=== PATIENT | female | born 1935 | race Caucasian/White ===

== ENCOUNTER → 2017-08-27 10:03 | Outpatient (CLI) | payer MEDICARE, OTHER, SELFPAY ==
[2017-08-27 12:27] LABS: Absolute Lymphocyte Count 1.67 X10^3/ul (0.83-4.51); Absolute Neutrophil Count 4.7 X10^3/uL (2.0-7.7); Basophil# 0.02 X10^3/uL; Basophil% 0.3 % (0-1); Eosinophil# 0.15 X10^3/uL; Eosinophils% 2.1 % (0-5); Hematocrit 45.1 % (37-47); Hemoglobin 14.7 g/dl (12.0-15.0); Lymphocyte # 1.67 X10^3/ul (4.0); Lymphocyte % 23.7 % (19-41); Mean Corp Hgb Conc 32.6 g/gl (32-36); Mean Corpuscular Hgb 31.1 pg (27.0-32.0); Mean Corpuscular Volume 95.3 fL (81-99); Mean Platelet Vol. 10.5 fl (6.2-12.0); Monocyte# 0.53 X10^3/uL; Monocyte% 7.5 % (0-10); Neutrophil # 4.68 X10^3/uL (2.7-7.7); Neutrophil % 66.3 % (47-70); Platelet Count 220 K/mm3 (150-450); RBC Distribution Width CV 12.9 % (11.6-14.6); RBC Distribution Width SD 44.7 fl (35.1-43.9); Red Blood Count 4.73 M/mm3 (4.2-5.4); White Blood Count 7.1 K/mm3 (4.4-11.0)
[2017-08-27 12:42] LABS: POSITIVE COUNT NO; POSITIVE DIFFERENTIAL NO; POSITIVE MORPHOLOGY NO
[2017-08-27 12:55] LABS: Vitamin D,25 Hydroxy 27.8 ng/mL (19.95-100.01)
[2017-08-27 13:12] LABS: BUN 12 mg/dL (7-18); Creatinine, Serum 0.64 mg/dL (0.55-1.02); EST Glomerular Filtration Rate 95 mL/min (>60); Glucose 94 mg/dL (74-106)
[2017-08-27 13:13] LABS: ALB/GLOB Ratio 1.1 RATIO (0.9-2.4); AST(SGOT) 18 U/L (15-37); Alanine Aminotransfer ALT/SGPT 21 U/L (13-56); Albumin, Serum 3.5 g/dL (3.2-5.0); Alkaline Phosphatase 23 U/L (45-117); Anion Gap 11 (5-15); BUN/Creat Ratio 18.9 RATIO (10-20); Calcium,Total 8.9 mg/dL (8.5-10.1); Chloride 103 mmol/L (98-107); Est Glom Filt Rate - Afr Amer 115 mL/min (>60); Globulin 3.2 g/dL (2.2-4.2); Potassium 4.2 mmol/L (3.5-5.1); Protein, Total 6.7 g/dL (6.4-8.2); Sodium Level 140 mmol/L (136-145); Thyroid Stim Hormone (TSH) 3.15 uIU/mL (0.358-3.74)
== END ==
PROVIDERS: Family Provider Family Medicine; PCP Family Medicine; Visit Provider Family Medicine
DX: I10 Essential (primary) hypertension (principal); E55.9 Vitamin D deficiency, unspecified; K59.09 Other constipation
CPT/HCPCS: 36415; 80053; 82306; 84443; 85025

== ENCOUNTER → 2017-11-17 07:31 | Outpatient (CLI) | payer MEDICARE, OTHER, SELFPAY ==
[2017-11-17 09:05] LABS: AST(SGOT) 19 U/L (15-37); Alanine Aminotransfer ALT/SGPT 19 U/L (13-56); Albumin, Serum 3.3 g/dL (3.2-5.0); Alkaline Phosphatase 24 U/L (45-117); Bilirubin, Direct 0.16 mg/dL (0.00-0.30); Cholesterol 115 mg/dL (200); Globulin 3.3 g/dL (2.2-4.2); High Density Lipoprotein 53 mg/dL; Protein, Total 6.6 g/dL (6.4-8.2); Triglycerides 84 mg/dL; Very Low Density Lipoprotein 17 mg/dL (5-40)
== END ==
PROVIDERS: Family Provider Family Medicine; PCP Family Medicine; Visit Provider Physician Assistant Medical
DX: E78.5 Hyperlipidemia, unspecified (principal); Z79.899 Other long term (current) drug therapy
CPT/HCPCS: 36415; 80061; 80076

== ENCOUNTER → 2018-02-24 09:55 | Outpatient (CLI) | payer MEDICARE, OTHER, SELFPAY ==
[2018-02-24 12:36] LABS: Anion Gap 9 (5-15); BUN 12 mg/dL (7-18); BUN/Creat Ratio 17.3 RATIO (10-20); Calcium,Total 9.1 mg/dL (8.5-10.1); Chloride 106 mmol/L (98-107); Creatinine, Urine (random) < 13.00 mg/dL (NO RANGE EST.); EST Glomerular Filtration Rate 86 mL/min (>60); Est Glom Filt Rate - Afr Amer 104 mL/min (>60); Glucose 110 mg/dL (74-106); Potassium 4.5 mmol/L (3.5-5.1); Sodium Level 141 mmol/L (136-145); Thyroid Stim Hormone (TSH) 2.69 uIU/mL (0.358-3.74)
[2018-02-25 09:13] LABS: Vitamin D,25 Hydroxy 25.6 ng/mL (29.95-100.01)
== END ==
PROVIDERS: Family Provider Family Medicine; PCP Family Medicine; Visit Provider Family Medicine
DX: I10 Essential (primary) hypertension (principal); E55.9 Vitamin D deficiency, unspecified
CPT/HCPCS: 36415; 80048; 82043; 82306; 82570; 84443

== ENCOUNTER → 2018-08-18 09:28 | Outpatient (CLI) | payer MEDICARE, OTHER, SELFPAY ==
[2018-07-13 10:03] VITALS: BMI 32.9
[2018-08-18 11:46] LABS: Anion Gap 8 (5-15); BUN 13 mg/dL (7-18); BUN/Creat Ratio 21.6 RATIO (10-20); Calcium,Total 8.6 mg/dL (8.5-10.1); Chloride 107 mmol/L (98-107); EST Glomerular Filtration Rate 101 mL/min (>60); Est Glom Filt Rate - Afr Amer 122 mL/min (>60); Glucose 107 mg/dL (74-106); Potassium 4.3 mmol/L (3.5-5.1); Sodium Level 144 mmol/L (136-145)
== END ==
PROVIDERS: Family Provider Family Medicine; PCP Family Medicine; Visit Provider Family Medicine
DX: I10 Essential (primary) hypertension (principal)
CPT/HCPCS: 36415; 80048

== ENCOUNTER → 2018-10-13 15:32 | Outpatient (CLI) | payer MEDICARE, OTHER, SELFPAY ==
[2018-07-13 10:03] VITALS: BMI 32.9
--- NOTE | 2018-10-13 15:35 | BI_ITS ---
MAMMOGRAPHY - BILATERAL SCREENING REASON FOR EXAM: Female, 83 years old. Routine annual screening examination. PERTINENT HISTORY: Non-contributory. History of bilateral excisional breast biopsies. TECHNIQUE: Digital bilateral breast lola (3D mammographic acquisition) in the CC and MLO projections. 2-D mediolateral oblique (MLO) and craniocaudad (CC) views of both breasts were obtained. CAD: Full Field Digital Mammography with Computer Added Detection was performed. COMPARISON: Comparison is made with prior study dated April 01, 2011. FINDINGS: Breast Composition: The breasts are heterogeneously dense, which may obscure small masses. There are no dominant masses or suspicious calcifications. No other significant abnormalities are identified. There has been no significant change since the prior study. BI/SCREENING MAMM (CAD), BILAT IMPRESSION: Stable bilateral screening mammogram. Yearly follow-up mammogram recommended. (A) ASSESSMENT CATEGORY: BIRADS Category 1: Negative. A letter regarding these results will be sent to the patient by the facility within 30 days. Approximately 10% of breast cancers are not detected by mammography. A normal mammogram should not delay biopsy of a clinically suspicious abnormality. [id number] Electronically Signed: Marlon Ahmadi, at 9:24 EDT , Service support ,
--- NOTE | 2018-10-13 15:38 | BD_ITS ---
STUDY: DUAL ENERGY X-RAY ABSORPTIOMETRY / DXA REASON FOR EXAM: Female, 83 years old. The patient is postmenopausal. Loss of height. TECHNIQUE: Bone Mineral Density (BMD) measurements of lumbar spine and bilateral hips were obtained. COMPARISON: None. FINDINGS: Lumbar Spine (L1-L4): g/cm2 (1.249) / T-score (0.7) / Z-score (2.6) Findings are suggestive of normal bone density with a low fracture risk. Left Femur Total: g/cm2 (0.990) / T-score (-0.1) / Z-score (2.1) Left Femoral Neck: g/cm2 (0.973) / T-score (-0.5) / Z-score (1.8) Right Femur Total: g/cm2 (0.974) / T-score (-0.3) / Z-score (1.9) Right Femoral Neck: g/cm2 (1.051) / T-score (0.1) / Z-score (2.4) BD/Dexa Bone Density Study IMPRESSION: The patient is considered normal as outlined below according to World Gerem[employer] Organization (WHO) criteria with a low fracture risk. Reference Information: The T-score is the number of standard deviations above or below the standard which is normal for young adults at their peak bone mineral density. The World Health Organization (WHO) interprets the T-scores as follows: Above -1 Normal bone density Between -1 and -2.5 Osteopenia Equal to / or below -2.5 Osteoporosis As a practical clinical guideline, osteopenia may be graded as follows: Mild -1 through -1.5 Moderate -1.6 through -2.0 Severe -2.1 through -2.4 The Z-score is the number of standard deviations above or below age-matched controls. A Z-score of less than -1.5 would be considered abnormal. References: 1. NIH Osteoporosis and Related Bone Diseases http://www.osteo.org 2. International Society for Clinical Densitometry http://www.iscd.org 3. National Osteoporosis Foundation http://www.nof.org Electronically Signed: Marlon Ahmadi, at 9:37 EDT , Service support ,
== END ==
PROVIDERS: Family Provider Family Medicine; PCP Family Medicine; Referring Provider Family Medicine; Visit Provider Family Medicine
DX: Z78.0 Asymptomatic menopausal state (principal); Z12.31 Encounter for screening mammogram for malignant neoplasm of breast
CPT/HCPCS: 77063; 77067; 77080

== ENCOUNTER 2018-11-20 14:45 | Observation (INO) | payer MEDICARE, OTHER, SELFPAY ==
[2018-07-13 10:03] VITALS: BMI 32.9
[2018-11-20] VITALS (14 sets, daily range): BP systolic 140–169; BP diastolic 46–76; PULSE 45–89; RESP 14–18; TEMP 36.6–36.7; O2SAT 95–98; BMI 34.8; BMI 34.7
--- NOTE | 2018-11-20 15:29 | EKG12_ITS ---
Test Reason : WEAKNESS Blood Pressure : / mmHG Vent. Rate : 097 BPM Atrial Rate : 097 BPM P-R Int : 174 ms QRS Dur : 090 ms QT Int : 344 ms P-R-T Axes : 052 -27 074 degrees QTc Int : 436 ms Sinus rhythm with Premature supraventricular complexes and with frequent Premature ventricular comple xes Otherwise normal ECG Confirmed by EDGAR RUTH, LALY ([id number]), scientific publications editor YOUSIF GARZA ([id number]) on 11/21/2018 3:49:46 PM Referred By: BB Confirmed By:LALY HERNÁNDEZ MD
[2018-11-20] MEDS: 0.9% Normal Saline 1,000 ML 150 ML IV (15:30)
--- NOTE | 2018-11-20 15:30 | ED.VIS.GEN ---
History of Present Illness Chief Complaint: Weakness Informant: Patient, Family Onset: Today Context: Sudden Onset - several hours ago or so Timing: Continuous Quality: heaviness Location: midsternal chest Current Severity: Mild Maximum Severity: Mild Worsened by: nothing Relieved by: nothing Associated Symptoms: fatigue. slow heart rate. Narrative: Relatively suddenly today felt very weak and tired, could tell that her heart was beating slow without feeling palpitations necessarily, and chest discomfort that has been nonpleuritic and mild. She denies any dyspnea, nausea, near syncope or syncope. No recent illnesses or cough. Does not think she has had any swelling in her legs. Had 3 stents placed in her heart in [place] for over 5 years ago or more. - Past Medical History (1) Paroxysmal atrial fibrillation Status: Chronic (2) Atherosclerotic heart disease of [place] coronary artery without angina pectoris Status: Chronic Comment: PCI/MINERVA of CX 08/27/14; PCI/MINERVA f the LAD, POBA diag 08/31/14 (3) Hyperlipemia Status: Chronic (4) Hypersomnia Status: Chronic (5) Hypertension Status: Chronic (6) Presence of stent in coronary artery Status: Chronic Comment: PCI/MINERVA of CX 08/27/14; PCI/MINERVA f the LAD, POBA diag 08/31/14 Past Medical History - Allergies and Home Meds Allergies/Adverse Reactions: Allergies amoxicillin Allergy (Verified 07/13/18 10:04) Unknown Primary Care Physician: Yosi Oliver MD [Primary Care Provider] - Surgical History: angioplasty - w/ stent, cataract, hysterectomy, tonsillectomy Smoking Status: Never smoker Drugs: None - Family History Maternal Family History: Family History (Last Reviewed 01/06/18 @ 16:15 by Clayton Felder MD) Mother CAD (coronary artery disease) Myocardial infarction Father Alzheimer disease Brother Heart disease Dementia Hypertension Family History: Reports: Diabetes Paternal Family History: Family History (Last Reviewed 01/06/18 @ 16:15 by Clayton Felder MD) Mother CAD (coronary artery disease) Myocardial infarction Father Alzheimer disease Brother Heart disease Dementia Hypertension Family History: Reports: Unknown Sibling Family History: Family History (Last Reviewed 01/06/18 @ 16:15 by Clayton Felder MD) Mother CAD (coronary artery disease) Myocardial infarction Father Alzheimer disease Brother Heart disease Dementia Hypertension Family History: Reports: Heart Disease Review of Systems General: Reports: Malaise. Denies: Chills, Fever, Sweats Eyes: Denies: Visual changes - bilaterally, Diplopia ENT: Denies: Rhinorrhea, Sore throat Cardiovascular: Reports: Chest pain. Denies: Palpitations Respiratory: Denies: Dyspnea, Cough, Dyspnea on exertion Gastrointestinal: Denies: Abdominal pain, Nausea, Vomiting, Diarrhea, Melena, Hematochezia Genitourinary: Denies: Dysuria, Hematuria, Frequency Musculoskeletal: Reports: Arthralgias - chronic, unchanged. Denies: Back pain, Swelling Skin: Denies: Rash, Wounds Neurological: Denies: Headache, Weakness, Numbness Hematologic: Reports: Easy bruising, Easy bleeding Physical Exam Vital Signs/Narrative: Vital Signs Temp Pulse Resp BP Pulse Ox 11/20/18 15:02 97 11/20/18 14:53 54 L 14 95 11/20/18 14:46 98.1 F 47 L 15 153/64 H 96 Inital Vital Signs reviewed: Yes General: Well nourished, Well developed, No Acute Distress Head: Normocephalic, Atraumatic Eyes: Perrl, EOMI ENT: Moist mucous membranes, No rhinorrhea Neck: Supple, Nontender, No JVD Cardiovascular: Regular rate, Regular rhythm, No murmurs, Bradycardia Respiratory: No distress, CTA bilaterally, Chest nontender Abdomen: Soft, Nontender, Nondistended, Normal bowel sounds Back: Nontender, Normal Inspection Extremities: Nontender, Edema - 1-2+ BLE, symmetric. Negative for: Calf Tenderness Skin: Normal color, No rash, No Trauma Neurological: Alert, Oriented x3, Cranial nerves II-XII grossly intact, Normal Strength, Normal Sensation Psychological: Normal affect, Normal Mood Diagnostic/Tx/Re-eval Impressions Chest X-Ray 11/20/18 15:31 IMPRESSION: Stable appearance of the chest with no superimposed acute finding. Electronically Signed: Jose Cruz Ordonez MD at 15:51 EDT , Service support , 11/20/18 15:31 Chest 1 View (Portable) [RAD] Stat Laboratory Results 11/20/18 11/20/18 11/20/18 14:55 14:55 14:55 WBC 6.9 RBC 4.75 Hgb 14.8 Hct 44.6 MCV 93.9 MCH 31.2 MCHC 33.2 RDW 12.9 RDW Differential 44.3 H Plt Count 205 MPV 10.4 Immature Gran % (Auto) 0.100 Neut % (Auto) 55.0 Lymph % (Auto) 32.6 [place] % (Auto) 9.3 Eos % (Auto) 2.6 Baso % (Auto) 0.4 Absolute Neuts (auto) 3.8 Absolute Lymphs (auto) 2.25 Total Counted Not Reportable APTT 40.8 H Sodium 143 Potassium 3.7 Chloride 106 Carbon Dioxide 30.0 Anion Gap 7 BUN 12 Creatinine 0.85 Estim Creat Clear Calc 41.48 Est GFR (MDRD) Af Amer 82 Est GFR (MDRD) Non-Af 68 BUN/Creatinine Ratio 14.1 Glucose 164 H Calcium 8.8 Troponin I < 0.015 - Rhythm Strip Rhythm Strip: Sinus Rhythm Rate: 97 Ectopy: PVC(s) - EKG Initial EKG Interpretation: Sinus Rhythm, No Acute Injury Pattern, - - PACs and PVCs, mostly bigeminy - Medical Decision Making Patient's chest discomfort is minimal. Her troponin is negative and her other labs are stable, her EKG shows bigeminy, I suspect she feels very weak because technically, she is bradycardic with regards to her pulse. With her chest discomfort and history of coronary artery disease I think it would be enrique to admit her to rule out acute coronary syndrome. She is amenable to this plan and stable clinically and hemodynamically at this time. Will admit to PCU. ED Disposition - Plan for ED Patient: Disposition: Acute Care Hospital [facility] Diagnosis: Chest pain, unspecified, Symptomatic bradycardia, CAD (coronary artery disease), [place] coronary artery Referrals: Yosi Oliver MD [Primary Care Provider] -
--- NOTE | 2018-11-20 15:31 | RAD_ITS ---
STUDY: X-RAY CHEST REASON FOR EXAM: Female, 83 years old. Chest pain with palpitations. TECHNIQUE: Single frontal view of the chest. COMPARISON: January 17, 2015 FINDINGS: There is stable hyperexpansion. There is no demonstrated pleural abnormality. There is borderline cardiomegaly unchanged. Normal mediastinum and kris. Normal visualized pulmonary arteries. There is atherosclerotic calcification of the aortic arch with tortuosity. Normal visualized thoracic spine. Normal visualized ribs, clavicles, and shoulders. There is no demonstrated abnormality of the visualized soft tissue structures of the upper abdomen. RAD/Chest 1 View (Portable) IMPRESSION: Stable appearance of the chest with no superimposed acute finding. Electronically Signed: Jose Cruz Ordonez MD at 15:51 EDT , Service support ,
--- NOTE | 2018-11-20 15:35 | ED.DCSUM_ITS ---
History of Present Illness Chief Complaint: Weakness Informant: Patient, Family Onset: Today Context: Sudden Onset - several hours ago or so Timing: Continuous Quality: heaviness Location: midsternal chest Current Severity: Mild Maximum Severity: Mild Worsened by: nothing Relieved by: nothing Associated Symptoms: fatigue. slow heart rate. Narrative: Relatively suddenly today felt very weak and tired, could tell that her heart was beating slow without feeling palpitations necessarily, and chest discomfort that has been nonpleuritic and mild. She denies any dyspnea, nausea, near syncope or syncope. No recent illnesses or cough. Does not think she has had any swelling in her legs. Had 3 stents placed in her heart in [place] for over 5 years ago or more. - Past Medical History (1) Paroxysmal atrial fibrillation Status: Chronic (2) Atherosclerotic heart disease of [place] coronary artery without angina pectoris Status: Chronic Comment: PCI/MINERVA of CX 08/27/14; PCI/MINERVA f the LAD, POBA diag 08/31/14 (3) Hyperlipemia Status: Chronic (4) Hypersomnia Status: Chronic (5) Hypertension Status: Chronic (6) Presence of stent in coronary artery Status: Chronic Comment: PCI/MINERVA of CX 08/27/14; PCI/MINERVA f the LAD, POBA diag 08/31/14 Past Medical History - Allergies and Home Meds Allergies/Adverse Reactions: Allergies amoxicillin Allergy (Verified 07/13/18 10:04) Unknown Primary Care Physician: Yosi Oliver MD [Primary Care Provider] - Surgical History: angioplasty - w/ stent, cataract, hysterectomy, tonsillectomy Smoking Status: Never smoker Drugs: None - Family History Maternal Family History: Family History (Last Reviewed 01/06/18 @ 16:15 by Clayton Felder MD) Mother CAD (coronary artery disease) Myocardial infarction Father Alzheimer disease Brother Heart disease Dementia Hypertension Family History: Reports: Diabetes Paternal Family History: Family History (Last Reviewed 01/06/18 @ 16:15 by Clayton Felder MD) Mother CAD (coronary artery disease) Myocardial infarction Father Alzheimer disease Brother Heart disease Dementia Hypertension Family History: Reports: Unknown Sibling Family History: Family History (Last Reviewed 01/06/18 @ 16:15 by Clayton Felder MD) Mother CAD (coronary artery disease) Myocardial infarction Father Alzheimer disease Brother Heart disease Dementia Hypertension Family History: Reports: Heart Disease Review of Systems General: Reports: Malaise. Denies: Chills, Fever, Sweats Eyes: Denies: Visual changes - bilaterally, Diplopia ENT: Denies: Rhinorrhea, Sore throat Cardiovascular: Reports: Chest pain. Denies: Palpitations Respiratory: Denies: Dyspnea, Cough, Dyspnea on exertion Gastrointestinal: Denies: Abdominal pain, Nausea, Vomiting, Diarrhea, Melena, Hematochezia Genitourinary: Denies: Dysuria, Hematuria, Frequency Musculoskeletal: Reports: Arthralgias - chronic, unchanged. Denies: Back pain, Swelling Skin: Denies: Rash, Wounds Neurological: Denies: Headache, Weakness, Numbness Hematologic: Reports: Easy bruising, Easy bleeding Physical Exam Vital Signs/Narrative: Vital Signs Temp Pulse Resp BP Pulse Ox 11/20/18 15:02 97 11/20/18 14:53 54 L 14 95 11/20/18 14:46 98.1 F 47 L 15 153/64 H 96 Inital Vital Signs reviewed: Yes General: Well nourished, Well developed, No Acute Distress Head: Normocephalic, Atraumatic Eyes: Perrl, EOMI ENT: Moist mucous membranes, No rhinorrhea Neck: Supple, Nontender, No JVD Cardiovascular: Regular rate, Regular rhythm, No murmurs, Bradycardia Respiratory: No distress, CTA bilaterally, Chest nontender Abdomen: Soft, Nontender, Nondistended, Normal bowel sounds Back: Nontender, Normal Inspection Extremities: Nontender, Edema - 1-2+ BLE, symmetric. Negative for: Calf Tenderness Skin: Normal color, No rash, No Trauma Neurological: Alert, Oriented x3, Cranial nerves II-XII grossly intact, Normal Strength, Normal Sensation Psychological: Normal affect, Normal Mood Diagnostic/Tx/Re-eval Impressions Chest X-Ray 11/20/18 15:31 IMPRESSION: Stable appearance of the chest with no superimposed acute finding. Electronically Signed: Jose Cruz Ordonez MD at 15:51 EDT , Service support , 11/20/18 15:31 Chest 1 View (Portable) [RAD] Stat Laboratory Results 11/20/18 11/20/18 11/20/18 14:55 14:55 14:55 WBC 6.9 RBC 4.75 Hgb 14.8 Hct 44.6 MCV 93.9 MCH 31.2 MCHC 33.2 RDW 12.9 RDW Differential 44.3 H Plt Count 205 MPV 10.4 Immature Gran % (Auto) 0.100 Neut % (Auto) 55.0 Lymph % (Auto) 32.6 [place] % (Auto) 9.3 Eos % (Auto) 2.6 Baso % (Auto) 0.4 Absolute Neuts (auto) 3.8 Absolute Lymphs (auto) 2.25 Total Counted Not Reportable APTT 40.8 H Sodium 143 Potassium 3.7 Chloride 106 Carbon Dioxide 30.0 Anion Gap 7 BUN 12 Creatinine 0.85 Estim Creat Clear Calc 41.48 Est GFR (MDRD) Af Amer 82 Est GFR (MDRD) Non-Af 68 BUN/Creatinine Ratio 14.1 Glucose 164 H Calcium 8.8 Troponin I < 0.015 - Rhythm Strip Rhythm Strip: Sinus Rhythm Rate: 97 Ectopy: PVC(s) - EKG Initial EKG Interpretation: Sinus Rhythm, No Acute Injury Pattern, - - PACs and PVCs, mostly bigeminy - Medical Decision Making Patient's chest discomfort is minimal. Her troponin is negative and her other labs are stable, her EKG shows bigeminy, I suspect she feels very weak because technically, she is bradycardic with regards to her pulse. With her chest discomfort and history of coronary artery disease I think it would be enrique to admit her to rule out acute coronary syndrome. She is amenable to this plan and stable clinically and hemodynamically at this time. Will admit to PCU. ED Disposition - Plan for ED Patient: Disposition: Acute Care Hospital [facility] Diagnosis: Chest pain, unspecified, Symptomatic bradycardia, CAD (coronary artery disease), [place] coronary artery Referrals: Yosi Oliver MD [Primary Care Provider] -
[2018-11-20 15:44] LABS: Absolute Lymphocyte Count 2.25 X10^3/ul (0.83-4.51); Absolute Neutrophil Count 3.8 X10^3/uL (2.0-7.7); Basophil# 0.03 X10^3/uL; Basophil% 0.4 % (0-1); Eosinophil# 0.18 X10^3/uL; Eosinophils% 2.6 % (0-5); Hematocrit 44.6 % (37-47); Hemoglobin 14.8 g/dl (12.0-15.0); Lymphocyte # 2.25 X10^3/ul (4.0); Lymphocyte % 32.6 % (19-41); Mean Corp Hgb Conc 33.2 g/gl (32-36); Mean Corpuscular Hgb 31.2 pg (27.0-32.0); Mean Corpuscular Volume 93.9 fL (81-99); Mean Platelet Vol. 10.4 fl (6.2-12.0); Monocyte# 0.64 X10^3/uL; Monocyte% 9.3 % (0-10); Neutrophil # 3.79 X10^3/uL (2.7-7.7); Platelet Count 205 K/mm3 (150-450); RBC Distribution Width CV 12.9 % (11.6-14.6); RBC Distribution Width SD 44.3 fl (35.1-43.9); Red Blood Count 4.75 M/mm3 (4.2-5.4); White Blood Count 6.9 K/mm3 (4.4-11.0)
[2018-11-20 15:47] LABS: POSITIVE COUNT NO; POSITIVE DIFFERENTIAL NO; POSITIVE MORPHOLOGY NO
[2018-11-20 15:55] LABS: Anion Gap 7 (5-15); BUN 12 mg/dL (7-18); BUN/Creat Ratio 14.1 RATIO (10-20); Calcium,Total 8.8 mg/dL (8.5-10.1); Chloride 106 mmol/L (98-107); Creatinine, Serum 0.85 mg/dL (0.55-1.02); EST Glomerular Filtration Rate 68 mL/min (>60); Est Glom Filt Rate - Afr Amer 82 mL/min (>60); Estimated Creatinine Clearance 41.48 ml/min; Glucose 164 mg/dL (74-106); Potassium 3.7 mmol/L (3.5-5.1); Sodium Level 143 mmol/L (136-145)
[2018-11-20 15:56] LABS: Partial Thromboplast Time 40.8 Seconds (24.1-36.2)
--- NOTE | 2018-11-20 16:13 | NURSING ---
DR SINGER FOR DR NATHAN
--- NOTE | 2018-11-20 16:17 | NURSING ---
PCU OBS CP, NITA SINGER
[2018-11-20 16:18] LABS: Bacteria 0 SEEN /hpf (None Seen); Mucous, Urine 0 SEEN /hpf (<or=2+)
[2018-11-20 16:22] LABS: Color, Urine Yellow (Yellow); Glucose, Dipstick Normal (Normal); Ketone-Dipstick Negative (Negative); Leukocyte Esterase-Dipstick 500 /ul (Negative); Nitrite-Dipstick Negative (Negative); Occult Blood-Urine 50 /ul (Negative); Protein-Dipstick Negative (Negative); Urine Bilirubin Dipstick Negative (Negative); Urine Clarity Clear (Clear); Urine Urobilinogen Normal (Normal)
[2018-11-20 16:26] LABS: Red Blood Cells-Urine 0-5 SEEN /hpf (0-5); White Blood Cells 10-25 SEEN /hpf (0-5)
[2018-11-20 16:27] LABS: Squamous Epithelial Cells - UA 5-10 SEEN /hpf (5-10)
--- NOTE | 2018-11-20 16:40 | PCM.HP.STD ---
Problem List (1) Ventricular bigeminy Status: Acute (2) Chest pain Status: Acute Qualifiers: Chest pain type: unspecified Qualified Code(s): R07.9 - Chest pain, unspecified History of Present Illness Date of Admission: 11/20/18 Chief Complaint: chest pain. weak The patient is a 83 year old F who was in her normal state of health, up until this morning when she was at [employer] her patient just felt weak. Patient was experiencing her heart pounding and was just having this chest discomfort that did not radiate. Presented to the emergency room and was found to be in ventricular bigeminy. Heart rate was measuring in the 90s, but her actual pulse was about half that. Patient did receive IV fluids in the emergency room and had troponins and EKG, other than the bigeminy, that were negative. Patient being brought in under observation status for further evaluation regards to the bigeminy with cardiac evaluation and serial troponins. [] Past Medical History Past Medical History (Chronic Problems): Chronic Problems (Last Reviewed 11/20/18 @ 16:42 by Yosi Chairez DO) Presence of stent in coronary artery (Chronic) PCI/MINERVA of CX 08/27/14; PCI/MINERVA f the LAD, POBA diag 08/31/14 Atherosclerotic heart disease of [place] coronary artery without angina pectoris (Chronic) PCI/MINERVA of CX 08/27/14; PCI/MINERVA f the LAD, POBA diag 08/31/14 Paroxysmal atrial fibrillation (Chronic) Palpitations (Chronic) Long-term use of high-risk medication (Chronic) Hyperlipemia (Chronic) Hypoxemia (Chronic) Abnormal PFT (Chronic) Hypersomnia (Chronic) NSTEMI (non-ST elevated myocardial infarction) (Chronic) Hypertension (Chronic) Medical History: Medical History (Last Reviewed 11/20/18 @ 16:42 by Yosi Chairez DO) Atherosclerotic heart disease of [place] coronary artery without angina pectoris (Chronic) I25.10 PCI/MINERVA of CX 08/27/14; PCI/MINERVA f the LAD, POBA diag 08/31/14 Paroxysmal atrial fibrillation (Chronic) I48.0 Palpitations (Chronic) R00.2 Myocardial infarct (Resolved) I21.9 Long-term use of high-risk medication (Chronic) Z79.899 Hyperlipemia (Chronic) E78.5 Hypoxemia (Chronic) R09.02 Abnormal PFT (Chronic) R94.2 Hypersomnia (Chronic) G47.10 NSTEMI (non-ST elevated myocardial infarction) (Chronic) I21.4 Chest pain (Acute) R07.9 Hypertension (Chronic) I10 Pain in joint of left wrist M25.532 IBS (irritable bowel syndrome) K58.9 Ganglion cyst of dorsum of left wrist M67.432 Allergies amoxicillin Allergy (Verified 07/13/18 10:04) Unknown Home Medications: Ambulatory Orders Medication Instructions Recorded Aspirin [Aspirin, Baby] 81 mg PO DAILY 01/17/15 Atorvastatin Calcium [Lipitor] 40 mg PO QHS 01/17/15 Nitroglycerin (INPATIENT USE) 0.4 mg SUBLINGUAL Q5M PRN 01/17/15 [Nitrostat] Cholecalciferol (Vitamin D3) 1,000 unit PO DAILY 10/09/16 [Vitamin D3] Isosorbide Mononitrate [Imdur] 30 mg PO DAILY 10/09/16 Multivitamin [Daily Multiple 1 ea PO DAILY 10/09/16 Vitamin] Quinapril HCl [Accupril] 5 mg PO DAILY 10/09/16 ascorbic acid (vitamin C) 1,000 mg 3 g PO QDAY tab 09/01/17 tablet calcium citrate 250 mg tablet 250 mg PO BID tab 09/01/17 rivaroxaban 15 mg tablet 15 mg PO QDAY #30 tab 08/19/18 metoprolol tartrate 50 mg tablet 50 mg PO BID #60 tab 10/20/18 Docusate Sodium [Stool Softener] 100 mg PO QHS 11/20/18 Surgical History: Surgical History (Last Reviewed 11/20/18 @ 16:42 by Yosi Chairez DO) Presence of stent in coronary artery (Chronic) Z95.5 PCI/MINERVA of CX 08/27/14; PCI/MINERVA f the LAD, POBA diag 08/31/14 S/P wrist surgery Z98.890 Postsurgical percutaneous transluminal coronary angioplasty (PTCA) status Z98.61 PCI/MINERVA of CX 08/27/14; PCI/MINERVA f the LAD, POBA diag 08/31/14 Surgical History: angioplasty - w/ stent, cataract, hysterectomy, tonsillectomy Smoking Status: Never smoker Drugs: None - *Family History Maternal Family History: Family History (Last Reviewed 11/20/18 @ 16:42 by Yosi Chairez DO) Mother CAD (coronary artery disease) Myocardial infarction Father Alzheimer disease Brother Heart disease Dementia Hypertension History Items: Diabetes Paternal Family History: Family History (Last Reviewed 11/20/18 @ 16:42 by Yosi Chairez DO) Mother CAD (coronary artery disease) Myocardial infarction Father Alzheimer disease Brother Heart disease Dementia Hypertension History Items: Unknown Sibling Family History: Family History (Last Reviewed 11/20/18 @ 16:42 by Yosi Chairez DO) Mother CAD (coronary artery disease) Myocardial infarction Father Alzheimer disease Brother Heart disease Dementia Hypertension History Items: Heart Disease Review of Systems Constitutional: Reports: Weakness. Denies: Anorexia, Chills, Fever Eyes: Denies: Blurred vision, Double vision HEENT: Denies: Head Aches, Sinus Congestion, Sinus Drainage Cardiovascular: Reports: Chest Pain. Denies: Edema Respiratory: Denies: Cough, Shortness of breath at rest, Sputum production Gastrointestinal: Denies: Abdominal Pain, Nausea, Vomiting Genitourinary: Denies: Dysuria Musculoskeletal: Denies: Joint Pain, Joint Tenderness Skin: Denies: Dryness, Jaundice Neurological: Denies: Numbness, Tingling, Focal weakness Psychiatric: Denies: Anxiety, Depression Hematologic/ Lymphatic: Denies: Easy Bruising, Easy Bleeding, Hx of blood clot Comment: A 10 point review of systems were negative except as mentioned in the history of present illness and the other review of systems. VTE Information - Inpt Only VTE Present on Admission: No VTE Mechan Device Prophylaxis: None VTE Pharm Prophylaxis ordered?: No Reason prophylaxis not ordered:: Procedure Not Indicated Patient Problems: Active and Suspected Problems (Last Reviewed 11/20/18 @ 16:42 by Yosi Chairez DO) Symptomatic bradycardia (Acute) CAD (coronary artery disease), [place] coronary artery (Acute) Ventricular bigeminy (Acute) Chest pain (Acute) Chest pain (Acute) - Physical Exam General: Alert, Cooperative, No apparent distress HEENT: Atraumatic, Normocephalic Oral: Moist Mucosa, No Gingival or Mucosal Lesions/ Ulcerations Neck: No Nodes, Thyroid Normal Size and Texture Lungs: Clear to auscultation, Normal air movement, No rhonchi, No wheeze Cardiovascular: No murmurs, Bradycardic Abdomen: Bowel Sounds Present Extremities: No edema, No Calf Tenderness Skin: No rashes, No breakdown Musculoskeletal: No Tenderness to Palpation of Joints or Extremities, No Muscle Wasting Neurological: Deep Tendon Reflexes 2+/4 and Symmetrical, - - No clonus Psych/Mental Status: Normal Affect, Appropriate Vital Signs Temp Pulse Resp BP Pulse Ox 36.7 C 54 L 14 153/64 H 97 11/20/18 14:46 11/20/18 14:53 11/20/18 14:53 11/20/18 14:46 11/20/18 15:29 Oxygen Flow Rate (L/min) 2 Oxygen Delivery Method Nasal Cannula Weight: 89.2 kg Body Mass Index (BMI) 34.8 Laboratory Tests Past 24 Hrs 11/20/18 11/20/18 11/20/18 14:55 14:55 14:55 WBC 6.9 RBC 4.75 Hgb 14.8 Hct 44.6 MCV 93.9 MCH 31.2 MCHC 33.2 RDW 12.9 RDW Differential 44.3 H Plt Count 205 MPV 10.4 Immature Gran % (Auto) 0.100 Neut % (Auto) 55.0 Lymph % (Auto) 32.6 [place] % (Auto) 9.3 Eos % (Auto) 2.6 Baso % (Auto) 0.4 Absolute Neuts (auto) 3.8 Absolute Lymphs (auto) 2.25 Total Counted Not Reportable APTT 40.8 H Sodium 143 Potassium 3.7 Chloride 106 Carbon Dioxide 30.0 Anion Gap 7 BUN 12 Creatinine 0.85 Estim Creat Clear Calc 41.48 Est GFR (MDRD) Af Amer 82 Est GFR (MDRD) Non-Af 68 BUN/Creatinine Ratio 14.1 Glucose 164 H Calcium 8.8 Troponin I < 0.015 Urine Color Urine Clarity Urine pH Ur Specific [place] Urine Protein Urine Glucose (UA) Urine Ketones Urine Occult Blood Urine Nitrite Urine Bilirubin Urine Urobilinogen Ur Leukocyte Esterase Urine RBC Urine WBC Ur Squamous Epith Cells Urine Bacteria Urine Mucus 11/20/18 16:05 WBC RBC Hgb Hct MCV MCH MCHC RDW RDW Differential Plt Count MPV Immature Gran % (Auto) Neut % (Auto) Lymph % (Auto) [place] % (Auto) Eos % (Auto) Baso % (Auto) Absolute Neuts (auto) Absolute Lymphs (auto) Total Counted APTT Sodium Potassium Chloride Carbon Dioxide Anion Gap BUN Creatinine Estim Creat Clear Calc Est GFR (MDRD) Af Amer Est GFR (MDRD) Non-Af BUN/Creatinine Ratio Glucose Calcium Troponin I Urine Color Yellow Urine Clarity Clear Urine pH 6.0 Ur Specific [place] 1.020 Urine Protein Negative Urine Glucose (UA) Normal Urine Ketones Negative Urine Occult Blood 50 H Urine Nitrite Negative Urine Bilirubin Negative Urine Urobilinogen Normal Ur Leukocyte Esterase 500 H Urine RBC 0-5 SEEN Urine WBC 10-25 SEEN Ur Squamous Epith Cells 5-10 SEEN Urine Bacteria 0 SEEN Urine Mucus 0 SEEN Clinical Impression(s) from Imaging Studies Chest X-Ray 11/20/18 15:31 IMPRESSION: Stable appearance of the chest with no superimposed acute finding. Electronically Signed: Jose Cruz Ordonez MD at 15:51 EDT , Service support , EKG reveals ventricular bigeminy. No other acute changes noted. Assessment/Plan All Active Problems (Last Reviewed 11/20/18 @ 16:42 by Yosi Chairez DO) Symptomatic bradycardia (Acute) CAD (coronary artery disease), [place] coronary artery (Acute) Ventricular bigeminy (Acute) Chest pain (Acute) Myocardial infarct (Resolved) Chest pain (Acute) 1. Ventricular bigeminy Telemetric a heart rate measuring in the 90s, but actual pulses half that. That likely explains her just weakness and likely her palpitations. Given her low pulse, despite her heart rate being normal, we will hold her metoprolol for now. Consult cardiology for further input. Dr. Beth has been contacted. Cycle troponins. Check an echocardiogram. Check TSH Will replace potassium to level 4, check magnesium level as well. 2. Chest pain Patient characterize this more is just the pulsation in her chest. Not sure if that is due to 2 beats stacked on top of each other or not that is causing the sensation. Will consult cardiology as mentioned above Cycle troponins Continue aspirin and atorvastatin 3. Paroxysmal atrial fibrillation Currently anticoagulated on rivaroxaban Metoprolol on hold for now please see #1 for further details. 4. Hyperglycemia No history of diabetes Hemoglobin A1c from 2013 was 6.1 patient will be on moderate dose sliding scale 5. VTE prophylaxis Not indicated as patient is a low risk due to this being in observation status today and as well as she is already on anticoagulation with rivaroxaban. Additionally, patient being given antibiotics in the emergency room. On review the patient's urinalysis I am not concerned for urinary tract infection will not continue antibiotics. Code Visit OBSV E&M: [id number] Initial observation care L3
--- NOTE | 2018-11-20 16:49 | HP.PCM_ITS ---
Problem List (1) Ventricular bigeminy Status: Acute (2) Chest pain Status: Acute Qualifiers: Chest pain type: unspecified Qualified Code(s): R07.9 - Chest pain, unspecified History of Present Illness Date of Admission: 11/20/18 Chief Complaint: chest pain. weak The patient is a 83 year old F who was in her normal state of health, up until this morning when she was at [employer] her patient just felt weak. Patient was experiencing her heart pounding and was just having this chest discomfort that did not radiate. Presented to the emergency room and was found to be in ventricular bigeminy. Heart rate was measuring in the 90s, but her actual pulse was about half that. Patient did receive IV fluids in the emergency room and had troponins and EKG, other than the bigeminy, that were negative. Patient being brought in under observation status for further evaluation regards to the bigeminy with cardiac evaluation and serial troponins. [] Past Medical History Past Medical History (Chronic Problems): Chronic Problems (Last Reviewed 11/20/18 @ 16:42 by Yosi Chairez DO) Presence of stent in coronary artery (Chronic) PCI/MINERVA of CX 08/27/14; PCI/MINERVA f the LAD, POBA diag 08/31/14 Atherosclerotic heart disease of [place] coronary artery without angina pectoris (Chronic) PCI/MINERVA of CX 08/27/14; PCI/MINERVA f the LAD, POBA diag 08/31/14 Paroxysmal atrial fibrillation (Chronic) Palpitations (Chronic) Long-term use of high-risk medication (Chronic) Hyperlipemia (Chronic) Hypoxemia (Chronic) Abnormal PFT (Chronic) Hypersomnia (Chronic) NSTEMI (non-ST elevated myocardial infarction) (Chronic) Hypertension (Chronic) Medical History: Medical History (Last Reviewed 11/20/18 @ 16:42 by Yosi Chairez DO) Atherosclerotic heart disease of [place] coronary artery without angina pectoris (Chronic) I25.10 PCI/MINERVA of CX 08/27/14; PCI/MINERVA f the LAD, POBA diag 08/31/14 Paroxysmal atrial fibrillation (Chronic) I48.0 Palpitations (Chronic) R00.2 Myocardial infarct (Resolved) I21.9 Long-term use of high-risk medication (Chronic) Z79.899 Hyperlipemia (Chronic) E78.5 Hypoxemia (Chronic) R09.02 Abnormal PFT (Chronic) R94.2 Hypersomnia (Chronic) G47.10 NSTEMI (non-ST elevated myocardial infarction) (Chronic) I21.4 Chest pain (Acute) R07.9 Hypertension (Chronic) I10 Pain in joint of left wrist M25.532 IBS (irritable bowel syndrome) K58.9 Ganglion cyst of dorsum of left wrist M67.432 Allergies amoxicillin Allergy (Verified 07/13/18 10:04) Unknown Home Medications: Ambulatory Orders Medication Instructions Recorded Aspirin [Aspirin, Baby] 81 mg PO DAILY 01/17/15 Atorvastatin Calcium [Lipitor] 40 mg PO QHS 01/17/15 Nitroglycerin (INPATIENT USE) 0.4 mg SUBLINGUAL Q5M PRN 01/17/15 [Nitrostat] Cholecalciferol (Vitamin D3) 1,000 unit PO DAILY 10/09/16 [Vitamin D3] Isosorbide Mononitrate [Imdur] 30 mg PO DAILY 10/09/16 Multivitamin [Daily Multiple 1 ea PO DAILY 10/09/16 Vitamin] Quinapril HCl [Accupril] 5 mg PO DAILY 10/09/16 ascorbic acid (vitamin C) 1,000 mg 3 g PO QDAY tab 09/01/17 tablet calcium citrate 250 mg tablet 250 mg PO BID tab 09/01/17 rivaroxaban 15 mg tablet 15 mg PO QDAY #30 tab 08/19/18 metoprolol tartrate 50 mg tablet 50 mg PO BID #60 tab 10/20/18 Docusate Sodium [Stool Softener] 100 mg PO QHS 11/20/18 Surgical History: Surgical History (Last Reviewed 11/20/18 @ 16:42 by Yosi Chairez DO) Presence of stent in coronary artery (Chronic) Z95.5 PCI/MINERVA of CX 08/27/14; PCI/MINERVA f the LAD, POBA diag 08/31/14 S/P wrist surgery Z98.890 Postsurgical percutaneous transluminal coronary angioplasty (PTCA) status Z98.61 PCI/MINERVA of CX 08/27/14; PCI/MINERVA f the LAD, POBA diag 08/31/14 Surgical History: angioplasty - w/ stent, cataract, hysterectomy, tonsillectomy Smoking Status: Never smoker Drugs: None - *Family History Maternal Family History: Family History (Last Reviewed 11/20/18 @ 16:42 by Yosi Chairez DO) Mother CAD (coronary artery disease) Myocardial infarction Father Alzheimer disease Brother Heart disease Dementia Hypertension History Items: Diabetes Paternal Family History: Family History (Last Reviewed 11/20/18 @ 16:42 by Yosi Chairez DO) Mother CAD (coronary artery disease) Myocardial infarction Father Alzheimer disease Brother Heart disease Dementia Hypertension History Items: Unknown Sibling Family History: Family History (Last Reviewed 11/20/18 @ 16:42 by Yosi Chairez DO) Mother CAD (coronary artery disease) Myocardial infarction Father Alzheimer disease Brother Heart disease Dementia Hypertension History Items: Heart Disease Review of Systems Constitutional: Reports: Weakness. Denies: Anorexia, Chills, Fever Eyes: Denies: Blurred vision, Double vision HEENT: Denies: Head Aches, Sinus Congestion, Sinus Drainage Cardiovascular: Reports: Chest Pain. Denies: Edema Respiratory: Denies: Cough, Shortness of breath at rest, Sputum production Gastrointestinal: Denies: Abdominal Pain, Nausea, Vomiting Genitourinary: Denies: Dysuria Musculoskeletal: Denies: Joint Pain, Joint Tenderness Skin: Denies: Dryness, Jaundice Neurological: Denies: Numbness, Tingling, Focal weakness Psychiatric: Denies: Anxiety, Depression Hematologic/ Lymphatic: Denies: Easy Bruising, Easy Bleeding, Hx of blood clot Comment: A 10 point review of systems were negative except as mentioned in the history of present illness and the other review of systems. VTE Information - Inpt Only VTE Present on Admission: No VTE Mechan Device Prophylaxis: None VTE Pharm Prophylaxis ordered?: No Reason prophylaxis not ordered:: Procedure Not Indicated Patient Problems: Active and Suspected Problems (Last Reviewed 11/20/18 @ 16:42 by Yosi Chairez DO) Symptomatic bradycardia (Acute) CAD (coronary artery disease), [place] coronary artery (Acute) Ventricular bigeminy (Acute) Chest pain (Acute) Chest pain (Acute) - Physical Exam General: Alert, Cooperative, No apparent distress HEENT: Atraumatic, Normocephalic Oral: Moist Mucosa, No Gingival or Mucosal Lesions/ Ulcerations Neck: No Nodes, Thyroid Normal Size and Texture Lungs: Clear to auscultation, Normal air movement, No rhonchi, No wheeze Cardiovascular: No murmurs, Bradycardic Abdomen: Bowel Sounds Present Extremities: No edema, No Calf Tenderness Skin: No rashes, No breakdown Musculoskeletal: No Tenderness to Palpation of Joints or Extremities, No Muscle Wasting Neurological: Deep Tendon Reflexes 2+/4 and Symmetrical, - - No clonus Psych/Mental Status: Normal Affect, Appropriate Vital Signs Temp Pulse Resp BP Pulse Ox 36.7 C 54 L 14 153/64 H 97 11/20/18 14:46 11/20/18 14:53 11/20/18 14:53 11/20/18 14:46 11/20/18 15:29 Oxygen Flow Rate (L/min) 2 Oxygen Delivery Method Nasal Cannula Weight: 89.2 kg Body Mass Index (BMI) 34.8 Laboratory Tests Past 24 Hrs 11/20/18 11/20/18 11/20/18 14:55 14:55 14:55 WBC 6.9 RBC 4.75 Hgb 14.8 Hct 44.6 MCV 93.9 MCH 31.2 MCHC 33.2 RDW 12.9 RDW Differential 44.3 H Plt Count 205 MPV 10.4 Immature Gran % (Auto) 0.100 Neut % (Auto) 55.0 Lymph % (Auto) 32.6 [place] % (Auto) 9.3 Eos % (Auto) 2.6 Baso % (Auto) 0.4 Absolute Neuts (auto) 3.8 Absolute Lymphs (auto) 2.25 Total Counted Not Reportable APTT 40.8 H Sodium 143 Potassium 3.7 Chloride 106 Carbon Dioxide 30.0 Anion Gap 7 BUN 12 Creatinine 0.85 Estim Creat Clear Calc 41.48 Est GFR (MDRD) Af Amer 82 Est GFR (MDRD) Non-Af 68 BUN/Creatinine Ratio 14.1 Glucose 164 H Calcium 8.8 Troponin I < 0.015 Urine Color Urine Clarity Urine pH Ur Specific [place] Urine Protein Urine Glucose (UA) Urine Ketones Urine Occult Blood Urine Nitrite Urine Bilirubin Urine Urobilinogen Ur Leukocyte Esterase Urine RBC Urine WBC Ur Squamous Epith Cells Urine Bacteria Urine Mucus 11/20/18 16:05 WBC RBC Hgb Hct MCV MCH MCHC RDW RDW Differential Plt Count MPV Immature Gran % (Auto) Neut % (Auto) Lymph % (Auto) [place] % (Auto) Eos % (Auto) Baso % (Auto) Absolute Neuts (auto) Absolute Lymphs (auto) Total Counted APTT Sodium Potassium Chloride Carbon Dioxide Anion Gap BUN Creatinine Estim Creat Clear Calc Est GFR (MDRD) Af Amer Est GFR (MDRD) Non-Af BUN/Creatinine Ratio Glucose Calcium Troponin I Urine Color Yellow Urine Clarity Clear Urine pH 6.0 Ur Specific [place] 1.020 Urine Protein Negative Urine Glucose (UA) Normal Urine Ketones Negative Urine Occult Blood 50 H Urine Nitrite Negative Urine Bilirubin Negative Urine Urobilinogen Normal Ur Leukocyte Esterase 500 H Urine RBC 0-5 SEEN Urine WBC 10-25 SEEN Ur Squamous Epith Cells 5-10 SEEN Urine Bacteria 0 SEEN Urine Mucus 0 SEEN Clinical Impression(s) from Imaging Studies Chest X-Ray 11/20/18 15:31 IMPRESSION: Stable appearance of the chest with no superimposed acute finding. Electronically Signed: Jose Cruz Ordonez MD at 15:51 EDT , Service support , EKG reveals ventricular bigeminy. No other acute changes noted. Assessment/Plan All Active Problems (Last Reviewed 11/20/18 @ 16:42 by Yosi Chairez DO) Symptomatic bradycardia (Acute) CAD (coronary artery disease), [place] coronary artery (Acute) Ventricular bigeminy (Acute) Chest pain (Acute) Myocardial infarct (Resolved) Chest pain (Acute) 1. Ventricular bigeminy * Telemetric a heart rate measuring in the 90s, but actual pulses half that. That likely explains her just weakness and likely her palpitations. * Given her low pulse, despite her heart rate being normal, we will hold her metoprolol for now. * Consult cardiology for further input. Dr. Beth has been contacted. * Cycle troponins. * Check an echocardiogram. * Check TSH * Will replace potassium to level 4, check magnesium level as well. 2. Chest pain * Patient characterize this more is just the pulsation in her chest. Not sure if that is due to 2 beats stacked on top of each other or not that is causing the sensation. * Will consult cardiology as mentioned above * Cycle troponins * Continue aspirin and atorvastatin 3. Paroxysmal atrial fibrillation * Currently anticoagulated on rivaroxaban * Metoprolol on hold for now please see #1 for further details. 4. Hyperglycemia * No history of diabetes * Hemoglobin A1c from 2013 was 6.1 * patient will be on moderate dose sliding scale 5. VTE prophylaxis * Not indicated as patient is a low risk due to this being in observation status today and as well as she is already on anticoagulation with rivaroxaban. Additionally, patient being given antibiotics in the emergency room. On review the patient's urinalysis I am not concerned for urinary tract infection will not continue antibiotics. Code Visit OBSV E&M: [id number] Initial observation care L3
--- NOTE | 2018-11-20 17:02 | ECHOD_ITS ---
Reason For Study: Chest pain Procedure This was a 2D Doppler, Color Flow transthoracic echocardiogram. Exam performed portable in patient room. Left Ventricle Normal LV size. Mild concentric left ventricular hypertrophy. The estimated ejection fraction is 70 %. Unable to assess diastolic dysfunction due to arrhythmia. No regional wall motion abnormalities noted. Right Ventricle Normal RV size. Normal systolic function. Atria Normal left atrium. Normal right atrium. Mitral Valve Normal mitral valve. Tricuspid Valve Normal tricuspid valve. Mild (1+) tricuspid valve insufficiency. Pulmonary artery systolic pressure is 30 mmHg. Aortic Valve Trisinus/trileaflet aortic valve. Mild focal aortic valve thickening. Pulmonic Valve Normal pulmonic valve. Great Vessels Normal aortic root. The pulmonary artery is normal size. Normal inferior vena cava. Pericardium/Pleural No pericardial effusion. MMode/2D Measurements & Calculations LVIDd: 3.5 cm IVSd: 1.2 cm Ao root diam: 3.6 cm LVIDs: 2.3 cm LVPWd: 1.2 cm RVDd: 3.0 cm FS: 34.9 % LAV(MOD-bp): 59.7 ml LA A4 area: 19.2 cm2 LA dimension(2D): 4.5 cm LAV(MOD-bp) Indexed: 31.1 ml/m2 LAV(MOD-sp2): 65.5 ml LAV(MOD-sp4): 49.5 ml RA A4 area: 15.0 cm2 Doppler Measurements & Calculations MV E max kevon: 102.9 cm/sec Ao V2 max: 143.8 cm/sec LV V1 max: 89.8 cm/sec Ao max P.3 mmHg LV V1 max P.2 mmHg PA V2 max: 116.0 cm/sec TR max kevon: 257.0 cm/sec TR max P.4 mmHg Interpretation Summary Normal LV size. Mild concentric left ventricular hypertrophy. The estimated ejection fraction is 70 %. Mild (1+) tricuspid valve insufficiency. Pulmonary artery systolic pressure is 30 mmHg. Unable to assess diastolic dysfunction due to arrhythmia. Compared to prior study, there is no significant change. Ordering Physician: Yosi Chairez Referring Physician: Yosi Oliver MD Performed By: Dayna Tsang RDCS
[2018-11-20 17:28] LABS: Hemoglobin A1c 6.2 % (4.2-6.3)
--- NOTE | 2018-11-20 17:34 | EKG12_ITS ---
Test Reason : AM EKG Blood Pressure : / mmHG Vent. Rate : 073 BPM Atrial Rate : 073 BPM P-R Int : 178 ms QRS Dur : 084 ms QT Int : 392 ms P-R-T Axes : 042 -16 050 degrees QTc Int : 431 ms Normal sinus rhythm Normal ECG When compared with ECG of 20-NOV-2018 19:55, MANUAL COMPARISON REQUIRED, DATA IS UNCONFIRMED Confirmed by EDGAR RUTH, LALY ([id number]), online content editor JASON REYES ([id number]) on 11/22/2018 11:17:06 AM Referred By: LUCRECIA Confirmed By:LALY HERNÁNDEZ MD
--- NOTE | 2018-11-20 17:50 | PCM.CONS.C ---
Problem List (1) Fatigue Status: Acute Qualifiers: Fatigue type: unspecified Qualified Code(s): R53.83 - Other fatigue (2) Symptomatic bradycardia Status: Acute (3) Ectopic cardiac beats Status: Chronic (4) Paroxysmal atrial fibrillation Status: Chronic (5) CAD (coronary artery disease), [place] coronary artery Status: Chronic Qualifiers: [place] vs. transplanted heart: [place] heart (6) Presence of stent in coronary artery Status: Chronic Comment: PCI/MINERVA of CX 08/27/14; PCI/MINERVA f the LAD, POBA diag 08/31/14 (7) Hyperlipemia Status: Chronic Qualifiers: Hyperlipidemia type: pure hypercholesterolemia Qualified Code(s): E78.00 - Pure hypercholesterolemia, unspecified; E78.0 - Pure hypercholesterolemia (8) Hypertension Status: Chronic Qualifiers: Hypertension type: essential hypertension Qualified Code(s): I10 - Essential (primary) hypertension Reason for Consult Date of Consultation: 11/20/18 History of Present Illness: The patient is a 83 year old female with a past medical history of PACs/PVCs, paroxysmal atrial fibrillation, CAD, status post PTCA/stent to the LCx system and PTCA/stent to the LAD system, hyperlipidemia, and hypertension who presents for evaluation of fatigue and concerns of symptomatic bradycardia and underlying cardiac ectopy. She states she has been more fatigued than usual recently. However, today she noted following faith she became more abruptly fatigued and felt that she had to push to get anything accomplished. She denied any ongoing palpitations. There was no near syncope or syncope. She states she felt somewhat more short of breath and dyspneic. She also felt somewhat of a heaviness on her chest. She was subsequently brought to the emergency department for further evaluation. There she was found on evaluation to have an abnormal cardiac rate/rhythm thought concerning for underlying bradycardia with PACs and PVCs in the pattern of atrial bigeminy/ventricular bigeminy. Her initial troponin I level was negative. Her ECG did not demonstrate other new acute ECG changes. She was then placed in the PCU for further evaluation. A repeat ECG appeared to be without significant change. She was evaluated by internal medicine. Based upon concerns of her symptoms and her bradycardia dysrhythmia her beta-blockers were placed on hold. She has denied ongoing orthopnea or PND or worsening peripheral pitting edema. Again she states there is been no near syncope or syncope. Her main concern is been progressive fatigue and being much more prominent today. [] Past Medical History Allergies/Adverse Reactions: Allergies amoxicillin Allergy (Verified 07/13/18 10:04) Unknown Home Medications: Ambulatory Orders Medication Instructions Recorded Aspirin [Aspirin, Baby] 81 mg PO DAILY 01/17/15 Atorvastatin Calcium [Lipitor] 40 mg PO QHS 01/17/15 Nitroglycerin (INPATIENT USE) 0.4 mg SUBLINGUAL Q5M PRN 01/17/15 [Nitrostat] Cholecalciferol (Vitamin D3) 1,000 unit PO DAILY 10/09/16 [Vitamin D3] Isosorbide Mononitrate [Imdur] 30 mg PO DAILY 10/09/16 Multivitamin [Daily Multiple 1 ea PO DAILY 10/09/16 Vitamin] Quinapril HCl [Accupril] 5 mg PO DAILY 10/09/16 ascorbic acid (vitamin C) 1,000 mg 3 g PO QDAY tab 09/01/17 tablet calcium citrate 250 mg tablet 250 mg PO BID tab 09/01/17 rivaroxaban 15 mg tablet 15 mg PO QDAY #30 tab 08/19/18 metoprolol tartrate 50 mg tablet 50 mg PO BID #60 tab 10/20/18 Docusate Sodium [Stool Softener] 100 mg PO QHS 11/20/18 Past Medical History (Chronic Problems): Chronic Problems (Last Reviewed 11/20/18 @ 16:42 by Yosi Chairez DO) CAD (coronary artery disease), [place] coronary artery (Chronic) Ectopic cardiac beats (Chronic) Presence of stent in coronary artery (Chronic) PCI/MINERVA of CX 08/27/14; PCI/MINERVA f the LAD, POBA diag 08/31/14 Atherosclerotic heart disease of [place] coronary artery without angina pectoris (Chronic) PCI/MINERVA of CX 08/27/14; PCI/MINERVA f the LAD, POBA diag 08/31/14 Paroxysmal atrial fibrillation (Chronic) Palpitations (Chronic) Long-term use of high-risk medication (Chronic) Hyperlipemia (Chronic) Hypoxemia (Chronic) Abnormal PFT (Chronic) Hypersomnia (Chronic) NSTEMI (non-ST elevated myocardial infarction) (Chronic) Hypertension (Chronic) Surgical History: angioplasty - w/ stent, cataract, hysterectomy, tonsillectomy - *Family History Maternal Family History: Family History (Last Reviewed 11/20/18 @ 16:42 by Yosi Chairez DO) Mother CAD (coronary artery disease) Myocardial infarction Father Alzheimer disease Brother Heart disease Dementia Hypertension History Items: Diabetes Paternal Family History: Family History (Last Reviewed 11/20/18 @ 16:42 by Yosi Chairez DO) Mother CAD (coronary artery disease) Myocardial infarction Father Alzheimer disease Brother Heart disease Dementia Hypertension History Items: Unknown Sibling Family History: Family History (Last Reviewed 11/20/18 @ 16:42 by Yosi Chairez DO) Mother CAD (coronary artery disease) Myocardial infarction Father Alzheimer disease Brother Heart disease Dementia Hypertension History Items: Heart Disease Lives: Alone - resides in an F Smoking Status: Never smoker Alcohol: None Drugs: None Review of Systems - Review of Systems General: Reports: Fatigue, Weakness. Denies: Fever, Night Sweats Cardiovascular: Reports: Chest Discomfort at Rest, Shortness of Breath. Denies: Chest Discomfort, Orthopnea, PND, Peripheral Edema, Palpitations, Lightheadedness, Dizziness, Near Syncope, Syncope Respiratory: Reports: Shortness of Breath. Denies: Cough, Sputum Production, Hemoptysis Gastrointestinal: Denies: Hematemesis, Hematochezia, Melena Genitourinary: Denies: Dysuria, Hematuria Skin: Denies: Rash Subjectve: This is an 83-year-old white female who appears to be resting comfortably at the moment in no acute distress. Objective: Vital Signs Temp Pulse Resp BP Pulse Ox 97.9 F 88 16 140/56 H 98 11/20/18 17:31 11/20/18 17:31 11/20/18 17:31 11/20/18 17:31 11/20/18 17:31 Oxygen Flow Rate (L/min) 2 Oxygen Delivery Method Nasal Cannula Weight: 190 lb Body Mass Index (BMI) 34.7 General: Awake, Alert, Oriented x 3, Cooperative, No Acute Distress HEENT: Atraumatic, Normocephalic, PERRL, EOMI, Sclera Non Icteric Oral: Moist Mucosa Neck: Supple, Good ROM, No JVD Lungs: Clear to auscultation Cardiovascular: Regular Rhythm, Premature Ectopic Beats, Normal S1, Normal S2 Vascular: No Carotid Bruits Abdomen: Bowel Sounds Present, Soft, Non Tender Extremities: No Cyanosis, No Clubbing, No edema Neurological: No Focal Motor or Sensory Deficit Psych/Mental Status: Appropriate 11/20/18 14:55: WBC 6.9, RBC 4.75, Hgb 14.8, Hct 44.6, MCV 93.9, MCH 31.2, MCHC 33.2, RDW 12.9, RDW Differential 44.3 H, Plt Count 205, MPV 10.4, Immature Gran % (Auto) 0.100, Neut % (Auto) 55.0, Lymph % (Auto) 32.6, Schleicher % (Auto) 9.3, Eos % (Auto) 2.6, Baso % (Auto) 0.4, Absolute Neuts (auto) 3.8, Total Counted Not Reportable 11/20/18 14:55: Sodium 143, Potassium 3.7, Chloride 106, Carbon Dioxide 30.0, Anion Gap 7, BUN 12, Creatinine 0.85, Est GFR (MDRD) Af Amer 82, Est GFR (MDRD) Non-Af 68, BUN/Creatinine Ratio 14.1, Glucose 164 H, Calcium 8.8, Troponin I < 0.015 11/20/18 14:55: APTT 40.8 H 11/20/18 14:55: Magnesium 2.0 11/20/18 14:55: Hemoglobin A1c 6.2 11/20/18 16:05: Urine Color Yellow, Urine Clarity Clear, Urine pH 6.0, Ur Specific [place] 1.020, Urine Protein Negative, Urine Glucose (UA) Normal, Urine Ketones Negative, Urine Occult Blood 50 H, Urine Nitrite Negative, Urine Bilirubin Negative, Urine Urobilinogen Normal, Ur Leukocyte Esterase 500 H, Urine RBC 0-5 SEEN, Urine WBC 10-25 SEEN Rhythm: Sinus rhythm; PACs; PVCs EKG: As noted above ECHO: 08/27/2016: Left ventricle considered normal with an LVEF 65% with mild concentric LVH; mild left atrial enlargement; mild MR; trivial TR/NM Stress Test: 01-18-15: Pharmacologic stress nuclear imaging study: Myocardial perfusion with evidence of minimal mid anterior and mid inferior ischemia with preserved LVEF of 66% Cardiac Cath: ? 15: [place], [place]: Left main with no angiographically significant disease LAD with proximal 80 to 90% luminal irregularity Diagonal branch with ostial 50% luminal irregularity LCx is proximally occluded RCA being dominant with mid 25 to 50% stenosis with the remainder the vessel with diffuse luminal irregularities Right to left collateral flow Left ventricle normal with an LVEF of 58% PCI: 08-27-14: LCx PTCA/MINERVA: 2.75 x 22 mm resolute stent and 2.75 x 8 mm resolute stent 08-31-14: LAD PTCA/MINERVA: 3.5 x [address] Surgery: Holter monitor: 08/02/2014: Sinus rhythm; PACs; PVCs Event monitor: June 2016-July 2016: Sinus rhythm; PACs including bigeminy and trigeminy Quadra [place]ue a pair and a burst of SVT of 4 beats; PVCs; 2 episodes of atrial fibrillation up to 140 bpm CXR: Pulmonary evaluation: No acute cardiopulmonary disease process appreciated: Please see official report Assessment/Plan 1. Fatigue The patient experienced fatigue becoming more prominent today. At the present time it is unclear whether it is related to her underlying cardiac ectopy or appearance of bradycardia versus other cardiovascular related issues based upon her history of CAD and/or change in her ventricular function versus noncardiac issues. She will continue to be monitored. She will have follow-up cardiac enzymes and ECGs. An echocardiogram has been requested to evaluate her left ventricular wall motion and systolic function. It would not be unreasonable to repeat her pharmacologic stress nuclear imaging study, which to the best of her knowledge has not been performed as her PCI procedures, to reassess for any obvious ongoing myocardial ischemia that would warrant repeat invasive evaluation or care. Her beta-madeleine therapy is on temporary hold based on concerns of her bradycardia dysrhythmia. However, depending upon her clinical course and findings she may or may not need further adjustment of her medications and/or if it is felt that her underlying bradycardia is contributing to her symptoms then she may also need to be considered for permanent pacemaker placement. This would allow her to take her medications such as her beta-blockers for her ectopy and other dysrhythmias. 2. Bradycardia She does have findings compatible with bradycardia. Again it is unclear if this is the sole etiology for her fatigue. At the moment her rate and rhythm will be followed. She will continue evaluation care as noted above. 3. Cardiac ectopy She has been documented in the past have evidence of PACs and PVCs and various patterns. She demonstrate this today as well. It is unclear as to whether or not this is truly the etiology for her symptoms. She will continue evaluation care as noted above. 4. Paroxysmal atrial fibrillation She has been found to have paroxysmal atrial fibrillation. She has been on rate control therapy and anticoagulant therapy. Thus far she has not demonstrated recurrent paroxysmal atrial fibrillation. She will be monitored for any obvious rhythm changes. If she requires further invasive evaluation than her anticoagulant therapy will need to be placed on hold. 5. CAD status post PCI She has a history of PCI to the LCx distribution and the LAD distribution. She has felt fatigue which she also demonstrated chest heaviness. Thus this does raise concern as to whether or not her coronary disease can be contributing to her symptoms, rate changes, rhythm changes, etc. She will continue to be monitored. She will continue medical management as deemed appropriate at this time. She will be scheduled for further evaluation as noted above with noninvasive studies. Depending upon the findings she may need repeat invasive evaluation. Unless urgent or emergent that would take place once her anticoagulant therapy has dissipated. 6. Hyperlipidemia She will continue lipid-lowering therapy. 7. Hypertension Her blood pressures will be followed. Her medications can be adjusted as needed taking into consideration her underlying rate and rhythm. Comment: The patient's case was discussed and reviewed with the patient, her family members present, and Dr. Chairez. This note was generated using a voice recognition system and there may be incorrect words, spelling or punctuation that were not noted when reviewing the office note prior to saving.
--- NOTE | 2018-11-20 17:55 | CON.PCM_ITS ---
Problem List (1) Fatigue Status: Acute Qualifiers: Fatigue type: unspecified Qualified Code(s): R53.83 - Other fatigue (2) Symptomatic bradycardia Status: Acute (3) Ectopic cardiac beats Status: Chronic (4) Paroxysmal atrial fibrillation Status: Chronic (5) CAD (coronary artery disease), [place] coronary artery Status: Chronic Qualifiers: [place] vs. transplanted heart: [place] heart (6) Presence of stent in coronary artery Status: Chronic Comment: PCI/MINERVA of CX 08/27/14; PCI/MINERVA f the LAD, POBA diag 08/31/14 (7) Hyperlipemia Status: Chronic Qualifiers: Hyperlipidemia type: pure hypercholesterolemia Qualified Code(s): E78.00 - Pure hypercholesterolemia, unspecified; E78.0 - Pure hypercholesterolemia (8) Hypertension Status: Chronic Qualifiers: Hypertension type: essential hypertension Qualified Code(s): I10 - Essential (primary) hypertension Reason for Consult Date of Consultation: 11/20/18 History of Present Illness: The patient is a 83 year old female with a past medical history of PACs/PVCs, paroxysmal atrial fibrillation, CAD, status post PTCA/stent to the LCx system and PTCA/stent to the LAD system, hyperlipidemia, and hypertension who presents for evaluation of fatigue and concerns of symptomatic bradycardia and underlying cardiac ectopy. She states she has been more fatigued than usual recently. How ever, today she noted following sabianism she became more abruptly fatigued and felt that she had to push to get anything accomplished. She denied any ongoing palpitations. There was no near syncope or syncope. She states she felt somewhat more short of breath and dyspneic. She also felt somewhat of a heaviness on her chest. She was subsequently brought to the emergency department for further evaluation. There she was found on evaluation to have an abnormal cardiac rate/rhythm thought concerning for underlying bradycardia with PACs and PVCs in the pattern of atrial bigeminy/ventricular bigeminy. Her initial troponin I level was negative. Her ECG did not demonstrate other new acute ECG changes. She was then placed in the PCU for further evaluation. A repeat ECG appeared to be without significant change. She was evaluated by internal medicine. Based upon concerns of her symptoms and her bradycardia dysrhythmia her beta-blockers were placed on hold. She has denied ongoing orthopnea or PND or worsening peripheral pitting edema. Again she states there is been no near syncope or syncope. Her main concern is been progressive fatigue and being much more prominent today. [] Past Medical History Allergies/Adverse Reactions: Allergies amoxicillin Allergy (Verified 07/13/18 10:04) Unknown Home Medications: Ambulatory Orders Medication Instructions Recorded Aspirin [Aspirin, Baby] 81 mg PO DAILY 01/17/15 Atorvastatin Calcium [Lipitor] 40 mg PO QHS 01/17/15 Nitroglycerin (INPATIENT USE) 0.4 mg SUBLINGUAL Q5M PRN 01/17/15 [Nitrostat] Cholecalciferol (Vitamin D3) 1,000 unit PO DAILY 10/09/16 [Vitamin D3] Isosorbide Mononitrate [Imdur] 30 mg PO DAILY 10/09/16 Multivitamin [Daily Multiple 1 ea PO DAILY 10/09/16 Vitamin] Quinapril HCl [Accupril] 5 mg PO DAILY 10/09/16 ascorbic acid (vitamin C) 1,000 mg 3 g PO QDAY tab 09/01/17 tablet calcium citrate 250 mg tablet 250 mg PO BID tab 09/01/17 rivaroxaban 15 mg tablet 15 mg PO QDAY #30 tab 08/19/18 metoprolol tartrate 50 mg tablet 50 mg PO BID #60 tab 10/20/18 Docusate Sodium [Stool Softener] 100 mg PO QHS 11/20/18 Past Medical History (Chronic Problems): Chronic Problems (Last Reviewed 11/20/18 @ 16:42 by Yosi Chairez DO) CAD (coronary artery disease), [place] coronary artery (Chronic) Ectopic cardiac beats (Chronic) Presence of stent in coronary artery (Chronic) PCI/MINERVA of CX 08/27/14; PCI/MINERVA f the LAD, POBA diag 08/31/14 Atherosclerotic heart disease of [place] coronary artery without angina pectoris (Chronic) PCI/MINERVA of CX 08/27/14; PCI/MINERVA f the LAD, POBA diag 08/31/14 Paroxysmal atrial fibrillation (Chronic) Palpitations (Chronic) Long-term use of high-risk medication (Chronic) Hyperlipemia (Chronic) Hypoxemia (Chronic) Abnormal PFT (Chronic) Hypersomnia (Chronic) NSTEMI (non-ST elevated myocardial infarction) (Chronic) Hypertension (Chronic) Surgical History: angioplasty - w/ stent, cataract, hysterectomy, tonsillectomy - *Family History Maternal Family History: Family History (Last Reviewed 11/20/18 @ 16:42 by Yosi Chairez DO) Mother CAD (coronary artery disease) Myocardial infarction Father Alzheimer disease Brother Heart disease Dementia Hypertension History Items: Diabetes Paternal Family History: Family History (Last Reviewed 11/20/18 @ 16:42 by Yosi Chairez DO) Mother CAD (coronary artery disease) Myocardial infarction Father Alzheimer disease Brother Heart disease Dementia Hypertension History Items: Unknown Sibling Family History: Family History (Last Reviewed 11/20/18 @ 16:42 by Yosi Chairez DO) Mother CAD (coronary artery disease) Myocardial infarction Father Alzheimer disease Brother Heart disease Dementia Hypertension History Items: Heart Disease Lives: Alone - resides in an F Smoking Status: Never smoker Alcohol: None Drugs: None Review of Systems - Review of Systems General: Reports: Fatigue, Weakness. Denies: Fever, Night Sweats Cardiovascular: Reports: Chest Discomfort at Rest, Shortness of Breath. Denies: Chest Discomfort, Orthopnea, PND, Peripheral Edema, Palpitations, Lightheadedness, Dizziness, Near Syncope, Syncope Respiratory: Reports: Shortness of Breath. Denies: Cough, Sputum Production, Hemoptysis Gastrointestinal: Denies: Hematemesis, Hematochezia, Melena Genitourinary: Denies: Dysuria, Hematuria Skin: Denies: Rash Subjectve: This is an 83-year-old white female who appears to be resting comfortably at the moment in no acute distress. Objective: Vital Signs Temp Pulse Resp BP Pulse Ox 97.9 F 88 16 140/56 H 98 11/20/18 17:31 11/20/18 17:31 11/20/18 17:31 11/20/18 17:31 11/20/18 17:31 Oxygen Flow Rate (L/min) 2 Oxygen Delivery Method Nasal Cannula Weight: 190 lb Body Mass Index (BMI) 34.7 General: Awake, Alert, Oriented x 3, Cooperative, No Acute Distress HEENT: Atraumatic, Normocephalic, PERRL, EOMI, Sclera Non Icteric Oral: Moist Mucosa Neck: Supple, Good ROM, No JVD Lungs: Clear to auscultation Cardiovascular: Regular Rhythm, Premature Ectopic Beats, Normal S1, Normal S2 Vascular: No Carotid Bruits Abdomen: Bowel Sounds Present, Soft, Non Tender Extremities: No Cyanosis, No Clubbing, No edema Neurological: No Focal Motor or Sensory Deficit Psych/Mental Status: Appropriate 11/20/18 14:55: WBC 6.9, RBC 4.75, Hgb 14.8, Hct 44.6, MCV 93.9, MCH 31.2, MCHC 33.2, RDW 12.9, RDW Differential 44.3 H, Plt Count 205, MPV 10.4, Immature Gran % (Auto) 0.100, Neut % (Auto) 55.0, Lymph % (Auto) 32.6, [place] % (Auto) 9.3, Eos % (Auto) 2.6, Baso % (Auto) 0.4, Absolute Neuts (auto) 3.8, Total Counted Not Reportable 11/20/18 14:55: Sodium 143, Potassium 3.7, Chloride 106, Carbon Dioxide 30.0, Anion Gap 7, BUN 12, Creatinine 0.85, Est GFR (MDRD) Af Amer 82, Est GFR (MDRD) Non-Af 68, BUN/Creatinine Ratio 14.1, Glucose 164 H, Calcium 8.8, Troponin I < 0.015 11/20/18 14:55: APTT 40.8 H 11/20/18 14:55: Magnesium 2.0 11/20/18 14:55: Hemoglobin A1c 6.2 11/20/18 16:05: Urine Color Yellow, Urine Clarity Clear, Urine pH 6.0, Ur Specific [place] 1.020, Urine Protein Negative, Urine Glucose (UA) Normal, Urine Ketones Negative, Urine Occult Blood 50 H, Urine Nitrite Negative, Urine Bilirubin Negative, Urine Urobilinogen Normal, Ur Leukocyte Esterase 500 H, Urine RBC 0-5 SEEN, Urine WBC 10-25 SEEN Rhythm: Sinus rhythm; PACs; PVCs EKG: As noted above ECHO: 08/27/2016: Left ventricle considered normal with an LVEF 65% with mild concentric LVH; mild left atrial enlargement; mild MR; trivial TR/MT Stress Test: 01-18-15: Pharmacologic stress nuclear imaging study: Myocardial perfusion with evidence of minimal mid anterior and mid inferior ischemia with preserved LVEF of 66% Cardiac Cath: ? 15: [place], [place]: Left main with no angiographically significant disease LAD with proximal 80 to 90% luminal irregularity Diagonal branch with ostial 50% luminal irregularity LCx is proximally occluded RCA being dominant with mid 25 to 50% stenosis with the remainder the vessel with diffuse luminal irregularities Right to left collateral flow Left ventricle normal with an LVEF of 58% PCI: 08-27-14: LCx PTCA/MINERVA: 2.75 x 22 mm resolute stent and 2.75 x 8 mm resolute stent 08-31-14: LAD PTCA/MINERVA: 3.5 x [address] Surgery: Holter monitor: 08/02/2014: Sinus rhythm; PACs; PVCs Event monitor: June 2016-July 2016: Sinus rhythm; PACs including bigeminy and trigeminy Quadra [place]ue a pair and a burst of SVT of 4 beats; PVCs; 2 episodes of atrial fibrillation up to 140 bpm CXR: Pulmonary evaluation: No acute cardiopulmonary disease process appreciated: Please see official report Assessment/Plan 1. Fatigue The patient experienced fatigue becoming more prominent today. At the present time it is unclear whether it is related to her underlying cardiac ectopy or appearance of bradycardia versus other cardiovascular related issues based upon her history of CAD and/or change in her ventricular function versus noncardiac issues. She will continue to be monitored. She will have follow-up cardiac enzymes and ECGs. An echocardiogram has been requested to evaluate her left ventricular wall motion and systolic function. It would not be unreasonable to repeat her pharmacologic stress nuclear imaging study, which to the best of her knowledge has not been performed as her PCI procedures, to reassess for any obvious ongoing myocardial ischemia that would warrant repeat invasive evaluation or care. Her beta-madeleine therapy is on temporary hold based on concerns of her bradyca rdia dysrhythmia. However, depending upon her clinical course and findings she may or may not need further adjustment of her medications and/or if it is felt that her underlying bradycardia is contributing to her symptoms then she may also need to be considered for permanent pacemaker placement. This would allow her to take her medications such as her beta-blockers for her ectopy and other dysrhythmias. 2. Bradycardia She does have findings compatible with bradycardia. Again it is unclear if this is the sole etiology for her fatigue. At the moment her rate and rhythm will be followed. She will continue evaluation care as noted above. 3. Cardiac ectopy She has been documented in the past have evidence of PACs and PVCs and various patterns. She demonstrate this today as well. It is unclear as to whether or not this is truly the etiology for her symptoms. She will continue evaluation care as noted above. 4. Paroxysmal atrial fibrillation She has been found to have paroxysmal atrial fibrillation. She has been on rate control therapy and anticoagulant therapy. Thus far she has not demonstrated recurrent paroxysmal atrial fibrillation. She will be monitored for any obvious rhythm changes. If she requires further invasive evaluation than her anticoagulant therapy will need to be placed on hold. 5. CAD status post PCI She has a history of PCI to the LCx distribution and the LAD distribution. She has felt fatigue which she also demonstrated chest heaviness. Thus this does raise concern as to whether or not her coronary disease can be contributing to her symptoms, rate changes, rhythm changes, etc. She will continue to be monitored. She will continue medical management as deemed appropriate at this time. She will be scheduled for further evaluation as noted above with noninvasive studies. Depending upon the findings she may need repeat invasive evaluation. Unless urgent or emergent that would take place once her anticoagulant therapy has dissipated. 6. Hyperlipidemia She will continue lipid-lowering therapy. 7. Hypertension Her blood pressures will be followed. Her medications can be adjusted as needed taking into consideration her underlying rate and rhythm. Comment: The patient's case was discussed and reviewed with the patient, her family members present, and Dr. Chairez. This note was generated using a voice recognition system and there may be incorrect words, spelling or punctuation that were not noted when reviewing the office note prior to saving.
[2018-11-20] MEDS: Acetaminophen 325 MG Tablet 650 MG PO (18:23)
[2018-11-20 18:36] LABS: Bedside Glucose 86 mg/dL (70-110)
--- NOTE | 2018-11-20 19:45 | EKG12_ITS ---
Test Reason : CP ADMISSION Blood Pressure : / mmHG Vent. Rate : 088 BPM Atrial Rate : 088 BPM P-R Int : 176 ms QRS Dur : 086 ms QT Int : 364 ms P-R-T Axes : 057 -13 064 degrees QTc Int : 440 ms Sinus rhythm with frequent Premature ventricular complexes in a pattern of bigeminy Otherwise normal ECG When compared with ECG of 17-JAN-2015 15:51, Premature ventricular complexes are now Present Vent. rate has increased BY 30 BPM Confirmed by EDGAR RUTH, LALY ([id number]), editor news JASON REYES ([id number]) on 11/22/2018 11:18:09 AM Referred By: LUCRECIA Confirmed By:LALY HERNÁNDEZ MD
[2018-11-20] MEDS: Docusate Sodium 100 MG Capsule PO (22:31)
[2018-11-20] MEDS: Atorvastatin Calcium 40 MG Tablet PO (22:31)
[2018-11-20 22:46] LABS: Bedside Glucose 125 mg/dL (70-110)
[2018-11-21] VITALS (8 sets, daily range): BP systolic 140–157; BP diastolic 50–84; PULSE 66–101; RESP 16; TEMP 36.4–36.6; O2SAT 94–97
[2018-11-21] MEDS: Aspirin 81 MG TAB.CHEW PO (05:15)
[2018-11-21] MEDS: Lisinopril 5 MG Tablet PO (05:15)
[2018-11-21 05:44] LABS: Hematocrit 42.1 % (37-47); Hemoglobin 13.9 g/dl (12.0-15.0); Mean Corpuscular Hgb 30.9 pg (27.0-32.0); Mean Corpuscular Volume 93.6 fL (81-99); Mean Platelet Vol. 10.1 fl (6.2-12.0); Platelet Count 178 K/mm3 (150-450); RBC Distribution Width CV 12.9 % (11.6-14.6); RBC Distribution Width SD 43.1 fl (35.1-43.9)
--- NOTE | 2018-11-21 05:55 | EKG12_ITS ---
Test Reason : A-FIB Blood Pressure : / mmHG Vent. Rate : 092 BPM Atrial Rate : 288 BPM P-R Int : 000 ms QRS Dur : 084 ms QT Int : 346 ms P-R-T Axes : 000 -23 060 degrees QTc Int : 427 ms Atrial fibrillation Abnormal ECG When compared with ECG of 20-NOV-2018 17:29, MANUAL COMPARISON REQUIRED, DATA IS UNCONFIRMED Confirmed by EDGAR RUTH, LALY ([id number]), electronic news gathering editor JASON REYES ([id number]) on 11/22/2018 11:17:47 AM Referred By: LUCRECIA Confirmed By:LALY HERNÁNDEZ MD
[2018-11-21 05:59] LABS: Partial Thromboplast Time 35.4 Seconds (24.1-36.2)
[2018-11-21 06:06] LABS: Anion Gap 6 (5-15); BUN 10 mg/dL (7-18); BUN/Creat Ratio 17.2 RATIO (10-20); Calcium,Total 8.4 mg/dL (8.5-10.1); Chloride 111 mmol/L (98-107); Creatinine, Serum 0.58 mg/dL (0.55-1.02); EST Glomerular Filtration Rate 105 mL/min (>60); Est Glom Filt Rate - Afr Amer 127 mL/min (>60); Estimated Creatinine Clearance 33.71 ml/min; Glucose 103 mg/dL (74-106); Potassium 4.2 mmol/L (3.5-5.1); Sodium Level 144 mmol/L (136-145); Thyroid Stim Hormone (TSH) 4.84 uIU/mL (0.358-3.74)
[2018-11-21 06:09] LABS: Scan Indicated on CBC? Y/N NO
[2018-11-21 06:13] LABS: International Normalized Ratio 1.4; Prothrombin Time (Protime)PT. 16.5 SECONDS (11.7-14.9)
[2018-11-21 06:50] LABS: Bedside Glucose 112 mg/dL (70-110)
[2018-11-21] MEDS: Acetaminophen 325 MG Tablet 650 MG PO (09:27)
--- NOTE | 2018-11-21 11:14 | PN_ITS ---
Patient Problems: Active and Suspected Problems (Last Reviewed 11/20/18 @ 16:42 by Yosi Chairez DO) Symptomatic bradycardia (Acute) Ventricular bigeminy (Acute) Chest pain (Acute) Fatigue (Acute) Chest pain (Acute) Subjective: Patient is an 83-year-old lady admitted with chest pain and generalized weakness EKG demonstrated bigeminy's Objective: GENERAL: cooperative HEENT: Atraumatic; EYES; Anicteric, Normal Conjunctiva NECK; supple, normal thyroid, RESPIRATORY: Diminished to auscultation bilaterally, CARDIOVASCULAR: Regular S1 S2, GI: soft, non-tender, normoactive bowel sounds, : No Renal angle tenderness; EXTREMITIES: No edema, no clubbing, MUSCULOSKELETAL: No Joint Tenderness; NEURO: Awake; no lateralizing signs. SKIN: No Rash PSYCH; Normal affect Vitals/I&O's: Vital Signs Temp Pulse Resp BP Pulse Ox 97.9 F 85 16 152/66 H 97 11/21/18 09:14 11/21/18 09:14 11/21/18 09:14 11/21/18 09:14 11/21/18 09:14 Oxygen Flow Rate (L/min) 2 Oxygen Delivery Method Nasal Cannula Weight: 86.183 kg Body Mass Index (BMI) 34.7 Intake and Output for Last 24 Hours 11/19/18 11/20/18 11/21/18 23:59 23:59 23:59 Intake Total 480 / 480 Balance 480 / 480 Microbiology Past 72 Hours 11/20/18 16:05 Urine, Clean Catch Urine Culture - Final Mixed Gram Positive Organisms Laboratory Results 11/20/18 14:55: WBC 6.9, RBC 4.75, Hgb 14.8, Hct 44.6, MCV 93.9, MCH 31.2, MCHC 33.2, RDW 12.9, RDW Differential 44.3 H, Plt Count 205, MPV 10.4, Immature Gran % (Auto) 0.100, Neut % (Auto) 55.0, Lymph % (Auto) 32.6, [place] % (Auto) 9.3, Eos % (Auto) 2.6, Baso % (Auto) 0.4, Absolute Neuts (auto) 3.8, Absolute Lymphs (auto) 2.25, Total Counted Not Reportable 11/20/18 14:55: Sodium 143, Potassium 3.7, Chloride 106, Carbon Dioxide 30.0, Anion Gap 7, BUN 12, Creatinine 0.85, Estim Creat Clear Calc 41.48, Est GFR (MDRD) Af Amer 82, Est GFR (MDRD) Non-Af 68, BUN/Creatinine Ratio 14.1, Glucose 164 H, Calcium 8.8, Troponin I < 0.015 11/20/18 14:55: APTT 40.8 H 11/20/18 14:55: Magnesium 2.0 11/20/18 14:55: Hemoglobin A1c 6.2 11/20/18 16:05: Urine Color Yellow, Urine Clarity Clear, Urine pH 6.0, Ur Specific [place] 1.020, Urine Protein Negative, Urine Glucose (UA) Normal, Urine Ketones Negative, Urine Occult Blood 50 H, Urine Nitrite Negative, Urine Bilirubin Negative, Urine Urobilinogen Normal, Ur Leukocyte Esterase 500 H, Urine RBC 0-5 SEEN, Urine WBC 10-25 SEEN, Ur Squamous Epith Cells 5-10 SEEN, Urine Bacteria 0 SEEN, Urine Mucus 0 SEEN 11/20/18 18:07: Troponin I < 0.015 11/20/18 18:19: POC Glucose 86 11/20/18 20:45: Troponin I < 0.015 11/20/18 22:39: POC Glucose 125 H 11/21/18 05:25: Sodium 144, Potassium 4.2, Chloride 111 H, Carbon Dioxide 27.0, Anion Gap 6, BUN 10, Creatinine 0.58, Estim Creat Clear Calc 33.71, Est GFR (MDRD) Af Amer 127, Est GFR (MDRD) Non-Af 105, BUN/Creatinine Ratio 17.2, G lucose 103, Calcium 8.4 L, TSH 4.84 H 11/21/18 05:25: WBC 6.0, RBC 4.50, Hgb 13.9, Hct 42.1, MCV 93.6, MCH 30.9, MCHC 33.0, RDW 12.9, RDW Differential 43.1, Plt Count 178, MPV 10.1 11/21/18 05:25: PT 16.5 H, INR 1.4, APTT 35.4 11/21/18 06:43: POC Glucose 112 H Current Medications Acetaminophen (Tylenol) 650 mg PO Q6H PRN PRN PRN Reason: Mild pain 1-3/Temp > 100.7 F Last Admin: 11/21/18 09:27 Dose: 650 mg [facility]) [facility] Last Admin: 11/21/18 05:15 Dose: 81 mg Atorvastatin Calcium (Lipitor) 40 mg PO QHS [facility] Last Admin: 11/20/18 22:31 Dose: 40 mg [facility]cium [facility]ate [facility]) [facility] Cholecalciferol (Vitamin D) 1,000 unit PO DAILY [facility] Dextrose (D50w Syringe) 0 gm IV X1 PRN; Protocol PRN Reason: Hypoglycemia Docusate Sodium (Colace) 100 mg PO QHS [facility] Last Admin: 11/20/18 22:31 Dose: 100 mg Glucagon () 1 mg IM .X1 PRN PRN Reason: Hypoglycemia Insulin Human Lispro (Humalog Kwikpen (Bkc)) 0 unit SQ TIDAC [facility]; Protocol Last Admin: 11/21/18 06:44 Dose: Not Given Isosorbide Mononitrate (Imdur) 30 mg PO DAILY [facility] Lisinopril (Zestril) 5 mg PO DAILY [facility] Last Admin: 11/21/18 05:15 Dose: 5 mg Multivitamins (Multivitamin) 1 tablet PO DAILY@0800 [facility] Nitroglycerin (Nitrostat) 0.4 mg SUBLINGUAL Q5M PRN PRN Reason: Chest Pain Ondansetron HCl (Zofran) 4 mg IV Q8H PRN PRN PRN Reason: NAUSEA/VOMITING Rivaroxaban (Xarelto) 15 mg PO DAILY@1700 [facility] Sodium Chloride () 5 - 15 ml IV UD PRN PRN Reason: SALINE FLUSH Medical Necessity - Tobacco Use Smoking Status: Never smoker Assessment/Plan All Active Problems (Last Reviewed 11/20/18 @ 16:42 by Yosi Chairez DO) Symptomatic bradycardia (Acute) Ventricular bigeminy (Acute) Chest pain (Acute) Fatigue (Acute) Myocardial infarct (Resolved) Chest pain (Acute) Patient is an 83-year-old lady admitted with chest pain and generalized weakness EKG demonstrated bigeminy's 1. Chest pain admitted to monitored bed [place] has been ruled out with serial c ardiac enzymes. In view of patient bigeminy's as well as previous cardiac history consultation was placed to cardiology patient seen by Dr. Beth who recommended patient undergo subsequent evaluation with a nuclear stress testing 2. Paroxysmal atrial fibrillation 3. Coronary artery disease with previous stent placement to circumflex and LAD 4. Hypertension-blood pressure controlled, home medications continued with dose adjustment as needed 5. Dyslipidemia-patient is on statin therapy, continued at home dose Code Visit OBSV E&M: [id number] Subsequent observation care L3
--- NOTE | 2018-11-21 12:09 | STRESSREP ---
Stress Test Report Pharmacologic myocardial perfusion stress test. 83-year-old lady with a history of palpitations. Medications: Aspirin, Lipitor, Inderal, Zestril. Stress protocol: Resting EKG demonstrates atrial fibrillation with a rate of 94 bpm normal intervals are noted resting blood pressure is 138/82 mmHg. 0.4 mg of regadenoson was infused per usual protocol followed by rapid intravenous saline flush injection continuous EKG monitoring was performed. The maximum heart rate attained was 142 bpm which was 103% of maximum predicted heart rate the maximum workload was 1 metabolic equivalent. At rest there were no ST or T wave changes noted suggest abnormal flow reserve at peak infusion nonspecific ST-T wave changes were noted with no meet the criteria for ischemia. The resting blood pressures 138/82 with a final blood pressure 118/62. Myocardial perfusion protocol. 12.0 mCi of technetium 99m sestamibi was injected at rest. 0.4 mg of regadenoson was infused per usual protocol peak infusion 34.5 mCi of technetium 99m sestamibi was injected stress and rest images were reconstructed in comparing the short axis vertical long horizontal long axis. Gated images were also obtained Perfusion SPECT analysis: Review of the stress images demonstrate normal uptake of tracer noted in all areas myocardium the resting images similarly demonstrate normal uptake of tracer noted in all areas of the myocardium. No areas of reversibility are noted suggest ischemia no previous infarct is noted. Gated SPECT analysis: The gated ejection fraction is noted to be 66%. Conclusion: Normal pharmacologic myocardial perfusion stress test. Atrial fibrillation noted. Preserved ejection fraction.
--- NOTE | 2018-11-21 12:16 | PN.CARD_ITS ---
Subjectve: Patient seen and evaluated Objective: Vital Signs Temp Pulse Resp BP Pulse Ox 97.9 F 85 16 152/66 H 97 11/21/18 09:14 11/21/18 09:14 11/21/18 09:14 11/21/18 09:14 11/21/18 09:14 Oxygen Flow Rate (L/min) 2.5 Oxygen Delivery Method Nasal Cannula Weight: 190 lb Body Mass Index (BMI) 34.7 Intake and Output for Last 24 Hours 11/19/18 11/20/18 11/21/18 23:59 23:59 23:59 Intake Total 480 / 480 Balance 480 / 480 General: Awake, Alert, Oriented x 3 HEENT: PERRL, EOMI, Sclera Non Icteric Neck: Supple, Good ROM, No Lymph Node Enlargement Lungs: Clear to auscultation Cardiovascular: Irregular Rhythm, Normal S1, Normal S2, No Murmurs, No Rubs, No Gallops Vascular: No Carotid Bruits, Normal Femoral Pulses, Normal Radial Pulses, Normal Dorsalis Pedal Pulse, Normal Posterior Tibial Pulses Abdomen: Bowel Sounds Present, Soft, Non Tender, No HSM, No Organomegaly Extremities: No Cyanosis, No Clubbing, No edema Neurological: No Focal Motor or Sensory Deficit 11/20/18 14:55: WBC 6.9, RBC 4.75, Hgb 14.8, Hct 44.6, MCV 93.9, MCH 31.2, MCHC 33.2, RDW 12.9, RDW Differential 44.3 H, Plt Count 205, MPV 10.4, Immature Gran % (Auto) 0.100, Neut % (Auto) 55.0, Lymph % (Auto) 32.6, [place] % (Auto) 9.3, Eos % (Auto) 2.6, Baso % (Auto) 0.4, Absolute Neuts (auto) 3.8, Total Counted Not Reportable 11/20/18 14:55: Sodium 143, Potassium 3.7, Chloride 106, Carbon Dioxide 30.0, A nion Gap 7, BUN 12, Creatinine 0.85, Est GFR (MDRD) Af Amer 82, Est GFR (MDRD) Non-Af 68, BUN/Creatinine Ratio 14.1, Glucose 164 H, Calcium 8.8, Troponin I < 0.015 11/20/18 14:55: APTT 40.8 H 05/19/19 14:55: Magnesium 2.0 11/20/18 14:55: Hemoglobin A1c 6.2 11/20/18 16:05: Urine Color Yellow, Urine Clarity Clear, Urine pH 6.0, Ur Specific [place] 1.020, Urine Protein Negative, Urine Glucose (UA) Normal, Urine Ketones Negative, Urine Occult Blood 50 H, Urine Nitrite Negative, Urine Bilirubin Negative, Urine Urobilinogen Normal, Ur Leukocyte Esterase 500 H, Urine RBC 0-5 SEEN, Urine WBC 10-25 SEEN 11/20/18 18:07: Troponin I < 0.015 11/20/18 20:45: Troponin I < 0.015 11/21/18 05:25: Sodium 144, Potassium 4.2, Chloride 111 H, Carbon Dioxide 27.0, Anion Gap 6, BUN 10, Creatinine 0.58, Est GFR (MDRD) Af Amer 127, Est GFR (MDRD) Non-Af 105, BUN/Creatinine Ratio 17.2, Glucose 103, Calcium 8.4 L 11/21/18 05:25: WBC 6.0, RBC 4.50, Hgb 13.9, Hct 42.1, MCV 93.6, MCH 30.9, MCHC 33.0, RDW 12.9, RDW Differential 43.1, Plt Count 178, MPV 10.1 11/21/18 05:25: PT 16.5 H, INR 1.4, APTT 35.4 Rhythm: EKG: ECHO: Stress Test: Cardiac Cath: PCI: CT Surgery: Holter monitor: EPS: PPM: CXR: Chest CT Scan: Medical Necessity - Tobacco Use Smoking Status: Never smoker Assessment/Plan 1. Fatigue At the present time it is unclear whether it is related to her underlying cardiac ectopy or appearance of bradycardia versus other cardiovascular related issues based upon her history of CAD and/or change in her ventricular function versus noncardiac issues. 2. Bradycardia She does have findings compatible with bradycardia. Again it is unclear if this is the sole etiology for her fatigue. At the moment her rate and rhythm will be followed. She will continue evaluation care as noted above. 3. Cardiac ectopy She has been documented in the past have evidence of PACs and PVCs and various patterns. She demonstrate this today as well. It is unclear as to whether or not this is truly the etiology for her symptoms. She will continue evaluation care as noted above. 4. Paroxysmal atrial fibrillation She has been found to have paroxysmal atrial fibrillation. She has been on rate control therapy and anticoagulant therapy. She was started on beta-madeleine therapy with metoprolol 25 mg twice a day. 5. CAD status post PCI She has a history of PCI to the LCx distribution and the LAD distribution. Her stress test this morning did not demonstrate any evidence of ischemia and will continue to manage him medically. 6. Hyperlipidemia She will continue lipid-lowering therapy. 7. Hypertension Her blood pressures will be followed. Her medications can be adjusted as needed taking into consideration her underlying rate and rhythm. At this particular time the patient appears to be fairly stable to be managed as an outpatient.
--- NOTE | 2018-11-21 13:02 | DS.PCM_ITS ---
Discharge Date and Diagnosis - Problem List Patient Problems: Active and Suspected Problems (Last Reviewed 11/20/18 @ 16:42 by Yosi Chairez DO) Symptomatic bradycardia (Acute) Ventricular bigeminy (Acute) Chest pain (Acute) Fatigue (Acute) Chest pain (Acute) Date of Admission: 11/20/18 Date of Discharge: 11/21/18 - Primary Discharge Diagnosis Active and Suspected Problems (Last Reviewed 11/20/18 @ 16:42 by Yosi Chairez DO) Symptomatic bradycardia (Acute) Ventricular bigeminy (Acute) Chest pain (Acute) Fatigue (Acute) Chest pain (Acute) - Secondary Discharge Diagnosis Chronic Problems (Last Reviewed 11/20/18 @ 16:42 by Yosi Chairez DO) CAD (coronary artery disease), [place] coronary artery (Chronic) Ectopic cardiac beats (Chronic) Presence of stent in coronary artery (Chronic) PCI/MINERVA of CX 08/27/14; PCI/MINERVA f the LAD, POBA diag 08/31/14 Atherosclerotic heart disease of [place] coronary artery without angina pectoris (Chronic) PCI/MINERVA of CX 08/27/14; PCI/MINERVA f the LAD, POBA diag 08/31/14 Paroxysmal atrial fibrillation (Chronic) Palpitations (Chronic) Long-term use of high-risk medication (Chronic) Hyperlipemia (Chronic) Hypoxemia (Chronic) Abnormal PFT (Chronic) Hypersomnia (Chronic) NSTEMI (non-ST elevated myocardial infarction) (Chronic) Hypertension (Chronic) Hospital Course and Treatment Imaging Results: 11/21/18 05:55 Nuclear Stress Test - Chemical [NM] AM (NON MEDS) Summary of Care Provided: Patient is an 83-year-old lady admitted with chest pain and generalized weakness EKG demonstrated bigeminy's 1. Chest pain admitted to monitored bed [place] has been ruled out with serial cardiac enzymes. In view of patient bigeminy's as well as previous cardiac history consultation was placed to cardiology patient seen by Dr. Beth who recommended patient undergo subsequent evaluation with a nuclear stress testing. Stress test was performed on 11/21/2018 which was negative for stress-induced ischemia 2. Paroxysmal atrial fibrillation patient is on systemic anticoagulation with Xarelto. Was on metoprolol 50 mg twice daily dose was adjusted to 25 mg p.o. twice daily 3. Coronary artery disease with previous stent placement to circumflex and LAD 4. Hypertension-blood pressure controlled, home medications continued with dose adjustment as needed 5. Dyslipidemia-patient is on statin therapy, continued at home dose Patient Problems: Active and Suspected Problems (Last Reviewed 11/20/18 @ 16:42 by Yosi Chairez DO) Symptomatic bradycardia (Acute) Ventricular bigeminy (Acute) Chest pain (Acute) Fatigue (Acute) Chest pain (Acute) - Physical Exam General: Alert HEENT: Atraumatic Lungs: Diminished Cardiovascular: Regular rate, Regular Rhythm Psych/Mental Status: Normal Affect Vital Signs Temp Pulse Resp BP Pulse Ox 97.9 F 101 H 16 152/66 H 97 11/21/18 09:14 11/21/18 12:23 11/21/18 09:14 11/21/18 09:14 11/21/18 09:14 Oxygen Flow Rate (L/min) 2.5 Oxygen Delivery Method Nasal Cannula Weight: 86.183 kg Body Mass Index (BMI) 34.7 Intake and Output for Last 24 Hours 11/19/18 11/20/18 11/21/18 23:59 23:59 23:59 Intake Total 480 / 480 Balance 480 / 480 Microbiology Past 72 Hours 11/20/18 16:05 Urine Culture - Final Urine, Clean Catch Mixed Gram Positive Organisms Laboratory Tests Past 24 Hrs 11/20/18 11/20/18 11/20/18 14:55 14:55 14:55 WBC 6.9 RBC 4.75 Hgb 14.8 Hct 44.6 MCV 93.9 MCH 31.2 MCHC 33.2 RDW 12.9 RDW Differential 44.3 H Plt Count 205 MPV 10.4 Immature Gran % (Auto) 0.100 Neut % (Auto) 55.0 Lymph % (Auto) 32.6 [place] % (Auto) 9.3 Eos % (Auto) 2.6 Baso % (Auto) 0.4 Absolute Neuts (auto) 3.8 Absolute Lymphs (auto) 2.25 Total Counted Not Reportable PT INR APTT 40.8 H Sodium 143 Potassium 3.7 Chloride 106 Carbon Dioxide 30.0 Anion Gap 7 BUN 12 Creatinine 0.85 Estim Creat Clear Calc 41.48 Est GFR (MDRD) Af Amer 82 Est GFR (MDRD) Non-Af 68 BUN/Creatinine Ratio 14.1 Glucose 164 H Hemoglobin A1c Calcium 8.8 Magnesium Troponin I < 0.015 TSH Urine Color Urine Clarity Urine pH Ur Specific [place] Urine Protein Urine Glucose (UA) Urine Ketones Urine Occult Blood Urine Nitrite Urine Bilirubin Urine Urobilinogen Ur Leukocyte Esterase Urine RBC Urine WBC Ur Squamous Epith Cells Urine Bacteria Urine Mucus 11/20/18 11/20/18 11/20/18 14:55 14:55 16:05 WBC RBC Hgb Hct MCV MCH MCHC RDW RDW Differential Plt Count MPV Immature Gran % (Auto) Neut % (Auto) Lymph % (Auto) [place] % (Auto) Eos % (Auto) Baso % (Auto) Absolute Neuts (auto) Absolute Lymphs (auto) Total Counted PT INR APTT Sodium Potassium Chloride Carbon Dioxide Anion Gap BUN Creatinine Estim Creat Clear Calc Est GFR (MDRD) Af Amer Est GFR (MDRD) Non-Af BUN/Creatinine Ratio Glucose Hemoglobin A1c 6.2 Calcium Magnesium 2.0 Troponin I TSH Urine Color Yellow Urine Clarity Clear Urine pH 6.0 Ur Specific [place] 1.020 Urine Protein Negative Urine Glucose (UA) Normal Urine Ketones Negative Urine Occult Blood 50 H Urine Nitrite Negative Urine Bilirubin Negative Urine Urobilinogen Normal Ur Leukocyte Esterase 500 H Urine RBC 0-5 SEEN Urine WBC 10-25 SEEN Ur Squamous Epith Cells 5-10 SEEN Urine Bacteria 0 SEEN Urine Mucus 0 SEEN 11/20/18 11/20/18 11/21/18 18:07 20:45 05:25 WBC RBC Hgb Hct MCV MCH MCHC RDW RDW Differential Plt Count MPV Immature Gran % (Auto) Neut % (Auto) Lymph % (Auto) [place] % (Auto) Eos % (Auto) Baso % (Auto) Absolute Neuts (auto) Absolute Lymphs (auto) Total Counted PT INR APTT Sodium 144 Potassium 4.2 Chloride 111 H Carbon Dioxide 27.0 Anion Gap 6 BUN 10 Creatinine 0.58 Estim Creat Clear Calc 33.71 Est GFR (MDRD) Af Amer 127 Est GFR (MDRD) Non-Af 105 BUN/Creatinine Ratio 17.2 Glucose 103 Hemoglobin A1c Calcium 8.4 L Magnesium Troponin I < 0.015 < 0.015 TSH 4.84 H Urine Color Urine Clarity Urine pH Ur Specific [place] Urine Protein Urine Glucose (UA) Urine Ketones Urine Occult Blood Urine Nitrite Urine Bilirubin Urine Urobilinogen Ur Leukocyte Esterase Urine RBC Urine WBC Ur Squamous Epith Cells Urine Bacteria Urine Mucus 11/21/18 11/21/18 05:25 05:25 WBC 6.0 RBC 4.50 Hgb 13.9 Hct 42.1 MCV 93.6 MCH 30.9 MCHC 33.0 RDW 12.9 RDW Differential 43.1 Plt Count 178 MPV 10.1 Immature Gran % (Auto) Neut % (Auto) Lymph % (Auto) [place] % (Auto) Eos % (Auto) Baso % (Auto) Absolute Neuts (auto) Absolute Lymphs (auto) Total Counted PT 16.5 H INR 1.4 APTT 35.4 Sodium Potassium Chloride Carbon Dioxide Anion Gap BUN Creatinine Estim Creat Clear Calc Est GFR (MDRD) Af Amer Est GFR (MDRD) Non-Af BUN/Creatinine Ratio Glucose Hemoglobin A1c Calcium Magnesium Troponin I TSH Urine Color Urine Clarity Urine pH Ur Specific [place] Urine Protein Urine Glucose (UA) Urine Ketones Urine Occult Blood Urine Nitrite Urine Bilirubin Urine Urobilinogen Ur Leukocyte Esterase Urine RBC Urine WBC Ur Squamous Epith Cells Urine Bacteria Urine Mucus POC Glucose 11/21/18 11/20/18 11/20/18 06:43 22:39 18:19 POC Glucose 112 H 125 H 86 Home Medications: Medications to take at Discharge Aspirin [Aspirin, Baby] 81 mg PO DAILY 01/17/15 Atorvastatin Calcium [Lipitor] 40 mg PO QHS 01/17/15 Nitroglycerin (INPATIENT USE) [Nitrostat] 0.4 mg SUBLINGUAL Q5M PRN 01/17/15 Cholecalciferol (Vitamin D3) [Vitamin D3] 1,000 unit PO DAILY 10/09/16 Isosorbide Mononitrate [Imdur] 30 mg PO DAILY 10/09/16 Multivitamin [Daily Multiple Vitamin] 1 ea PO DAILY 10/09/16 Quinapril HCl [Accupril] 5 mg PO DAILY 10/09/16 ascorbic acid (vitamin C) 1,000 mg tablet 3 g PO QDAY tab 09/01/17 calcium citrate 250 mg tablet 250 mg PO BID tab 09/01/17 rivaroxaban 15 mg tablet 15 mg PO QDAY #30 tab 08/19/18 Docusate Sodium [Stool Softener] 100 mg PO QHS 11/20/18 Metoprolol Tartrate [Lopressor (beta madeleine)] 25 mg PO BID #60 tablet 11/21/18 Following Prescrptions Were Given to Patient: Metoprolol Tartrate [Lopressor (beta madeleine)] 25 mg PO BID #60 tablet Primary Care Physician: Yosi Oliver MD [Primary Care Provider] - Please follow up with your Primary Care Physician in: in 1-2 weeks Patient Instructions: ED Chest Pain NonCardiac Disposition: Home Minutes spent on discharge:: 35 Patient Condition:: Stable Medical Necessity - Tobacco Use Smoking Status: Never smoker Meaningful Use Info Meaningful Use Diagnoses (Choose all that apply): None applicable Code Visit OBSV E&M: 35768 Observation care discharge
[2018-11-21] MEDS: Multivitamins,Therapeutic Tablet 1 TABLET PO (13:16)
[2018-11-21] MEDS: Calcium Carbonate 500 MG Tablet PO (13:17)
[2018-11-21 13:26] LABS: Bedside Glucose 125 mg/dL (70-110)
--- NOTE | 2018-11-21 14:11 | DCINST_ITS ---
- Discharge Diagnoses Current Active Problems: Current Active and Chronic Problems (Last Reviewed 11/20/18 @ 16:42 by Yosi Chairez DO) Symptomatic bradycardia (Acute) CAD (coronary artery disease), [place] coronary artery (Chronic) Ventricular bigeminy (Acute) Chest pain (Acute) Fatigue (Acute) Ectopic cardiac beats (Chronic) Chest pain (Acute) You will use the following diet at home:: No restrictions Discharge Activity: Return to Normal Activity Instructions: ED Chest Pain NonCardiac Allergies/Adverse Reactions: Allergies amoxicillin Allergy (Verified 07/13/18 10:04) Unknown Medications to take at Discharge Aspirin [Aspirin, Baby] 81 mg PO DAILY 01/17/15 Atorvastatin Calcium [Lipitor] 40 mg PO QHS 01/17/15 Nitroglycerin (INPATIENT USE) [Nitrostat] 0.4 mg SUBLINGUAL Q5M PRN 01/17/15 Cholecalciferol (Vitamin D3) [Vitamin D3] 1,000 unit PO DAILY 10/09/16 Isosorbide Mononitrate [Imdur] 30 mg PO DAILY 10/09/16 Multivitamin [Daily Multiple Vitamin] 1 ea PO DAILY 10/09/16 Quinapril HCl [Accupril] 5 mg PO DAILY 10/09/16 ascorbic acid (vitamin C) 1,000 mg tablet 3 g PO QDAY tab 09/01/17 calcium citrate 250 mg tablet 250 mg PO BID tab 09/01/17 rivaroxaban 15 mg tablet 15 mg PO QDAY #30 tab 08/19/18 Docusate Sodium [Stool Softener] 100 mg PO QHS 11/20/18 Metoprolol Tartrate [Lopressor (beta madeleine)] 25 mg PO BID #60 tablet 11/21/18 The following prescriptions were given: Metoprolol Tartrate [Lopressor (beta madeleine)] 25 mg PO BID #60 tablet Primary Care Physician: Yois Oliver MD [Primary Care Provider] - Please follow up with your Primary Care Physician in: in 1-2 weeks Test Results: Test results from this visit will be discussed in further detail at your follow- up appointment, if applicable. Proposed Discharge Date: 11/21/18
[2018-11-21] MEDS: Metoprolol Tartrate 25 MG Tablet PO (15:20)
== END 2018-11-21 14:09 | disposition home or self-care (01) ==
LOC: ED 16:17 → PCU 16:44
PROVIDERS: Internal Medicine Cardiovascular Disease; Emergency Provider Emergency Medicine; Family Provider Family Medicine; PCP Family Medicine; Visit Provider Internal Medicine
DX: R07.89 Other chest pain (principal); I48.0 Paroxysmal atrial fibrillation; I25.10 Atherosclerotic heart disease of native coronary artery without angina pectoris; E78.5 Hyperlipidemia, unspecified; I10 Essential (primary) hypertension; Z95.5 Presence of coronary angioplasty implant and graft; I25.2 Old myocardial infarction; K58.9 Irritable bowel syndrome, unspecified; Z79.899 Other long term (current) drug therapy; Z79.01 Long term (current) use of anticoagulants; Z79.82 Long term (current) use of aspirin; R00.8 Other abnormalities of heart beat; R73.9 Hyperglycemia, unspecified
CPT/HCPCS: 36415; 71045; 78452; 80048; 81001; 82962; 83036; 83735; 84443; 84484; 85025; 85027; 85610; 85730; 87086; 87088; 93005; 93017; 93306; 96360; 96361; 97162; 97166; 99218; 99285; A9500; J7030; A4216; G0378; J2785

== ENCOUNTER 2019-06-11 20:37 | Emergency (ER) | payer MEDICARE, OTHER, SELFPAY ==
[2019-01-11 10:10] VITALS: BMI 32.2
[2019-06-11 20:38] VITALS: BP 158/68; PULSE 80; RESP 18; TEMP 37.2; O2SAT 97; BMI 31.8
--- NOTE | 2019-06-11 20:53 | ED.DCSUM_ITS ---
History of Present Illness Chief Complaint: Fall Informant: Patient, Family Narrative: Patient states that she fell 1 week ago after losing her balance in the bathroom. At that point she mostly had pain in the back and right shoulder. However those have gotten better. She has had pain in the left hip but today it is been significantly worse. She denies any additional trauma. Pain waxes and wanes but has been constant. Is worse with movement. There are no radicular symptoms. No bowel or bladder dysfunction. Past Medical History - Allergies and Home Meds Allergies/Adverse Reactions: Allergies amoxicillin Allergy (Verified 06/11/19 20:41) Unknown Primary Care Physician: Yosi Oliver MD [Primary Care Provider] - 3-5 Days if not improving Surgical History: angioplasty - w/ stent, cataract, hysterectomy, tonsillectomy Smoking Status: Never smoker - Family History Maternal Family History: Family History (Last Reviewed 01/11/19 @ 10:34 by Clayton Felder MD) Mother CAD (coronary artery disease) Myocardial infarction Father Alzheimer disease Brother Heart disease Dementia Hypertension Family History: Reports: Diabetes Paternal Family History: Family History (Last Reviewed 01/11/19 @ 10:34 by Clayton Felder MD) Mother CAD (coronary artery disease) Myocardial infarction Father Alzheimer disease Brother Heart disease Dementia Hypertension Family History: Reports: Unknown Sibling Family History: Family History (Last Reviewed 01/11/19 @ 10:34 by Clayton Felder MD) Mother CAD (coronary artery disease) Myocardial infarction Father Alzheimer disease Brother Heart disease Dementia Hypertension Family History: Reports: Heart Disease Review of Systems General: Denies: Chills, Fever, Sweats Eyes: Denies: Visual changes - bilaterally, Diplopia ENT: Denies: Rhinorrhea, Sore throat Cardiovascular: Denies: Chest pain, Palpitations Respiratory: Denies: Dyspnea, Cough, Dyspnea on exertion Gastrointestinal: Denies: Abdominal pain, Nausea, Vomiting, Diarrhea, Melena, Hematochezia Genitourinary: Denies: Dysuria, Hematuria, Frequency Musculoskeletal: Reports: Back pain, - - Right shoulder and left hip pain. Denies: Myalgias, Arthralgias, Neck pain, Extremity Pain Skin: Denies: Rash, Wounds Neurological: Denies: Headache, Weakness, Numbness Physical Exam Vital Signs/Narrative: Vital Signs Temp Pulse Resp BP Pulse Ox 12/08/19 20:38 98.9 F 80 18 158/68 H 97 Inital Vital Signs reviewed: Yes General: Well nourished, Well developed, No Acute Distress Head: Normocephalic, Atraumatic Eyes: Perrl, EOMI ENT: Moist mucous membranes, No rhinorrhea Neck: Supple, Nontender Cardiovascular: Regular rate, Regular rhythm, No murmurs Respiratory: No distress, CTA bilaterally, Chest nontender Abdomen: Soft, Nontender, Nondistended, Normal bowel sounds Back: Nontender, Normal Inspection Extremities: No edema, Tenderness - Tender to palpation over the greater trochanter. She winces with logroll. No pubic rami tenderness. No low back tenderness. Neurovascularly intact of the lower extremity. Skin: Normal color, No rash Neurological: Alert, Oriented x3, Cranial nerves II-XII grossly intact, Normal Strength, Normal Sensation Psychological: Normal affect, Normal Mood Diagnostic/Tx/Re-eval - Medical Decision Making X-rays of the hip and pelvis demonstrated degenerative changes but no acute fractures. Given the location of the patient's pain right posterior to the greater trochanter question if this is a bursitis traumatic versus inflammatory. Going to give her a dose of Kenalog. I will write for a few [place]. Patient is to ice the area. If she is not seeing improvement in 3 days have asked that she follow-up with her doctor. She has a walker that she can use at home for support. While the patient was having x-rays taken it was reported to be by staff that the piece of the x-ray machine had fallen and hit her. Patient notes that it hit her in the posterior left shoulder. Examination of the skin demonstrates no abrasion contusion laceration. No tenderness to palpation. A Quatro's form was filled out by radiology. ED Disposition - Plan for ED Patient: Disposition: Home or Assisted Living Diagnosis: Hip bursitis, left Instructions: What Is Bursitis? Prescriptions: Hydrocodone Bitart/Apap 5-325 [[place] 5MG-325MG] 1 tab PO Q6H PRN PRN 3 Days #10 tab PRN Reason: Pain Prescription Printed Referrals: Yosi Oliver MD [Primary Care Provider] - 3-5 Days if not improving
--- NOTE | 2019-06-11 21:15 | RAD_ITS ---
STUDY: X-RAY - PELVIS AND LEFT HIP REASON FOR EXAM: Female, 84 years old. Left hip pain after fall TECHNIQUE: 3 views of the pelvis and hip. COMPARISON: September 19, 2015 FINDINGS: There is a non-specific bowel gas pattern. Normal visualized soft tissue structures. Normal bilateral iliac wings, sacroiliac joints and visualized sacrum. Normal bilateral superior and inferior pubic rami. Normal pubic symphysis. Normal bilateral ischial tuberosities. There are osteoarthritic changes of the femoral head with marginal osteophyte formation. There is osteoarthritic spur formation of the acetabular rim. There is mild articular joint space narrowing of the hip. RAD/HIP, UNI W/ Pelvis 2-3 Views IMPRESSION: No acute findings Electronically Signed: Kyree Castillo DO at 21:41 EST Tel , Service support ,
[2019-06-11] MEDS: HYDROcodone Bitartrate/Apap 5/325 Tablet PO (22:32)
[2019-06-11] MEDS: Triamcinolone Acetonide 40 MG/ML Vial IM (22:32)
[2019-06-11 23:06] VITALS: BP 134/54; PULSE 74; RESP 16
== END 2019-06-11 23:08 | disposition home or self-care (01) ==
PROVIDERS: Emergency Provider Emergency Medicine; Family Provider Family Medicine; PCP Family Medicine
DX: M70.72 Other bursitis of hip, left hip (principal)
CPT/HCPCS: 73502; 96372; 99283

== ENCOUNTER → 2019-07-06 11:23 | Outpatient (CLI) | payer MEDICARE, OTHER, SELFPAY ==
[2019-06-11 20:38] VITALS: BMI 31.8
[2019-07-06 12:21] LABS: Absolute Lymphocyte Count 1.68 X10^3/uL (0.83-4.51); Absolute Neutrophil Count 4.6 X10^3/uL (2.0-7.7); Basophil# 0.03 X10^3/uL; Basophil% 0.4 % (0-1); Eosinophil# 0.12 X10^3/uL; Eosinophils% 1.7 % (0-5); Hematocrit 43.5 % (37-47); Hemoglobin 14.1 g/dL (12.0-15.0); Lymphocyte # 1.68 X10^3/ul (4.0); Mean Corp Hgb Conc 32.4 g/dL (32-36); Mean Corpuscular Hgb 31.3 pg (27.0-32.0); Mean Corpuscular Volume 96.5 fL (81-99); Mean Platelet Vol. 9.6 fl (6.2-12.0); Monocyte# 0.48 X10^3/uL; Monocyte% 6.9 % (0-10); NRBC Flagged by Analyzer 0 % (0-5); Neutrophil # 4.64 X10^3/uL (2.7-7.7); Neutrophil % 66.4 % (47-70); Platelet Count 221 K/mm3 (150-450); RBC Distribution Width CV 13.5 % (11.6-14.6); RBC Distribution Width SD 48.3 fl (35.1-43.9); Red Blood Count 4.51 M/mm3 (4.2-5.4)
[2019-07-06 13:11] LABS: AST(SGOT) 20 U/L (15-37); Alanine Aminotransfer ALT/SGPT 25 U/L (13-56); Albumin, Serum 3.3 g/dL (3.2-5.0); Alkaline Phosphatase 26 U/L (45-117); Anion Gap 6 (5-15); BUN 7 mg/dL (7-18); BUN/Creat Ratio 9.7 RATIO (10-20); Calcium,Total 8.8 mg/dL (8.5-10.1); Chloride 104 mmol/L (98-107); Creatinine, Serum 0.72 mg/dL (0.55-1.02); EST Glomerular Filtration Rate 82 mL/min (>60); Est Glom Filt Rate - Afr Amer 99 mL/min (>60); Globulin 3.3 g/dL (2.2-4.2); Glucose 119 mg/dL (74-106); Potassium 3.7 mmol/L (3.5-5.1); Protein, Total 6.6 g/dL (6.4-8.2); Sodium Level 139 mmol/L (136-145)
== END ==
PROVIDERS: Family Provider Family Medicine; PCP Family Medicine; Referring Provider Family Medicine; Visit Provider Family Medicine
DX: R53.83 Other fatigue (principal)
CPT/HCPCS: 36415; 80053; 84443; 85025

== ENCOUNTER → 2019-07-19 11:39 | Outpatient (CLI) | payer MEDICARE, OTHER, SELFPAY ==
[2019-07-19 09:18] VITALS: BMI 33.1
[2019-07-19 13:01] LABS: AST(SGOT) 17 U/L (15-37); Alanine Aminotransfer ALT/SGPT 22 U/L (13-56); Albumin, Serum 3.1 g/dL (3.2-5.0); Alkaline Phosphatase 26 U/L (45-117); Bilirubin, Direct 0.14 mg/dL (0.00-0.30); Cholesterol 107 mg/dL (200); Globulin 3.1 g/dL (2.2-4.2); High Density Lipoprotein 49 mg/dL; Protein, Total 6.2 g/dL (6.4-8.2); Triglycerides 88 mg/dL; Very Low Density Lipoprotein 18 mg/dL (5-40)
== END ==
PROVIDERS: Family Provider Family Medicine; PCP Family Medicine; Referring Provider Physician Assistant Medical; Visit Provider Physician Assistant Medical
DX: I25.10 Atherosclerotic heart disease of native coronary artery without angina pectoris (principal); I48.0 Paroxysmal atrial fibrillation; I10 Essential (primary) hypertension; E78.00 Pure hypercholesterolemia, unspecified
CPT/HCPCS: 36415; 80061; 80076

== ENCOUNTER → 2020-04-08 09:36 | Outpatient (CLI) | payer MEDICARE, OTHER, SELFPAY ==
[2019-07-19 09:18] VITALS: BMI 33.1
[2020-04-08 12:00] LABS: Absolute Lymphocyte Count 1.66 X10^3/uL (0.83-4.51); Absolute Neutrophil Count 3.4 X10^3/uL (2.0-7.7); Basophil# 0.04 X10^3/uL; Basophil% 0.7 % (0-1); Eosinophil# 0.13 X10^3/uL; Eosinophils% 2.3 % (0-5); Hematocrit 45.1 % (37-47); Hemoglobin 15.2 g/dL (12.0-15.0); Lymphocyte # 1.66 X10^3/ul (4.0); Lymphocyte % 29.2 % (19-41); Mean Corp Hgb Conc 33.7 g/dL (32-36); Mean Corpuscular Hgb 32.7 pg (27.0-32.0); Mean Platelet Vol. 10.6 fl (6.2-12.0); Monocyte# 0.45 X10^3/uL; Monocyte% 7.9 % (0-10); NRBC Flagged by Analyzer 0 % (0-5); Neutrophil # 3.39 X10^3/uL (2.7-7.7); Neutrophil % 59.7 % (47-70); Platelet Count 221 K/mm3 (150-450); RBC Distribution Width CV 13.2 % (11.6-14.6); RBC Distribution Width SD 46.4 fl (35.1-43.9); Red Blood Count 4.65 M/mm3 (4.2-5.4); White Blood Count 5.7 K/mm3 (4.4-11.0)
[2020-04-08 12:42] LABS: AST(SGOT) 19 U/L (15-37); Alanine Aminotransfer ALT/SGPT 25 U/L (13-56); Albumin, Serum 3.3 g/dL (3.2-5.0); Alkaline Phosphatase 25 U/L (45-117); Anion Gap 5 (5-15); BUN 12 mg/dL (7-18); BUN/Creat Ratio 16.4 RATIO (10-20); Bilirubin, Direct 0.22 mg/dL (0.00-0.30); Calcium,Total 8.7 mg/dL (8.5-10.1); Chloride 104 mmol/L (98-107); Cholesterol 109 mg/dL (200); Creatinine, Serum 0.73 mg/dL (0.55-1.02); EST Glomerular Filtration Rate 80 mL/min (>60); Est Glom Filt Rate - Afr Amer 97 mL/min (>60); Globulin 3.2 g/dL (2.2-4.2); Glucose 105 mg/dL (74-106); High Density Lipoprotein 60 mg/dL; Magnesium 2.2 mg/dL (1.6-2.6); Potassium 4.1 mmol/L (3.5-5.1); Protein, Total 6.5 g/dL (6.4-8.2); Sodium Level 140 mmol/L (136-145); Thyroid Stim Hormone (TSH) 2.69 uIU/mL (0.358-3.74); Triglycerides 68 mg/dL; Very Low Density Lipoprotein 14 mg/dL (5-40)
== END ==
PROVIDERS: PCP Family Medicine; Visit Provider Family Medicine
DX: I25.10 Atherosclerotic heart disease of native coronary artery without angina pectoris (principal); E78.00 Pure hypercholesterolemia, unspecified; E78.5 Hyperlipidemia, unspecified
CPT/HCPCS: 36415; 80053; 80061; 82043; 82248; 82570; 83735; 84443; 85025

== ENCOUNTER → 2020-11-15 11:23 | Outpatient (CLI) | payer MEDICARE, OTHER, SELFPAY ==
[2020-05-01 09:41] VITALS: BMI 32.8
[2020-11-15 15:10] LABS: Absolute Lymphocyte Count 1.77 X10^3/uL (0.83-4.51); Absolute Neutrophil Count 3.7 X10^3/uL (2.0-7.7); Basophil# 0.05 X10^3/uL; Basophil% 0.8 % (0-1); Eosinophil# 0.18 X10^3/uL; Eosinophils% 2.8 % (0-5); Hematocrit 45.9 % (37-47); Hemoglobin 14.6 g/dL (12.0-15.0); Lymphocyte # 1.77 X10^3/ul (0.83-4.51); Lymphocyte % 27.6 % (19-41); Mean Corp Hgb Conc 31.8 g/dL (32-36); Mean Corpuscular Hgb 31.3 pg (27.0-32.0); Mean Corpuscular Volume 98.3 fL (81-99); Mean Platelet Vol. 10.6 fl (6.2-12.0); Monocyte# 0.68 X10^3/uL; Monocyte% 10.6 % (0-10); NRBC Flagged by Analyzer 0 % (0-5); Neutrophil # 3.72 X10^3/uL (2.7-7.7); Platelet Count 234 K/mm3 (150-450); RBC Distribution Width CV 12.6 % (11.6-14.6); RBC Distribution Width SD 45.7 fl (35.1-43.9); Red Blood Count 4.67 M/mm3 (4.2-5.4); White Blood Count 6.4 K/mm3 (4.4-11.0)
[2020-11-15 15:29] LABS: AST(SGOT) 21 U/L (15-37); Alanine Aminotransfer ALT/SGPT 22 U/L (13-56); Albumin, Serum 3.2 g/dL (3.2-5.0); Alkaline Phosphatase 28 U/L (45-117); Anion Gap 3 (5-15); BUN 12 mg/dL (7-18); BUN/Creat Ratio 18.2 RATIO (10-20); Chloride 105 mmol/L (98-107); Creatinine, Serum 0.66 mg/dL (0.55-1.02); EST Glomerular Filtration Rate 90 mL/min (>60); Est Glom Filt Rate - Afr Amer 109 mL/min (>60); Globulin 3.1 g/dL (2.2-4.2); Glucose 102 mg/dL (74-106); Potassium 4.3 mmol/L (3.5-5.1); Protein, Total 6.3 g/dL (6.4-8.2); Sodium Level 140 mmol/L (136-145)
== END ==
PROVIDERS: PCP Family Medicine; Referring Provider Family Medicine; Visit Provider Family Medicine
DX: I10 Essential (primary) hypertension (principal); J44.9 Chronic obstructive pulmonary disease, unspecified
CPT/HCPCS: 36415; 80053; 85025

== ENCOUNTER → 2021-01-24 11:21 | Outpatient (CLI) | payer MEDICARE, OTHER, SELFPAY ==
[2020-05-01 09:41] VITALS: BMI 32.8
--- NOTE | 2021-01-24 11:30 | RAD_ITS ---
STUDY: X-RAY - PELVIS AND RIGHT HIP REASON FOR EXAM: Right hip pain. TECHNIQUE: 2 views of the pelvis and hip. COMPARISON: Radiographs 06/11/2019. FINDINGS: There is enthesopathy of the right greater trochanter. There is vascular calcification. Normal bilateral iliac wings, sacroiliac joints and visualized sacrum. Normal bilateral superior and inferior pubic rami. There are degenerative changes of a pubic symphysis. Normal bilateral ischial tuberosities. Normal visualized femoral head. There is a bone island in the medial aspect of the right acetabulum. There is mild joint space narrowing of the superior medial right hip joint. RAD/HIP, UNI W/ Pelvis 2-3 Views IMPRESSION: Mild right hip arthrosis. Electronically Signed: Jeremy Grajeda MD at 13:33 EDT Tel , Service support ,
== END ==
PROVIDERS: PCP Family Medicine; Referring Provider Family Medicine; Visit Provider Family Medicine
DX: M16.11 Unilateral primary osteoarthritis, right hip (principal)
CPT/HCPCS: 73502

== ENCOUNTER 2021-08-19 11:21 | Outpatient (CLI) | payer MEDICARE, OTHER, SELFPAY ==
[2021-08-19 15:09] LABS: Absolute Lymphocyte Count 1.54 X10^3/uL (0.83-4.51); Absolute Neutrophil Count 3.3 X10^3/uL (2.0-7.7); Basophil# 0.06 X10^3/uL; Basophil% 1.1 % (0-1); Eosinophil# 0.11 X10^3/uL; Hematocrit 45.3 % (37-47); Hemoglobin 14.9 g/dL (12.0-15.0); Lymphocyte # 1.54 X10^3/ul (0.83-4.51); Lymphocyte % 28.1 % (19-41); Mean Corp Hgb Conc 32.9 g/dL (32-36); Mean Corpuscular Hgb 31.5 pg (27.0-32.0); Mean Corpuscular Volume 95.8 fL (81-99); Mean Platelet Vol. 10.7 fl (6.2-12.0); Monocyte# 0.52 X10^3/uL; Monocyte% 9.5 % (0-10); NRBC Flagged by Analyzer 0 % (0-5); Neutrophil # 3.25 X10^3/uL (2.7-7.7); Neutrophil % 59.1 % (47-70); Platelet Count 234 K/mm3 (150-450); RBC Distribution Width CV 13.1 % (11.6-14.6); RBC Distribution Width SD 46.4 fl (35.1-43.9); Red Blood Count 4.73 M/mm3 (4.2-5.4); White Blood Count 5.5 K/mm3 (4.4-11.0)
[2021-08-19 15:36] LABS: ALB/GLOB Ratio 1.1 RATIO (0.9-2.4); AST(SGOT) 20 U/L (15-37); Alanine Aminotransfer ALT/SGPT 20 U/L (13-56); Albumin, Serum 3.1 g/dL (3.2-5.0); Alkaline Phosphatase 25 U/L (45-117); Anion Gap 4 (5-15); BUN 11 mg/dL (7-18); BUN/Creat Ratio 15.8 RATIO (10-20); Chloride 105 mmol/L (98-107); EST Glomerular Filtration Rate 85 mL/min (>60); Est Glom Filt Rate - Afr Amer 102 mL/min (>60); Globulin 2.8 g/dL (2.2-4.2); Glucose 129 mg/dL (74-106); Potassium 4.1 mmol/L (3.5-5.1); Protein, Total 5.9 g/dL (6.4-8.2); Sodium Level 140 mmol/L (136-145); Thyroid Stim Hormone (TSH) 3.02 uIU/mL (0.358-3.74)
== END 2021-08-19 23:59 | disposition home or self-care (01) ==
LOC: MFPLAB 11:27
PROVIDERS: PCP Family Medicine; Referring Provider Family Medicine; Visit Provider Family Medicine
DX: I10 Essential (primary) hypertension (principal); F03.90 Unspecified dementia, unspecified severity, without behavioral disturbance, psychotic disturbance, mood disturbance, and anxiety; J44.9 Chronic obstructive pulmonary disease, unspecified
CPT/HCPCS: 36415; 80053; 84443; 85025

== ENCOUNTER 2022-03-02 22:02 | Emergency (ER) | payer MEDICARE, OTHER, SELFPAY ==
[2022-03-02 22:03] VITALS: BP 95/77; PULSE 115; RESP 18; TEMP 37.3; O2SAT 94; BMI 31.5
--- NOTE | 2022-03-02 22:25 | EKG12_ITS ---
Test Reason : SYNCOPE Blood Pressure : / mmHG Vent. Rate : 103 BPM Atrial Rate : 000 BPM P-R Int : 000 ms QRS Dur : 084 ms QT Int : 336 ms P-R-T Axes : 000 -27 047 degrees QTc Int : 440 ms Atrial fibrillation with rapid ventricular response with premature ventricular or aberrantly conducte d complexes Nonspecific ST and T wave abnormality Abnormal ECG Confirmed by CHERELLE RUTH, YUSUF ([id number]), managing editor JASON REYES ([id number]) on 03/03/2022 8:23:53 AM Referred By: Confirmed By:YUSUF VILLARREAL MD
--- NOTE | 2022-03-02 22:25 | CT_ITS ---
STUDY: CT BRAIN WITHOUT CONTRAST REASON FOR EXAM: Female, 87 years old. syncope RADIATION DOSAGE (If Supplied By Facility): CTDIvol = ( 44.99 ) mGy, DLP = ( 812.98 ) mGycm TECHNIQUE: Transaxial CT imaging of the brain was performed without administration of intravenous contrast material. Individualized dose optimization techniques were used for this CT. COMPARISON: CT brain 09/19/2015 FINDINGS: BRAIN: Normal [place]/white matter differentiation. VENTRICLES: No hydrocephalus. Bilateral periventricular hypoattenuation, nonspecific however likely represents chronic microvascular ischemic changes. EXTRA-AXIAL SPACES: No hemorrhages, fluid collections, or masses. CALVARIUM/SKULL BASE: Normal. FACE/SINUSES: [id number] right maxillary sinus mucosal thickening. SOFT TISSUES: Normal. OTHER: Vascular calcifications. CONCLUSION: No intracranial hemorrhage or acute territorial infarction. Electronically Signed: Prosper Goodwin MD at 23:31 EDT , CT/Brain/Head without Contrast IMPRESSION: undefined
--- NOTE | 2022-03-02 22:27 | EDS_ITS ---
HPI History of Present Illness Chief Complaint: Syncope Narrative Narrative: Patient is an 87-year-old female who lives at home with her daughter. She has a history of persistent atrial fibrillation with hypertension hyperlipidemia and CAD. She is on long-term anticoagulation with Xarelto. This evening patient got up to go to bed but went to the bathroom first. Daughter states she went to the bathroom a few minutes later and found the patient passed out sitting on the toilet. She states she called her name a few times but she did not awake. She then called 911 and a few seconds after hanging up the phone the patient awoke and was at her baseline mental status. Daughter denies any seizure-like activity. Patient denies any chest pain palpitations or shortness of breath prior to the event and states she feels normal at this time. However with the syncopal event occurring she presents for evaluation. [facility] Medical History (Updated 03/03/22 @ 02:[address] Jose Eller, DO) Atherosclerotic heart disease of [place] coronary artery without angina pectoris Atrial fibrillation Chest pain Essential (primary) hypertension Ganglion cyst of dorsum of left wrist Hyperlipemia Hypersomnia Hypoxemia IBS (irritable bowel syndrome) Longstanding persistent atrial fibrillation Non-ST elevation (NSTEMI) myocardial infarction (08/2014) Obesity Symptomatic bradycardia Ventricular bigeminy Home Medications aspirin 81 mg chewable tablet 81 mg PO DAILY HEART HEALTH 01/17/15 [History Last Taken 11/20/18] nitroglycerin 0.4 mg sublingual tablet 0.4 mg sublingual Q5M PRN Chest Pain 01/17/15 [History Last Taken 01/17/15] cholecalciferol (vitamin D3) 25 mcg (1,000 unit) capsule 1,000 unit PO DAILY SUPPLEMENT 10/09/16 [History Last Taken Unknown] multivitamin 1 ea PO DAILY SUPPLEMENT 10/09/16 [History Last Taken Unknown] ascorbic acid (vitamin C) 1,000 mg tablet 1,000 mg PO TID SUPPLEMENT 09/01/17 [History Last Taken Unknown] calcium citrate 500 mg PO BID SUPPLEMENT 09/01/17 [History Last Taken Unknown] docusate sodium 100 mg capsule 100 mg PO QHS STOOL SOFTENER 11/20/18 [History Last Taken Unknown] atorvastatin 40 mg tablet 40 mg PO QHS cholesterol #90 tabs 05/01/20 [Rx Last Taken Unknown] isosorbide mononitrate 30 mg tablet,extended release 24 hr 30 mg PO DAILY HEART #90 tabs 05/01/20 [Rx Last Taken Unknown] quinapril 5 mg tablet 5 mg PO DAILY BLOOD PRESSURE #90 tabs 05/01/20 [Rx Last Taken Unknown] metoprolol tartrate 25 mg tablet 25 mg PO BID #180 tabs 06/16/21 [Rx Last Taken Unknown] rivaroxaban 15 mg tablet (Xarelto) 15 mg PO QDAY #30 tabs 07/09/21 [Rx Last Taken Unknown] donepezil 10 mg tablet 10 mg PO DAILY 11/27/21 [History Last Taken Unknown] Allergy/AdvReac Type Severity Reaction Status Date / Time amoxicillin Allergy Unknown Verified 03/02/22 22:02 Family History Mother CAD (coronary artery disease) Myocardial infarction Father Alzheimer disease Brother Heart disease Dementia Hypertension Surgical History H/O wrist surgery History of coronary artery stent placement (08/31/14) Social History Smoking Status: Never smoker second hand exposure: No alcohol intake: never substance use type: does not use ROS ROS ED Constitutional Constitutional ED: Denies chills or fever(s) ENT ENT ED: Denies sore throat Cardiovascular Cardiovascular: Denies chest pain or palpitations Respiratory/Chest Respiratory/Chest: Denies cough or dyspnea Gastrointestinal Gastrointestinal: Denies abdominal pain, diarrhea, nausea or vomiting Genitourinary Genitourinary ED: Denies dysuria or hematuria Musculoskeletal Musculoskeletal: Denies myalgias Integumentary Denies rash Neurologic Neurologic: Reports other Details: Positive syncope ; Denies headache(s) Hematologic/Lymphatic Hematologic/Lymphatic: Reports easy bleeding and easy bruising EXAM Physical Exam Const Vital Signs: 03/02/22 22:03 03/02/22 22:58 03/02/22 23:03 Temperature 99.1 F Temperature Source Oral Pulse Rate 115 H Pulse Rate [Lying] 101 H Pulse Rate [Sitting (for 1 minute prior to obtaining)] 110 H Pulse Rate [Standing (for 1 minute prior to obtaining)] 128 H Respiratory Rate 18 Respiratory Effort Normal Blood Pressure 95/77 Blood Pressure [Lying] 120/57 L Blood Pressure [Sitting (for 1 minute prior to obtaining)] 132/73 H Blood Pressure [Standing (for 1 minute prior to obtaining)] 136/79 H Blood Pressure Mean 83 Blood Pressure Mean [Lying] 78 Blood Pressure Mean [Sitting (for 1 minute prior to obtaining)] 92 Blood Pressure Mean [Standing (for 1 minute prior to obtaining)] 98 Pulse Ox 94 Oxygen Delivery Method Room Air 03/03/22 00:41 03/03/22 01:00 03/03/22 01:59 Temperature Temperature Source Pulse Rate 99 104 H 108 H Pulse Rate [Lying] Pulse Rate [Sitting (for 1 minute prior to obtaining)] Pulse Rate [Standing (for 1 minute prior to obtaining)] Respiratory Rate 23 H 24 H 19 H Respiratory Effort Blood Pressure 99/44 L 128/67 H 128/67 H Blood Pressure [Lying] Blood Pressure [Sitting (for 1 minute prior to obtaining)] Blood Pressure [Standing (for 1 minute prior to obtaining)] Blood Pressure Mean 62 87 87 Blood Pressure Mean [Lying] Blood Pressure Mean [Sitting (for 1 minute prior to obtaining)] Blood Pressure Mean [Standing (for 1 minute prior to obtaining)] Pulse Ox 93 94 93 Oxygen Delivery Method Room Air Room Air Room Air Positive well nourished and well developed General Appearance ED: well developed HEENT Reports dry mucous membranes Mouth ED: Yes dry mucous membranes Mouth: dry mucous membranes Eyes PERRL and EOMs intact bilaterally Neck supple Resp normal respiratory effort and clear to auscultation bilaterally Cardio Rate: tachycardic and other Other Details: Irregularly irregular rhythm with tachycardic rate consistent with history of persistent atrial fibrillation GI normal to inspection, nondistended, normoactive bowel sounds, non-tender and non-distended GI Narrative: No voluntary guarding no rigidity no pulsatile mass Auscultation: normoactive bowel sounds Palpation: soft Extremity normal to inspection Neuro oriented x3 and CN's II-XII intact bilaterally Neuro Narrative: Cranial nerves II through XII are grossly intact there are no focal neurologic deficits. No pronator drift no dysmetria no truncal ataxia. NIH stroke scale score of 0 Sensorium / Orientation: alert Psych mental status grossly normal Skin no rashes or lesions noted Skin Narrative: Skin turgor is increased MDM MDM MDM Narrative Medical decision making narrative: Patient presented to the ER in atrial fibrillation with mildly elevated heart rate. However she is on anticoagulation secondary to chronic A. fib and does take metoprolol for rate control. Her history is most consistent with orthostasis and her exam shows dehydration changes. Basic labs were obtained which does show mild bump in her creatinine at just above 1 when her baseline is 0.6-0.7 consistent with the dehydration found on her exam. Patient was given a liter of fluid and 1 dose of Cardizem and her heart rate reduced and blood pressure improved. Head CT was also obtained as she reportedly fell earlier in the day which revealed no acute bleed. At the end of her work-up patient was ambulated with her walker and could do well and therefore at this time with no acute traumatic findings by exam and CT scan and labs showing no clinically significant findings patient is otherwise safe for discharge Lab Data Attestation: I reviewed the patient's lab results. Labs: Laboratory Results - last 24 hr 03/02/22 03/02/22 22:25 22:25 WBC 5.4 RBC 4.14 L Hgb 13.4 Hct 40.2 MCV 97.1 MCH 32.4 H MCHC 33.3 RDW Std Deviation 46.2 H RDW Coeff of Vern 12.9 Plt Count 181 MPV 10.3 Immature Gran % (Auto) 0.400 Neut % (Auto) 61.5 Lymph % (Auto) 18.7 L Shannon % (Auto) 18.3 H Eos % (Auto) 0.4 Baso % (Auto) 0.7 Absolute Neuts (auto) 3.3 Absolute Lymphs (auto) 1.00 Nucleated RBC % 0 Sodium 139 Potassium 3.7 Chloride 103 Carbon Dioxide 30.0 Anion Gap 6 BUN 17 Creatinine 1.03 H Estim Creat Clear Calc 37.42 Est GFR (MDRD) Af Amer 65 Est GFR (MDRD) Non-Af 54 L BUN/Creatinine Ratio 16.5 Glucose 161 H Calcium 8.7 Magnesium 2.0 Radiography Diagnostic Testing: Clinical Impression(s) from Imaging Studies Brain CT 03/02/22 22:25 IMPRESSION: undefined Discharge Plan Triage Chief Complaint: Syncope ED Provider: Jose Eller Dx/Rx/DC Orders Clinical Impression: Syncope, Longstanding persistent atrial fibrillation, Dehydration, mild, 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 Instructions: What Is Syncope, Dehydration Prescriptions: No Action calcium citrate 250 mg tablet 250 mg calcium tablet 500 mg PO BID ascorbic acid (vitamin C) 1,000 mg tablet 1,000 mg PO TID atorvastatin 40 mg tablet 40 mg PO QHS Qty: 90 3RF isosorbide mononitrate 30 mg tablet extended release 24 hr 30 mg PO DAILY Qty: 90 3RF quinapril 5 mg tablet 5 mg PO DAILY Qty: 90 3RF donepezil 10 mg tablet 10 mg PO DAILY Label Comments: TAKE ONE TABLET BY MOUTH EVERY MORNING with food nitroglycerin 0.4 MG tablet 0.4 mg SUBLINGUAL Q5M PRN (Reason: Chest Pain) Label Comments: chest pain aspirin 81 MG tablet,chewable 81 mg PO DAILY Label Comments: heart health multivitamin 1 EACH tablet 1 ea PO DAILY cholecalciferol (vitamin D3) 1,000 UNIT capsule 1,000 unit PO DAILY docusate sodium 100 MG capsule 100 mg PO QHS metoprolol tartrate 25 mg tablet 25 mg PO BID Qty: 180 3RF Xarelto 15 mg tablet 15 mg PO QDAY Qty: 30 11RF Primary Care Provider: Yosi Oliver Referrals: Yosi Oliver MD [Primary Care Provider] - Activity Restrictions/Additional Instructions: Please continue all of your medications as previously directed and keep yourself well-hydrated. If you have any further concerns please return to the ER for repeat evaluation Disposition Disposition: Home, Self Care
[2022-03-02 22:43] LABS: Absolute Neutrophil Count 3.3 X10^3/uL (2.0-7.7); Basophil# 0.04 X10^3/uL; Basophil% 0.7 % (0-1); Eosinophil# 0.02 X10^3/uL; Eosinophils% 0.4 % (0-5); Hematocrit 40.2 % (37-47); Hemoglobin 13.4 g/dL (12.0-15.0); Lymphocyte % 18.7 % (19-41); Mean Corp Hgb Conc 33.3 g/dL (32-36); Mean Corpuscular Hgb 32.4 pg (27.0-32.0); Mean Corpuscular Volume 97.1 fL (81-99); Mean Platelet Vol. 10.3 fl (6.2-12.0); Monocyte# 0.98 X10^3/uL; Monocyte% 18.3 % (0-10); NRBC Flagged by Analyzer 0 % (0-5); Neutrophil # 3.29 X10^3/uL (2.7-7.7); Neutrophil % 61.5 % (47-70); Platelet Count 181 K/mm3 (150-450); RBC Distribution Width CV 12.9 % (11.6-14.6); RBC Distribution Width SD 46.2 fl (35.1-43.9); Red Blood Count 4.14 M/mm3 (4.2-5.4); White Blood Count 5.4 K/mm3 (4.4-11.0)
[2022-03-02 22:57] LABS: BUN 17 mg/dL (7-18); Creatinine, Serum 1.03 mg/dL (0.55-1.02); Estimated Creatinine Clearance 37.42 ml/min; Glucose 161 mg/dL (74-106)
[2022-03-02 22:58] LABS: Anion Gap 6 (5-15); BUN/Creat Ratio 16.5 RATIO (10-20); Calcium,Total 8.7 mg/dL (8.5-10.1); Chloride 103 mmol/L (98-107); EST Glomerular Filtration Rate 54 mL/min (>60); Est Glom Filt Rate - Afr Amer 65 mL/min (>60); Potassium 3.7 mmol/L (3.5-5.1); Sodium Level 139 mmol/L (136-145)
[2022-03-02 23:03] VITALS: BP 120/57; BP 132/73; BP 136/79; PULSE 101; PULSE 110; PULSE 128
[2022-03-02] MEDS: 0.9% Normal Saline 1,000 ML 999 ML IV (23:31)
[2022-03-02] MEDS: dilTIAZem 25 MG/5 ML Vial 10 MG IV BOLUS (23:31)
[2022-03-03 00:41] VITALS: BP 99/44; PULSE 99; RESP 23; O2SAT 93
[2022-03-03 01:00] VITALS: BP 128/67; PULSE 104; RESP 24; O2SAT 94
[2022-03-03 01:59] VITALS: BP 128/67; PULSE 108; RESP 19; O2SAT 93
[2022-03-03 02:18] VITALS: BP 128/67; PULSE 108; RESP 15; TEMP -7.2; TEMP 19; O2SAT 93
== END 2022-03-03 02:19 | disposition home or self-care (01) ==
PROVIDERS: Emergency Provider Emergency Medicine; PCP Family Medicine; Visit Provider Emergency Medicine
DX: R55 Syncope and collapse (principal); I48.11 Longstanding persistent atrial fibrillation; E86.0 Dehydration; I25.10 Atherosclerotic heart disease of native coronary artery without angina pectoris; I10 Essential (primary) hypertension; E78.5 Hyperlipidemia, unspecified; Z79.82 Long term (current) use of aspirin; Z79.899 Other long term (current) drug therapy; Z79.01 Long term (current) use of anticoagulants
CPT/HCPCS: 70450; 80048; 83735; 85025; 93005; 96361; 96374; 99285; J7030; A4216

== ENCOUNTER → 2022-03-06 | Outpatient (CLI) | payer MEDICARE, OTHER, SELFPAY ==
--- NOTE | 2022-03-06 17:30 | RAD_ITS ---
EXAM: XR ABDOMEN, 2 VIEWS CLINICAL INDICATION: LUMBAGO TECHNIQUE: Frontal view of the abdomen/pelvis with upright view of the abdomen. This report was created using [employer] report generation technology. COMPARISON: None. FINDINGS: LOWER THORAX: No acute pathology. INTRAPERITONEAL SPACE: No free air. GASTROINTESTINAL TRACT: Unremarkable. Non-obstructive. No bowel or stomach distention. ORGANS: Unremarkable as visualized. No organomegaly. No abnormal calcifications. BONES/JOINTS: No acute pathology. SOFT TISSUES: No acute pathology. VASCULATURE: Degenerative findings in the lumbar spine. There are atherosclerotic vascular calcifications. RAD/Abd Inc Decub and/or Erect IMPRESSION: No acute findings in the abdomen or pelvis. Electronically Signed: Dav Yeh MD at 19:02 EDT ,
== END | disposition home or self-care (01) ==
LOC: MTRAD 17:22
PROVIDERS: PCP Family Medicine; Referring Provider Family Medicine; Visit Provider Family Medicine
DX: M54.50 Low back pain, unspecified (principal)
CPT/HCPCS: 74019

== ENCOUNTER 2022-06-17 22:07 | Emergency (ER) | payer MEDICARE, OTHER, SELFPAY ==
[2022-06-17 22:09] VITALS: BP 147/51; PULSE 74; RESP 21; TEMP 36.6; O2SAT 93; BMI 35.6
--- NOTE | 2022-06-17 22:18 | EKG12_ITS ---
Test Reason : SYNCOPE Blood Pressure : / mmHG Vent. Rate : 063 BPM Atrial Rate : 063 BPM P-R Int : 194 ms QRS Dur : 094 ms QT Int : 428 ms P-R-T Axes : 027 -24 044 degrees QTc Int : 437 ms Normal sinus rhythm Normal ECG Confirmed by ABIODUN RUTH, NUNO ([id number]), newspaper copy editor JASON REYES ([id number]) on 06/19/2022 10:47:20 AM Referred By: Confirmed By:ELLIS RASCON MD
--- NOTE | 2022-06-17 22:19 | EDS_ITS ---
HPI History of Present Illness Chief Complaint: Chest Pain Detail of Chief Complaint: Indigestion, belching and syncope Informant: family Limited: dementia Onset/Context/Timing Onset: Today and Days Activity at onset: sudden Timing: Intermittent (Family states she was belching for approximately 2 hours) Quality: Positive for Indigestion Location: - (Subxiphoid/epigastric.) Current Severity: Gone Maximum Severity: Unable to determine because of dementia Worsened By: Nothing (Per family) Relieved By: Nothing (Family) Associated Symptoms: Positive for Diaphoresis and - (Pallor with syncope and collapse); Negative for Nausea, Vomiting, Dyspnea, Cough, Fever, Lightheadedness, Acid Reflux or Palpitations Narrative Narrative: Patient is an 87-year-old woman who has history of ventricular bigeminy, symptomatic bradycardia, atherosclerotic heart disease, longstanding atrial fibrillation on anticoagulant, hypertension hyperlipidemia who presents after syncopal episode. Since she does not recall anything and does not know why she was here family was the primary informant. She had been seen in a chair and belching for approximately 2 hours. She complained of pain that she localized to the epigastric. She told family it was indigestion-like discomfort. They did not notice shortness of breath. She did not vomit. Presently she has no symptoms. With regards to the size, color consisting of stool unknown. History is very limited because of patient's dementia. Prior Similar Symptoms: No Recent Illness/Hospitalization: No CVD Risk Factors: Positive for Hypertension and Hypercholesterolemia; Negative for Smoking PE Risk Factors: Negative for Recent Travel/Surgery, Recent Immobilization, Prior DVT or PE, Cancer or OCP + Smoking + >/=35 TAD Risk Factors: Positive for Hypertension; Negative for Marfan's Syndrome or Family History [facility] Medical History Atherosclerotic heart disease of [place] coronary artery without angina pectoris Atrial fibrillation Chest pain Essential (primary) hypertension Ganglion cyst of dorsum of left wrist Hyperlipemia Hypersomnia Hypoxemia IBS (irritable bowel syndrome) Longstanding persistent atrial fibrillation Non-ST elevation (NSTEMI) myocardial infarction (08/2014) Obesity Symptomatic bradycardia Ventricular bigeminy Home Medications aspirin 81 mg chewable tablet 81 mg PO DAILY HEART HEALTH 01/17/15 [History Last Taken 11/20/18] nitroglycerin 0.4 mg sublingual tablet 0.4 mg sublingual Q5M PRN Chest Pain 01/17/15 [History Last Taken 01/17/15] cholecalciferol (vitamin D3) 25 mcg (1,000 unit) capsule 1,000 unit PO DAILY SUPPLEMENT 10/09/16 [History Last Taken Unknown] multivitamin 1 ea PO DAILY SUPPLEMENT 10/09/16 [History Last Taken Unknown] ascorbic acid (vitamin C) 1,000 mg tablet 1,000 mg PO TID SUPPLEMENT 09/01/17 [History Last Taken Unknown] calcium citrate 500 mg PO BID SUPPLEMENT 09/01/17 [History Last Taken Unknown] docusate sodium 100 mg capsule 100 mg PO QHS STOOL SOFTENER 11/20/18 [History Last Taken Unknown] atorvastatin 40 mg tablet 40 mg PO QHS cholesterol #90 tabs 05/01/20 [Rx Last Taken Unknown] isosorbide mononitrate 30 mg tablet,extended release 24 hr 30 mg PO DAILY HEART #90 tabs 05/01/20 [Rx Last Taken Unknown] quinapril 5 mg tablet 5 mg PO DAILY BLOOD PRESSURE #90 tabs 05/01/20 [Rx Last Taken Unknown] rivaroxaban 15 mg tablet (Xarelto) 15 mg PO QDAY #30 tabs 07/09/21 [Rx Last Taken Unknown] donepezil 10 mg tablet 10 mg PO DAILY 11/27/21 [History Last Taken Unknown] metoprolol tartrate 25 mg tablet 25 mg PO BID #180 tabs 06/15/22 [Rx Last Taken Unknown] levocetirizine 5 mg tablet 5 mg PO DAILY 06/18/22 [History Last Taken Unknown] Allergy/AdvReac Type Severity Reaction Status Date / Time amoxicillin Allergy Unknown Verified 06/17/22 22:19 Family History Mother CAD (coronary artery disease) Myocardial infarction Father Alzheimer disease Brother Heart disease Dementia Hypertension Surgical History H/O wrist surgery History of coronary artery stent placement (08/31/14) Social History (Updated 06/17/22 @ 22:[address] Abe Porras MD) household members: family Smoking Status: Never smoker second hand exposure: No alcohol intake: never substance use type: does not use ROS ROS ED Review of Systems ROS Unobtainable: due to mental status Cardiovascular Cardiovascular: Reports as per HPI EXAM Physical Exam Const Vital Signs: 06/17/22 22:09 06/17/22 22:16 06/17/22 22:58 Temperature 97.9 F Temperature Source Oral Pulse Rate 74 66 Respiratory Rate 21 H 17 Respiratory Effort Non-Labored Blood Pressure 147/51 H 149/66 H Blood Pressure Mean 83 93 Pulse Ox 93 95 Oxygen Delivery Method Room Air Room Air 06/18/22 00:00 06/18/22 01:11 Temperature Temperature Source Pulse Rate 72 69 Respiratory Rate 20 H 19 H Respiratory Effort Blood Pressure 148/61 H 148/61 H Blood Pressure Mean 90 90 Pulse Ox 94 96 Oxygen Delivery Method Room Air Room Air Positive well nourished, well developed and obese General Appearance ED: well developed and NAD; Negative for pallor Nutritional Appearance: obese HEENT Reports TM's clear and moist mucous membranes HEENT Narrative: Ears normal. Nares patent. Uvula midline. Mucosa moist. No erythema or exudate the posterior pharynx. normocephalic and atraumatic Tympanic Membrane ED: Yes TM's clear Eyes PERRL and EOMs intact bilaterally General Eye ED: Negative for pale conjunctiva or scleral icterus Neck no lymphadenopathy, supple and no JVD Neck Narrative: There is no carotid bruit noted. Chest Wall inspection of chest normal and palpation of chest normal Resp normal respiratory effort and clear to auscultation bilaterally Cardio regular rate, regular rhythm, S1 normal heart sound, S2 normal heart sound and no murmurs Peripheral Pulses: pulses 2+ throughout and dorsalis pedis pulses present bilateral GI normal to inspection, nondistended, normoactive bowel sounds, soft to palpation, non-tender, non-distended and no masses; Negative for hepatosplenomegaly GI Narrative: There is no palpable or pulsatile mass. There is no abdominal bruit. Back/Spine no CVA tenderness and no thoracic nor lumbar tenderness Extremity Negative for normal to inspection Extremity Narrative: DP pulses 2+ and symmetric. There is pitting edema 2 mm. General Extremety ED: Yes edema; Negative for pulses abnormal or tenderness General Extremity: edema; Negative for pulses abnormal Neuro No oriented x3, CN's II-XII intact bilaterally and no sensory deficits noted Sensorium / Orientation: awake and alert Motor Exam: strength 5/5 throughout Psych mental status grossly normal Skin no rashes or lesions noted and no wounds General Skin Exam: Negative for jaundice or pallor Heart Score History: Slightly/Non-Suspicious ECG: Normal Age: >/= 65 years Risk Factors: >/= 3 Risk Factors or History of CAD Score: 4 MDM MDM MDM Narrative Medical decision making narrative: History and physical is suggestive of vasovagal syncopal. Since she does not have a headache neck pain, meningeal findings doubt subarachnoid hemorrhage. Since patient denies shortness of breath any discomfort doubt pulmonary embolus. Patient's history and physical as stated is consistent with vasovagal episode. Because of her multiple risk factors and history of atherosclerotic heart disease EKG was obtained to evaluate for ischemia as well as troponin. Lab Data Attestation: I reviewed the patient's lab results. Lab results narrative: First troponin was 7 and second troponin is 6. Since this is less than 7 delta is -1 negative predictive value is 100%. This would rule out cardiac ischemia. Patient's syncopal spell was due to vasovagal episode. Plan is to discharge to home with family. Labs: Laboratory Results - last 24 hr 06/17/22 06/18/22 22:30 00:47 Troponin I High Sens 7 6 EKG Initial EKG: Attestation: I personally reviewed and interpreted this EKG as follows: Interpretation: Sinus Rhythm (Normal EKG with a ventricular rate of 63. MT interval 294 ms. Cures duration 94 ms for QT duration 4 and 28 ms. [place] is normal.) Discharge Plan Triage Chief Complaint: Chest Pain ED Provider: Abe Porras Dx/Rx/DC Orders Clinical Impression: Syncope, vasovagal, Hyperlipemia, Atherosclerotic heart disease of [place] coronary artery without angina pectoris, Essential (primary) hypertension, Longstanding persistent atrial fibrillation, Anticoagulant long-term use Instructions: ED Fainting, Vagal Reaction Prescriptions: No Action calcium citrate 250 mg tablet 250 mg calcium tablet 500 mg PO BID ascorbic acid (vitamin C) 1,000 mg tablet 1,000 mg PO TID atorvastatin 40 mg tablet 40 mg PO QHS Qty: 90 3RF isosorbide mononitrate 30 mg tablet extended release 24 hr 30 mg PO DAILY Qty: 90 3RF quinapril 5 mg tablet 5 mg PO DAILY Qty: 90 3RF donepezil 10 mg tablet 10 mg PO DAILY Label Comments: TAKE ONE TABLET BY MOUTH EVERY MORNING with food nitroglycerin 0.4 MG tablet 0.4 mg SUBLINGUAL Q5M PRN (Reason: Chest Pain) Label Comments: chest pain aspirin 81 MG tablet,chewable 81 mg PO DAILY Label Comments: heart health multivitamin 1 EACH tablet 1 ea PO DAILY cholecalciferol (vitamin D3) 1,000 UNIT capsule 1,000 unit PO DAILY docusate sodium 100 MG capsule 100 mg PO QHS levocetirizine 5 mg Tablet 5 mg PO DAILY Xarelto 15 mg tablet 15 mg PO QDAY Qty: 30 11RF metoprolol tartrate 25 mg tablet 25 mg PO BID Qty: 180 3RF Primary Care Provider: Yosi Oliver Referrals: Yosi Oliver MD [Primary Care Provider] - As Needed Disposition Disposition: Home, Self Care
[2022-06-17 22:58] VITALS: BP 149/66; PULSE 66; RESP 17; O2SAT 95
[2022-06-17 23:11] LABS: Troponin-I HS 7 pg/mL (3.0-54.0)
[2022-06-18] VITALS: BP 148/61; PULSE 72; RESP 20; O2SAT 94
[2022-06-18 01:10] LABS: Troponin-I HS 6 pg/mL (3.0-54.0)
[2022-06-18 01:11] VITALS: BP 148/61; PULSE 69; RESP 19; O2SAT 96
[2022-06-18 01:40] VITALS: BP 148/61; PULSE 69; RESP 19; O2SAT 96
== END 2022-06-18 01:40 | disposition home or self-care (01) ==
PROVIDERS: Emergency Provider Emergency Medicine; PCP Family Medicine; Visit Provider Emergency Medicine
DX: R55 Syncope and collapse (principal); I48.19 Other persistent atrial fibrillation; E78.5 Hyperlipidemia, unspecified; I25.10 Atherosclerotic heart disease of native coronary artery without angina pectoris; I10 Essential (primary) hypertension; E66.9 Obesity, unspecified; Z95.5 Presence of coronary angioplasty implant and graft; Z79.82 Long term (current) use of aspirin; Z79.899 Other long term (current) drug therapy; Z79.01 Long term (current) use of anticoagulants
CPT/HCPCS: 84484; 93005; 99285; A4216

== ENCOUNTER → 2022-07-15 | Outpatient (CLI) | payer MEDICARE, OTHER, SELFPAY ==
--- NOTE | 2022-07-15 09:04 | RAD_ITS ---
INDICATION: hip pain EXAMINATION/TECHNIQUE: X-RAY - BILATERAL XR Hips Bilateral with Pelvis when performed; 2 Views COMPARISON: None. FINDINGS: PELVIC BONES: No displaced fracture, destructive or sclerotic lesions. Note that overlapping bowel shadows may however obscure fine detail. Sacroiliac joints are unremarkable. No widening of the pubic symphysis. HIPS: The articular structures are unremarkable. No displaced fracture seen in this frontal view. SOFT TISSUES: No soft tissue swelling or gas. RAD/Hips B/L min 2 views w/ Pelvis IMPRESSION: No evidence of displaced pelvic or hip fracture. Electronically Signed: Scar Tanner MD at 19:08 EST Reading Location ID and State: [facility] / MD , Service support ,
== END | disposition home or self-care (01) ==
LOC: MTRAD 09:03
PROVIDERS: PCP Family Medicine; Referring Provider Family Medicine; Visit Provider Family Medicine
DX: M25.551 Pain in right hip (principal); M25.552 Pain in left hip
CPT/HCPCS: 73521

== ENCOUNTER 2022-09-03 12:28 | Emergency (ER) | payer MEDICARE, OTHER, SELFPAY ==
[2022-09-03 12:38] VITALS: BP 166/67; PULSE 79; RESP 14; TEMP 36.3; O2SAT 95
--- NOTE | 2022-09-03 13:29 | CT_ITS ---
STUDY: CT BRAIN WITHOUT CONTRAST REASON FOR EXAM: Female, 87 years old. Head injury due to a fall. RADIATION DOSAGE (If Supplied By Facility): CTDIvol = ( 44.99 ) mGy, DLP = ( 829.85 ) mGycm TECHNIQUE: Transaxial CT imaging of the brain was performed without administration of intravenous contrast material. Individualized dose optimization techniques were used for this CT. COMPARISON: Comparison is made with prior examination March 02, 2022. FINDINGS: Normal soft tissue structures. Normal calvarium. There is moderate cerebral atrophy with widening of the extra-axial spaces and ventricular dilatation. There are areas of decreased attenuation within the white matter tracts of the supratentorial brain, consistent with microvascular disease changes. Normal basal ganglia and thalami. Normal brainstem. Normal cerebellum. There is no intracranial hemorrhage. There are no findings of an acute ischemic infarction. Atherosclerotic calcification of the vertebral arteries and cavernous portions of the internal carotid arteries bilaterally. Partial opacification of the right maxillary sinus. CT/Brain/Head without Contrast IMPRESSION: Chronic involutional changes of the brain. Partial opacification of the right maxillary sinus. Electronically Signed: Marlon Ahmadi MD at 14:30 EST ,
[2022-09-03 13:49] VITALS: BMI 33.0
[2022-09-03 13:50] VITALS: BP 154/69; PULSE 78; RESP 16; O2SAT 93
[2022-09-03 14:10] LABS: Absolute Lymphocyte Count 1.39 X10^3/uL (0.83-4.51); Absolute Neutrophil Count 6.5 X10^3/uL (2.0-7.7); Basophil# 0.03 X10^3/uL; Basophil% 0.3 % (0-1); Eosinophil# 0.06 X10^3/uL; Eosinophils% 0.7 % (0-5); Hematocrit 46.4 % (37-47); Lymphocyte # 1.39 X10^3/ul (0.83-4.51); Lymphocyte % 16.1 % (19-41); Mean Corp Hgb Conc 32.3 g/dL (32-36); Mean Corpuscular Hgb 31.3 pg (27.0-32.0); Mean Corpuscular Volume 96.9 fL (81-99); Mean Platelet Vol. 10.1 fl (6.2-12.0); Monocyte# 0.61 X10^3/uL; NRBC Flagged by Analyzer 0 % (0-5); Neutrophil # 6.54 X10^3/uL (2.7-7.7); Neutrophil % 75.6 % (47-70); Platelet Count 226 K/mm3 (150-450); RBC Distribution Width CV 13.7 % (11.6-14.6); RBC Distribution Width SD 49.2 fl (35.1-43.9); Red Blood Count 4.79 M/mm3 (4.2-5.4); White Blood Count 8.7 K/mm3 (4.4-11.0)
[2022-09-03 14:14] LABS: International Normalized Ratio 2.3; Prothrombin Time (Protime)PT. 25.4 SECONDS (11.7-14.9)
[2022-09-03 14:15] LABS: Partial Thromboplast Time 38.7 Seconds (24.1-36.2)
[2022-09-03 14:16] LABS: Bacteria 0 SEEN /hpf (None Seen); Color, Urine Yellow (Yellow); Glucose, Dipstick Normal (Normal); Ketone-Dipstick Negative (Negative); Leukocyte Esterase-Dipstick 25 /ul (Negative); Mucous, Urine 0 SEEN /hpf (<or=2+); Nitrite-Dipstick Negative (Negative); Occult Blood-Urine 10 /ul (Negative); Protein-Dipstick Negative (Negative); Red Blood Cells-Urine 0 SEEN /hpf (0-5); Specific Gravity, Urine 1.015 (1.002-1.030); Squamous Epithelial Cells - UA 0 SEEN /hpf (5-10); Urine Bilirubin Dipstick Negative (Negative); Urine Clarity Clear (Clear); Urine Urobilinogen Normal (Normal); White Blood Cells 0 SEEN /hpf (0-5)
[2022-09-03 14:18] LABS: Anion Gap 4 (5-15); BUN 13 mg/dL (7-18); BUN/Creat Ratio 18.4 RATIO (10-20); Calcium,Total 9.8 mg/dL (8.5-10.1); Chloride 107 mmol/L (98-107); Creatinine, Serum 0.71 mg/dL (0.55-1.02); EST Glomerular Filtration Rate 83 mL/min (>60); Est Glom Filt Rate - Afr Amer 100 mL/min (>60); Estimated Creatinine Clearance 34.23 ml/min; Glucose 121 mg/dL (74-106); Potassium 4.1 mmol/L (3.5-5.1); Sodium Level 142 mmol/L (136-145)
--- NOTE | 2022-09-03 14:53 | EDS_ITS ---
HPI HPI - Fall History of Present Illness Chief Complaint: Fall Informant: patient Occured/Mechanism Occurred: Today Mechanism/Context: Yes same level fall Pain/Injury Location: Head Pain Location: head Quality of Pain: Dull Worsened by: Nothing Relieved by: Nothing Associated Symptoms Associated Symptoms: Positive for Weakness and Loss of consciousness; Negative for Parasthesias, Loss of function, Inability to ambulate or Amnesia Length of loss of consciousness: Questionable but brief Narrative Narrative: Patient presents after a fall that occurred today. Patient was bending over trying to cook pickled meat crayons off of the floor when she fell forward. Patient felt weak. There was a questionable brief loss of consciousness. Patient states she was feeling shaky when this occurred. Patient is on anticoagulants, Xarelto. Patient denies any chest pain or shortness of breath at the present time. Patient denies any palpitations. Patient denies any headaches. Patient admits to some pain in her back which is chronic. Patient also admits to some recent urinary frequency. [facility] Medical History Atherosclerotic heart disease of [place] coronary artery without angina pectoris Atrial fibrillation Chest pain Dementia Essential (primary) hypertension Ganglion cyst of dorsum of left wrist Hyperlipemia Hypersomnia Hypoxemia IBS (irritable bowel syndrome) Longstanding persistent atrial fibrillation Non-ST elevation (NSTEMI) myocardial infarction (08/2014) Obesity Symptomatic bradycardia Ventricular bigeminy Home Medications aspirin 81 mg chewable tablet 81 mg PO DAILY HEART HEALTH 01/17/15 [History Last Taken 11/20/18] nitroglycerin 0.4 mg sublingual tablet 0.4 mg sublingual Q5M PRN Chest Pain 01/17/15 [History Last Taken 01/17/15] cholecalciferol (vitamin D3) 25 mcg (1,000 unit) capsule 1,000 unit PO DAILY SUPPLEMENT 10/09/16 [History Last Taken Unknown] multivitamin 1 ea PO DAILY SUPPLEMENT 10/09/16 [History Last Taken Unknown] ascorbic acid (vitamin C) 1,000 mg tablet 1,000 mg PO TID SUPPLEMENT 09/01/17 [History Last Taken Unknown] calcium citrate 500 mg PO BID SUPPLEMENT 09/01/17 [History Last Taken Unknown] docusate sodium 100 mg capsule 100 mg PO QHS STOOL SOFTENER 11/20/18 [History Last Taken Unknown] atorvastatin 40 mg tablet 40 mg PO QHS cholesterol #90 tabs 05/01/20 [Rx Last Taken Unknown] isosorbide mononitrate 30 mg tablet,extended release 24 hr 30 mg PO DAILY HEART #90 tabs 05/01/20 [Rx Last Taken Unknown] quinapril 5 mg tablet 5 mg PO DAILY BLOOD PRESSURE #90 tabs 05/01/20 [Rx Last Taken Unknown] donepezil 10 mg tablet 10 mg PO DAILY 11/27/21 [History Last Taken Unknown] metoprolol tartrate 25 mg tablet 25 mg PO BID #180 tabs 06/15/22 [Rx Last Taken Unknown] levocetirizine 5 mg tablet 5 mg PO DAILY 06/18/22 [History Last Taken Unknown] rivaroxaban 15 mg tablet (Xarelto) 15 mg PO QDAY #30 tabs 07/13/22 [Rx Last Taken Unknown] Allergy/AdvReac Type Severity Reaction Status Date / Time amoxicillin Allergy Unknown Verified 09/03/22 12:41 Family History Mother CAD (coronary artery disease) Myocardial infarction Father Alzheimer disease Brother Heart disease Dementia Hypertension Surgical History H/O wrist surgery History of coronary artery stent placement (08/31/14) Social History household members: family Smoking Status: Never smoker second hand exposure: No alcohol intake: never substance use type: does not use ROS ROS ED Constitutional Constitutional ED: Denies chills or fever(s) Eyes Eyes: Denies blurry vision or change in vision ENT ENT ED: Denies rhinorrhea or sore throat Cardiovascular Cardiovascular: Reports palpitations and racing heartbeat; Denies chest pain Respiratory/Chest Respiratory/Chest: Denies cough or dyspnea Gastrointestinal Gastrointestinal: Denies nausea or vomiting Genitourinary Genitourinary ED: Reports urinary frequency; Denies dysuria or hematuria Musculoskeletal Musculoskeletal: Reports back pain; Denies neck pain Integumentary Denies abscess or rash Neurologic Neurologic: Denies headache(s) or weakness Allergic/Immunologic Allergic/Immunologic ED: Denies mouth swelling or urticaria EXAM Physical Exam Const Vital Signs: 09/03/22 12:38 09/03/22 13:50 09/03/22 13:50 Temperature 97.4 F L Temperature Source Temporal Pulse Rate 79 78 Respiratory Rate 14 16 Respiratory Effort Normal Respiratory Pattern Normal Blood Pressure 166/67 H 154/69 H Blood Pressure Mean 100 97 Pulse Ox 95 93 Oxygen Delivery Method Room Air Positive well nourished, well developed and obese General Appearance ED: well developed and NAD Nutritional Appearance: obese HEENT Reports moist mucous membranes Neck supple and no JVD Resp normal respiratory effort and clear to auscultation bilaterally Cardio regular rate and regular rhythm GI normal to inspection, nondistended, normoactive bowel sounds and non-tender Palpation: soft Extremity normal to inspection General Extremety ED: Negative for edema or tenderness General Extremity: Negative for edema Neuro oriented x3, CN's II-XII intact bilaterally and no sensory deficits noted Sensorium / Orientation: alert Motor Exam: strength 5/5 throughout Psych mental status grossly normal Skin no rashes or lesions noted MDM MDM MDM Narrative Medical decision making narrative: Differential diagnosis includes intracranial bleeding, head injury, urinary tract infection, viral infection, cardiac dysrhythmia, coagulopathy, and e lectrolyte abnormality. CBC will be obtained to assess for leukocytosis and anemia. Basic metabolic profile will be obtained to assess for electrolyte abnormality and renal function. PT with INR and PTT will be obtained to assess for coagulopathy. Urinalysis will be obtained to assess for urinary tract infection and hematuria. CT scan of the brain will be obtained to assess for intracranial bleeding. Lab Data Lab results narrative: CBC was reviewed and was within normal limits. PT was INR and PTT were reviewed. PT was 25.4 and INR was 2.3. PTT was 38.7. Basic metabolic profile was reviewed and was essentially within normal limits. Urinalysis was reviewed and was essentially within normal limits. Labs: Laboratory Results - last 24 hr 09/03/22 09/03/22 09/03/22 13:54 13:54 13:54 WBC 8.7 RBC 4.79 Hgb 15.0 Hct 46.4 MCV 96.9 MCH 31.3 MCHC 32.3 RDW Std Deviation 49.2 H RDW Coeff of Vern 13.7 Plt Count 226 MPV 10.1 Immature Gran % (Auto) 0.300 Neut % (Auto) 75.6 H Lymph % (Auto) 16.1 L [place] % (Auto) 7.0 Eos % (Auto) 0.7 Baso % (Auto) 0.3 Absolute Neuts (auto) 6.5 Absolute Lymphs (auto) 1.39 Nucleated RBC % 0 PT 25.4 H INR 2.3 APTT 38.7 H Sodium 142 Potassium 4.1 Chloride 107 Carbon Dioxide 31.0 Anion Gap 4 L BUN 13 Creatinine 0.71 Estim Creat Clear Calc 34.23 Est GFR (MDRD) Af Amer 100 Est GFR (MDRD) Non-Af 83 BUN/Creatinine Ratio 18.4 Glucose 121 H Calcium 9.8 Urine Color Urine Clarity Urine pH Ur Specific [place] Urine Protein Urine Glucose (UA) Urine Ketones Urine Occult Blood Urine Nitrite Urine Bilirubin Urine Urobilinogen Ur Leukocyte Esterase Urine RBC Urine WBC Ur Squamous Epith Cells Urine Bacteria Urine Mucus 09/03/22 14:10 WBC RBC Hgb Hct MCV MCH MCHC RDW Std Deviation RDW Coeff of Vern Plt Count MPV Immature Gran % (Auto) Neut % (Auto) Lymph % (Auto) [place] % (Auto) Eos % (Auto) Baso % (Auto) Absolute Neuts (auto) Absolute Lymphs (auto) Nucleated RBC % PT INR APTT Sodium Potassium Chloride Carbon Dioxide Anion Gap BUN Creatinine Estim Creat Clear Calc Est GFR (MDRD) Af Amer Est GFR (MDRD) Non-Af BUN/Creatinine Ratio Glucose Calcium Urine Color Yellow Urine Clarity Clear Urine pH 7.0 Ur Specific [place] 1.015 Urine Protein Negative Urine Glucose (UA) Normal Urine Ketones Negative Urine Occult Blood 10 H Urine Nitrite Negative Urine Bilirubin Negative Urine Urobilinogen Normal Ur Leukocyte Esterase 25 H Urine RBC 0 SEEN Urine WBC 0 SEEN Ur Squamous Epith Cells 0 SEEN Urine Bacteria 0 SEEN Urine Mucus 0 SEEN Radiography Diagnostic Testing: Clinical Impression(s) from Imaging Studies Brain CT 09/03/22 13:29 IMPRESSION: Chronic involutional changes of the brain. Partial opacification of the right maxillary sinus. Electronically Signed: Marlon Ahmadi MD at 14:30 EST , CT scan of the brain was obtained. There is no acute intracranial abnormality. This was interpreted by the radiologist and was also independently reviewed by myself. Treatment and Re-Evaluation Narrative: Patient was advised of her findings. Patient will be given head injury instructions. Patient was instructed to take Tylenol as needed for pain. Patient was instructed to follow-up with her primary care physician in 5 to 7 days. Patient understood and was agreeable with the plan. All questions were answered. Discharge Plan Triage Chief Complaint: Fall ED Provider: Yosi Hancock Dx/Rx/DC Orders Clinical Impression: Fall, Closed head injury Instructions: ED Fall with Uncertain Cause, ED Head Injury (Adult) Prescriptions: No Action calcium citrate 250 mg tablet 250 mg calcium tablet 500 mg PO BID ascorbic acid (vitamin C) 1,000 mg tablet 1,000 mg PO TID atorvastatin 40 mg tablet 40 mg PO QHS Qty: 90 3RF isosorbide mononitrate 30 mg tablet extended release 24 hr 30 mg PO DAILY Qty: 90 3RF quinapril 5 mg tablet 5 mg PO DAILY Qty: 90 3RF donepezil 10 mg tablet 10 mg PO DAILY Label Comments: TAKE ONE TABLET BY MOUTH EVERY MORNING with food nitroglycerin 0.4 MG tablet 0.4 mg SUBLINGUAL Q5M PRN (Reason: Chest Pain) Label Comments: chest pain aspirin 81 MG tablet,chewable 81 mg PO DAILY Label Comments: heart health multivitamin 1 EACH tablet 1 ea PO DAILY cholecalciferol (vitamin D3) 1,000 UNIT capsule 1,000 unit PO DAILY docusate sodium 100 MG capsule 100 mg PO QHS levocetirizine 5 mg Tablet 5 mg PO DAILY metoprolol tartrate 25 mg tablet 25 mg PO BID Qty: 180 3RF Xarelto 15 mg tablet 15 mg PO QDAY Qty: 30 11RF Primary Care Provider: Yosi Oliver Referrals: Yosi Oliver MD [Primary Care Provider] - 5-7 Days Disposition Disposition: Home, Self Care
[2022-09-03 15:23] VITALS: RESP 16
== END 2022-09-03 15:24 | disposition home or self-care (01) ==
PROVIDERS: Emergency Provider Emergency Medicine; PCP Family Medicine; Visit Provider Emergency Medicine
DX: S09.90XA Unspecified injury of head, initial encounter (principal); R35.0 Frequency of micturition; I25.10 Atherosclerotic heart disease of native coronary artery without angina pectoris; G89.29 Other chronic pain; M54.9 Dorsalgia, unspecified; I25.2 Old myocardial infarction; E66.9 Obesity, unspecified; Z95.5 Presence of coronary angioplasty implant and graft; W18.30XA Fall on same level, unspecified, initial encounter; Z79.01 Long term (current) use of anticoagulants
CPT/HCPCS: 70450; 80048; 81001; 85025; 85610; 85730; 99285; A4216

== ENCOUNTER → 2022-11-26 | Outpatient (CLI) | payer MEDICARE, OTHER, SELFPAY ==
[2022-11-26 12:35] LABS: AST(SGOT) 15 U/L (15-37); Alanine Aminotransfer ALT/SGPT 19 U/L (13-56); Albumin, Serum 2.8 g/dL (3.2-5.0); Alkaline Phosphatase 25 U/L (45-117); Bilirubin, Direct 0.16 mg/dL (0.00-0.30); Cholesterol 102 mg/dL (200); Globulin 3.3 g/dL (2.2-4.2); High Density Lipoprotein 51 mg/dL; Protein, Total 6.1 g/dL (6.4-8.2); Triglycerides 64 mg/dL; Very Low Density Lipoprotein 13 mg/dL (5-40)
== END | disposition home or self-care (01) ==
LOC: LAB 11:36
PROVIDERS: PCP Family Medicine; Referring Provider Physician Assistant Medical; Visit Provider Physician Assistant Medical
DX: E78.00 Pure hypercholesterolemia, unspecified (principal)
CPT/HCPCS: 36415; 80061; 80076

== ENCOUNTER → 2023-05-19 | Outpatient (CLI) | payer MEDICARE, OTHER, SELFPAY ==
[2023-05-19 10:23] LABS: AST(SGOT) 17 U/L (15-37); Alanine Aminotransfer ALT/SGPT 16 U/L (13-56); Albumin, Serum 2.9 g/dL (3.2-5.0); Alkaline Phosphatase 29 U/L (45-117); Bilirubin, Direct 0.13 mg/dL (0.00-0.30); Cholesterol 108 mg/dL (200); Globulin 3.3 g/dL (2.2-4.2); High Density Lipoprotein 45 mg/dL; Protein, Total 6.2 g/dL (6.4-8.2); Triglycerides 80 mg/dL; Very Low Density Lipoprotein 16 mg/dL (5-40)
== END | disposition home or self-care (01) ==
LOC: LAB 09:05
PROVIDERS: PCP Family Medicine; Visit Provider Physician Assistant Medical
DX: E78.00 Pure hypercholesterolemia, unspecified (principal)
CPT/HCPCS: 36415; 80061; 80076

== ENCOUNTER → 2023-11-17 | Outpatient (CLI) | payer MEDICARE, OTHER, SELFPAY ==
[2023-11-17 11:04] LABS: Microalbumin,Random Urine 7.4 mg/L (NO RANGE EST.); Microalbumin:Creatinine Ratio 5.3 mg/g CRE (<30 mg/g CRE)
[2023-11-17 11:10] LABS: Absolute Lymphocyte Count 1.72 X10^3/uL (0.83-4.51); Absolute Neutrophil Count 4.9 X10^3/uL (2.0-7.7); Basophil# 0.05 X10^3/uL; Basophil% 0.7 % (0-1); Eosinophil# 0.19 X10^3/uL; Eosinophils% 2.6 % (0-5); Hematocrit 47.4 % (37-47); Hemoglobin 15.1 g/dL (12.0-15.0); Lymphocyte # 1.72 X10^3/ul (0.83-4.51); Lymphocyte % 23.3 % (19-41); Mean Corp Hgb Conc 31.9 g/dL (32-36); Mean Corpuscular Hgb 30.5 pg (27.0-32.0); Mean Corpuscular Volume 95.8 fL (81-99); Mean Platelet Vol. 10.3 fl (6.2-12.0); Monocyte# 0.47 X10^3/uL; Monocyte% 6.4 % (0-10); NRBC Flagged by Analyzer 0 % (0-5); Neutrophil # 4.94 X10^3/uL (2.7-7.7); Neutrophil % 66.7 % (47-70); Platelet Count 241 K/mm3 (150-450); RBC Distribution Width CV 12.7 % (11.6-14.6); Red Blood Count 4.95 M/mm3 (4.2-5.4); White Blood Count 7.4 K/mm3 (4.4-11.0)
[2023-11-17 11:13] LABS: ALB/GLOB Ratio 0.9 RATIO (0.9-2.4); AST(SGOT) 17 U/L (15-37); Alanine Aminotransfer ALT/SGPT 17 U/L (13-56); Alkaline Phosphatase 27 U/L (45-117); Anion Gap 3 (5-15); BUN 10 mg/dL (7-18); BUN/Creat Ratio 14.6 RATIO (10-20); Calcium,Total 8.8 mg/dL (8.5-10.1); Chloride 108 mmol/L (98-107); Cholesterol 122 mg/dL (200); Creatinine, Serum 0.69 mg/dL (0.55-1.02); EST Glomerular Filtration Rate 86 mL/min (>60); Est Glom Filt Rate - Afr Amer 104 mL/min (>60); Globulin 3.3 g/dL (2.2-4.2); Glucose 119 mg/dL (74-106); High Density Lipoprotein 52 mg/dL; Potassium 3.9 mmol/L (3.5-5.1); Protein, Total 6.3 g/dL (6.4-8.2); Sodium Level 142 mmol/L (136-145); Triglycerides 96 mg/dL; Very Low Density Lipoprotein 19 mg/dL (5-40)
[2023-11-17 11:19] LABS: AST(SGOT) 17 U/L (15-37); Alanine Aminotransfer ALT/SGPT 18 U/L (13-56); Albumin, Serum 2.9 g/dL (3.2-5.0); Alkaline Phosphatase 28 U/L (45-117); Bilirubin, Direct 0.17 mg/dL (0.00-0.30); Globulin 3.4 g/dL (2.2-4.2); Protein, Total 6.3 g/dL (6.4-8.2)
== END | disposition home or self-care (01) ==
LOC: LAB 09:40
PROVIDERS: Physician Assistant Medical; PCP Family Medicine; Referring Provider Family Medicine; Visit Provider Family Medicine
DX: I10 Essential (primary) hypertension (principal); J44.9 Chronic obstructive pulmonary disease, unspecified
CPT/HCPCS: 36415; 80053; 80061; 80076; 82043; 82570; 85025

== ENCOUNTER 2023-12-16 17:52 | Emergency (ER) | payer MEDICARE, OTHER, SELFPAY ==
[2023-12-16 17:53] VITALS: BP 195/91; PULSE 102; RESP 16; TEMP 36.7; O2SAT 96
--- NOTE | 2023-12-16 18:09 | EDS_ITS ---
HPI History of Present Illness Chief Complaint: Laceration Informant: patient and family Narrative Narrative: Patient present secondary to her left lower leg laceration. Patient caught her leg with the edge of the car door causing a V-shaped skin tear/laceration. She is unsure of her last tetanus update. She was able to ambulate after the injury. [facility] Medical History Dementia Atrial fibrillation Longstanding persistent atrial fibrillation Obesity Non-ST elevation (NSTEMI) myocardial infarction (08/2014) Essential (primary) hypertension Ventricular bigeminy Symptomatic bradycardia IBS (irritable bowel syndrome) Ganglion cyst of dorsum of left wrist Atherosclerotic heart disease of [place] coronary artery without angina pectoris Hyperlipemia Hypoxemia Hypersomnia Chest pain Home Medications ?Medication ?Instructions ?Recorded ?Last Taken ?Type aspirin 81 mg chewable tablet 81 mg PO DAILY HEART HEALTH 01/17/15 11/20/18 History cholecalciferol (vitamin D3) 25 1,000 unit PO DAILY SUPPLEMENT 10/09/16 Unknown History mcg (1,000 unit) capsule multivitamin 1 ea PO DAILY SUPPLEMENT 10/09/16 Unknown History ascorbic acid (vitamin C) 1,000 mg 1,000 mg PO TID SUPPLEMENT 09/01/17 Unknown History tablet calcium citrate 500 mg PO BID SUPPLEMENT 09/01/17 Unknown History docusate sodium 100 mg capsule 100 mg PO QHS STOOL SOFTENER 11/20/18 Unknown History atorvastatin 40 mg tablet 40 mg PO QHS cholesterol #90 tabs 05/01/20 Unknown Rx isosorbide mononitrate 30 mg 30 mg PO DAILY HEART #90 tabs 05/01/20 Unknown Rx tablet,extended release 24 hr donepezil 10 mg tablet 10 mg PO DAILY 11/27/21 Unknown History metoprolol tartrate 25 mg tablet 25 mg PO BID #180 tabs 06/15/22 Unknown Rx levocetirizine 5 mg tablet 5 mg PO DAILY 06/18/22 Unknown History mirtazapine 15 mg tablet 15 mg PO QHS 11/26/22 Unknown History ramipril 1.25 mg capsule 1.25 mg PO DAILY 11/26/22 Unknown History rivaroxaban 15 mg tablet (Xarelto) See Rx Instructions .Route 07/15/23 Unknown Rx .COMPLEX #30 tabs famotidine 20 mg tablet (Pepcid) 20 mg PO DAILY #90 tabs 12/02/23 Unknown Rx nitroglycerin 0.4 mg sublingual 0.4 mg sublingual Q5M PRN Chest 12/02/23 Unknown Rx tablet Pain #25 tabs Allergy/AdvReac Type Severity Reaction Status Date / Time amoxicillin Allergy Unknown Verified 12/16/23 17:55 Family History Mother CAD (coronary artery disease) Myocardial infarction Father Alzheimer disease Brother Heart disease Dementia Hypertension Surgical History H/O wrist surgery History of coronary artery stent placement (08/31/14) Social History household members: family Smoking Status: Never smoker second hand exposure: No alcohol intake: never substance use type: does not use ROS ROS ED Constitutional Constitutional ED: Denies chills or fever(s) ENT ENT ED: Denies rhinorrhea or sore throat Cardiovascular Cardiovascular: Denies chest pain Respiratory/Chest Respiratory/Chest: Denies cough or dyspnea Gastrointestinal Gastrointestinal: Denies abdominal pain, nausea or vomiting Musculoskeletal Musculoskeletal: Reports extremity pain; Denies back pain Integumentary Reports other Details: Left lower extremity laceration ; Denies Abrasions or rash Neurologic Neurologic: Denies headache(s) or weakness Psychiatric Psychiatric: Denies anxiety or depression Endocrine Endocrinology: Denies polydipsia or polyuria Allergic/Immunologic Allergic/Immunologic ED: Denies lip swelling or urticaria EXAM Physical Exam Const Vital Signs: 12/16/23 17:53 Temperature 98.1 F Temperature Source Temporal Pulse Rate 102 H Respiratory Rate 16 Blood Pressure 195/91 H Blood Pressure Mean 125 Pulse Ox 96 Oxygen Delivery Method Room Air Positive well nourished and well developed General Appearance ED: well developed HEENT Reports moist mucous membranes Chest Wall inspection of chest normal and palpation of chest normal Resp normal respiratory effort and clear to auscultation bilaterally Cardio regular rate and regular rhythm GI non-tender Palpation: soft Extremity Extremity Narrative: V-shaped laceration with a total laceration length of 2.5 cm over the lateral portion of the left lower leg. No active bleeding at this time. No tenderness at the knee or ankle. Neuro oriented x3 and moves all extremities MDM MDM MDM Narrative Medical decision making narrative: It appears in records that patient's last tetanus shot was in 2016. This will be updated today. Treatment and Re-Evaluation Narrative: Wound is anesthetized 5 cc 1% lidocaine. Wound is thoroughly cleansed and irri gated. 3 simple sutures of 4-0 nylon are placed with good approximation. Antibiotic ointment placed and wound dressing applied. Wound care discussed with family member at bedside. Patient is to have sutures removed in 7 to 10 days. Discharge Plan Triage Chief Complaint: Laceration ED Provider: Ree Amos Dx/Rx/DC Orders Clinical Impression: Laceration of leg Instructions: ED Laceration, All Closures Prescriptions: No Action calcium citrate 250 mg calcium tablet 500 mg PO BID ascorbic acid (vitamin C) 1,000 mg tablet 1,000 mg PO TID atorvastatin 40 mg tablet 40 mg PO QHS Qty: 90 3RF isosorbide mononitrate 30 mg tablet extended release 24 hr 30 mg PO DAILY Qty: 90 3RF donepezil 10 mg tablet 10 mg PO DAILY Patient Comments: TAKE ONE TABLET BY MOUTH EVERY MORNING with food mirtazapine 15 mg tablet 15 mg PO QHS famotidine [Pepcid] 20 mg tablet 20 mg PO DAILY Qty: 90 1RF nitroglycerin 0.4 mg tablet, sublingual 0.4 mg SUBLINGUAL Q5M PRN (Reason: Chest Pain) Qty: 25 3RF aspirin 81 MG tablet,chewable 81 mg PO DAILY Patient Comments: heart health multivitamin 1 EACH tablet 1 ea PO DAILY cholecalciferol (vitamin D3) 1,000 UNIT capsule 1,000 unit PO DAILY docusate sodium 100 MG capsule 100 mg PO QHS levocetirizine 5 mg Tablet 5 mg PO DAILY metoprolol tartrate 25 mg tablet 25 mg PO BID Qty: 180 3RF ramipril 1.25 mg capsule 1.25 mg PO DAILY Xarelto 15 mg tablet See Rx Instructions .ROUTE .COMPLEX Qty: 30 11RF Dose Instruction: TAKE ONE TABLET BY MOUTH DAILY Rx Instructions: TAKE ONE TABLET BY MOUTH DAILY Primary Care Provider: Yosi Oliver Referrals: Yosi Oliver MD [Primary Care Provider] - 10 Day for suture removal Print Language: Bulgarian Disposition Disposition: Home, Self Care
[2023-12-16 18:19] VITALS: BMI 34.7
[2023-12-16] MEDS: Lidocaine 1% (20 ml mdv) 20 ML Vial INFILT (18:25)
[2023-12-16] MEDS: Diphth,Pertuss(Acell),Tet Vac 0.5 ML Vial IM (18:26)
[2023-12-16 18:45] VITALS: BP 160/73; PULSE 98; RESP 17; TEMP 36.7; O2SAT 98
== END 2023-12-16 19:00 | disposition home or self-care (01) ==
LOC: ED 18:50
PROVIDERS: Emergency Provider Emergency Medicine; PCP Family Medicine; Visit Provider Emergency Medicine
DX: S81.812A Laceration without foreign body, left lower leg, initial encounter (principal); I25.2 Old myocardial infarction; W23.0XXA Caught, crushed, jammed, or pinched between moving objects, initial encounter
CPT/HCPCS: 12001; 90715; 99285

== ENCOUNTER → 2024-07-07 | Outpatient (CLI) | payer MEDICARE, OTHER, SELFPAY ==
--- NOTE | 2024-07-07 14:10 | US_ITS ---
STUDY: ULTRASOUND BREAST - RIGHT REASON FOR EXAM: Female, 89 years old. Abnormal mammogram. Enlargement of the right nipple. TECHNIQUE: Axial and longitudinal images of the RIGHT breast were performed with a high resolution ultrasound transducer. # OF IMAGES: 44 COMPARISON: Comparison is made with prior mammogram dated July 07, 2024. FINDINGS: RIGHT Breast: The mammographic abnormality corresponds to a 1.3 cm x 1.3 cm x 1.5 cm heterogeneous irregular mass in the retroareolar region. Inferior to this, there is also evidence of a irregular mass measuring 1.6 x 2.4 cm x 2.3 cm. Biopsy recommended. US/Breast Limited Unilateral IMPRESSION: 2 adjacent suspicious nodules in the right breast as described. Biopsy recommended. ASSESSMENT CATEGORY: BIRADS Category 5: Highly Suggestive of Malignancy - Appropriate Action Should Be Taken. A letter regarding these results will be sent to the patient by the facility within 30 days. Electronically Signed: Marlon Ahmadi MD at 11:57 EST ,
--- NOTE | 2024-07-07 14:10 | BI_ITS ---
MAMMOGRAPHY - BILATERAL DIAGNOSTIC REASON FOR EXAM: Female, 89 years old. R inverted nipple and 3mm retroareolar mass PERTINENT HISTORY: Non-contributory. TECHNIQUE: Digital examination. Mediolateral oblique (MLO) and craniocaudad (CC) views of both breasts were obtained, along with 3-D, grams. CAD: CAD was performed on this study. COMPARISON: 2018 FINDINGS: Breast Composition: There are scattered areas of fibroglandular density. There are no dominant masses or suspicious calcifications. Stable punctate and vascular calcifications. There is more conspicuous architectural distortion in the retroareolar region of the right breast compared to the previous study with the outsoles channel opener also noting a palpable lump. Further evaluation of this area with ultrasound is recommended. The left breast is stable and unchanged and free of mammographic abnormality BI/DIAG MAMM W/CAD, BILAT IMPRESSION: Further ultrasonographic evaluation recommended, as described above. Recall Side: Right Breast ASSESSMENT CATEGORY: BIRADS Category 0: Incomplete. Need additional imaging evaluation. A letter regarding these results will be sent to the patient by the facility within 30 days. FOLLOW UP RECOMMENDATION: Ultrasound Recommended. (I) Approximately 10% of breast cancers are not detected by mammography. A normal mammogram should not delay biopsy of a clinically suspicious abnormality. Electronically Signed: Peter Owens MD at 15:08 EST ,
== END | disposition home or self-care (01) ==
LOC: OPBI 14:10
PROVIDERS: PCP Family Medicine; Referring Provider Family Medicine; Visit Provider Family Medicine
DX: N64.59 Other signs and symptoms in breast (principal)
CPT/HCPCS: 76642; 77062; 77066; G0279

== ENCOUNTER → 2024-07-18 | Outpatient (CLI) | payer MEDICARE, OTHER, SELFPAY ==
--- NOTE | 2024-07-18 13:05 | BRBX_PTH ---
PATIENT: JOSE GARZA LOC: [facility] U#:[id number] AGE/SX: 89/F ROOM: RE07/18/[address]: Dr. Tanmay Barclay MD : [id number] BED: DIS: 07/18/2024 SPEC #: [id number] RECD: 07/18/24 14:08 STATUS: CHRISTINE RAMSEY #: [id number] MERCEDES: 07/18/24 13:[address]: Tanmay Barclay DEPT: SURGICAL PATHOLOGY RECD BY: Trish Whatley ENTERED: 07/20/24 10:25 SP TYPE: BREAST BX OTHR DR: Dr. Yosi Oliver MD Tissues: Right breast, NOS Procedures: Surgery Specimen Level IV HEADER OPERATION: Ultrasound guided needle core biopsy right breast x1 PRE-OP DIAGNOSIS: Abnormal mammogram TISSUE SUBMITTED: Right breast tissue Ischemic Time: 1 minute Fixation Time: 31 hours MICROSCOPIC DIAGNOSIS Right breast mass, ultrasound guided needle core biopsy: Extensive dense fibrosis with focal calcifications. Focal minimal intraductal hyperplasia without atypia. Negative for malignancy. See comment. 07/20/2024 COMMENT Correlation with clinical, radiologic findings and appropriate follow up are necessary. MICROSCOPIC DESCRIPTION Slides are reviewed. GROSS DESCRIPTION Received in fixative is one container labeled with the patient's name and designated Right breast mass. The specimen consists of multiple elongated fragments of [place]-yellow fibroadipose tissue that in aggregate measure 2.0 x 0.5 x 0.1 cm. The specimen is totally submitted in one cassette. 07/19/2024 TC:5 CPT:44641
== END | disposition home or self-care (01) ==
LOC: LABSPEC 14:13
PROVIDERS: PCP Family Medicine; Referring Provider Surgery; Visit Provider Surgery
DX: N60.31 Fibrosclerosis of right breast (principal); N60.81 Other benign mammary dysplasias of right breast
CPT/HCPCS: 88305

== ENCOUNTER 2024-08-24 00:27 | Emergency (ER) | payer MEDICARE, OTHER, SELFPAY ==
[2024-08-24 00:28] VITALS: BP 189/82; PULSE 86; RESP 18; TEMP 36.6; O2SAT 94
[2024-08-24 00:33] VITALS: BMI 31.6
--- NOTE | 2024-08-24 01:32 | CT_ITS ---
PROCEDURE: SPINE CERVICAL WITHOUT CONTRAST REASON FOR EXAM: 89-year-old female, fell on bathroom floor, currently on blood thinners. TECHNIQUE: Cervical spine CT without contrast. COMPARISON: None. FINDINGS: Straightening of the normal cervical lordosis. Mild chronic vertebral body height loss. Alignment: Grade 1 anterolisthesis of C4 onto C5. Grade 1 retrolisthesis of C5 onto C6. Multilevel degenerative disc disease, posterior disc osteophyte complexes and facet hypertrophy results in mild central canal and bilateral neural foraminal stenosis. Vertebrae: No acute fracture or traumatic subluxation. Soft Tissues: No soft tissue hematoma. Calcific plaque of the bilateral carotid arteries. CT/Spine Cervical without Contras IMPRESSION: No acute fracture or traumatic subluxation. Degenerative changes as described. One or more dose reduction techniques were used (e.g., Automated exposure contr ol, adjustment of the mA and/or kV according to patient size, use of iterative reconstruction technique). Reading Location: [id number]
--- NOTE | 2024-08-24 01:32 | CT_ITS ---
EXAM: BRAIN/HEAD WITHOUT CONTRAST CLINICAL HISTORY: 89-year-old female, fall, laceration on back of head, currently on blood thinners. COMPARISON: CT head 09/03/2022. TECHNIQUE: Routine CT imaging of the head without IV contrast. Additional multiplanar reformats were obtained. Dose reduction techniques were used including intermediate exposure control (AEC),iterative reconstruction technique, and/or mA and/or KV dose adjustments based on patient's size. FINDINGS: Mild generalized cerebral and cerebellar volume loss with concordant prominence of the ventricles and subarachnoid spaces. Moderate patchy supratentorial white matter hypodensities. The francois-white matter interfaces are otherwise maintained. No acute intracranial hemorrhage or herniation. The basal cisterns are patent. Small posterior scalp laceration. No acute calvarial fracture. Prior ocular lens replacements. Right maxillary retention cyst or polyp. CT/Brain/Head without Contrast IMPRESSION: Small posterior scalp laceration. Otherwise stable CT head. Reading Location: [id number]
--- NOTE | 2024-08-24 03:15 | EX.ED.DYSGE1 ---
HPI History of Present Illness Chief Complaint: Head Injury Informant: patient and family Narrative Narrative: Patient is a 89-year-old female with past medical history of hypertension hyperlipidemia persistent atrial fibrillation currently on Xarelto and dementia. Daughter states that the patient lives with her. She states that she keeps a monitor in her room so she can hear if there is any potential injury. She states that she heard on the monitor that the patient was up and moving and then heard a thud. She states she went to the patient's bedroom and found her lying on her back with her head in the bathroom and it appeared she struck her head off the baseboard. She states the patient was awake and at her baseline mental status but with a head trauma and history of blood thinner use she had concern for internal injury as well as need for sutures and she was brought in for evaluation. Daughter does state the patient is acting at her baseline mental status [facility] Medical History Dementia Atrial fibrillation Longstanding persistent atrial fibrillation Obesity Non-ST elevation (NSTEMI) myocardial infarction (08/2014) Essential (primary) hypertension Ventricular bigeminy Symptomatic bradycardia IBS (irritable bowel syndrome) Ganglion cyst of dorsum of left wrist Atherosclerotic heart disease of [place] coronary artery without angina pectoris Hyperlipemia Hypoxemia Hypersomnia Chest pain Home Medications ?Medication ?Instructions ?Recorded ?Last Taken ?Type cholecalciferol (vitamin D3) 25 1,000 unit PO DAILY SUPPLEMENT 10/09/16 Unknown History mcg (1,000 unit) capsule multivitamin 1 ea PO DAILY SUPPLEMENT 10/09/16 Unknown History ascorbic acid (vitamin C) 1,000 mg 1,000 mg PO TID SUPPLEMENT 09/01/17 Unknown History tablet calcium citrate 500 mg PO BID SUPPLEMENT 09/01/17 Unknown History docusate sodium 100 mg capsule 100 mg PO QHS STOOL SOFTENER 11/20/18 Unknown History atorvastatin 40 mg tablet 40 mg PO QHS cholesterol #90 tabs 05/01/20 Unknown Rx donepezil 10 mg tablet 10 mg PO DAILY 11/27/21 Unknown History metoprolol tartrate 25 mg tablet 25 mg PO BID #180 tabs 06/15/22 Unknown Rx mirtazapine 15 mg tablet 15 mg PO QHS 11/26/22 Unknown History ramipril 1.25 mg capsule 1.25 mg PO DAILY 11/26/22 Unknown History nitroglycerin 0.4 mg sublingual 0.4 mg sublingual Q5M PRN Chest 12/02/23 Unknown Rx tablet Pain #25 tabs famotidine 20 mg tablet (Pepcid) 20 mg PO DAILY #90 tabs 05/29/24 Unknown Rx rivaroxaban 15 mg tablet (Xarelto) See Rx Instructions .Route 07/11/24 Unknown Rx .COMPLEX #30 tabs isosorbide dinitrate 30 mg tablet 30 mg PO DAILY PRN HEART 08/24/24 Unknown History Allergy/AdvReac Type Severity Reaction Status Date / Time amoxicillin Allergy Unknown Verified 08/24/24 00:28 Family History Mother CAD (coronary artery disease) Myocardial infarction Father Alzheimer disease Brother Heart disease Dementia Hypertension Surgical History H/O wrist surgery History of coronary artery stent placement (08/31/14) Social History household members: family Smoking Status: Never smoker second hand exposure: No alcohol intake: never substance use type: does not use ROS ROS ED ROS Narrative Please note review of systems may be unreliable as patient has history of dementia Constitutional Constitutional ED: Denies chills or fever(s) Eyes Eyes: Denies blurry vision or change in vision ENT ENT ED: Denies sore throat Cardiovascular Cardiovascular: Reports other Details: Negative syncope ; Denies chest pain Respiratory/Chest Respiratory/Chest: Denies cough or dyspnea Gastrointestinal Gastrointestinal: Denies abdominal pain, diarrhea, nausea or vomiting Genitourinary Genitourinary ED: Denies dysuria Musculoskeletal Musculoskeletal: Denies back pain or neck pain Integumentary Reports other Details: Positive scalp laceration Neurologic Neurologic: Denies headache(s) or paresthesias Hematologic/Lymphatic Hematologic/Lymphatic: Reports easy bleeding and easy bruising EXAM Physical Exam Const Vital Signs: 08/24/24 00:28 08/24/24 00:33 08/24/24 03:23 Temperature 97.8 F 98.5 F Temperature Source Oral Pulse Rate 86 90 Respiratory Rate 18 18 Respiratory Effort Normal Respiratory Depth Normal Respiratory Pattern Normal Blood Pressure 189/82 H 139/74 H Blood Pressure Mean 117 95 Pulse Ox 94 98 Oxygen Delivery Method Room Air Room Air Positive well nourished and well developed General Appearance ED: well developed HEENT HEENT Narrative: Linear 5 cm subcutaneous layer deep laceration over the mid to left portion of the occipital scalp. There is mild ooze of blood without foreign body. There is a surrounding scalp hematoma as well No signs of depressed or basilar skull fracture Eyes PERRL and EOMs intact bilaterally Neck supple Neck Narrative: No bony deformity or step-off of the cervical spine no midline tenderness to palpation Chest Wall palpation of chest normal Resp normal respiratory effort and clear to auscultation bilaterally Cardio regular rate Rate: other Other Details: Irregularly irregular rhythm with regular rate consistent with history of atrial fibrillation GI normal to inspection, nondistended, normoactive bowel sounds, non-tender, non-distended and no masses Auscultation: normoactive bowel sounds Palpation: soft Back/Spine Back/Spine Narrative: No bony deformity or step-off of the thoracic or lumbar spine no midline tenderness to palpation Extremity normal to inspection Extremity Narrative: Pelvis is stable there is no shortening or external rotation of either lower extremity Patient is able to move all extremities without difficulty No obvious bony deformities or joint effusions Neuro CN's II-XII intact bilaterally and no sensory deficits noted Neuro Narrative: Patient is at her baseline mental status per daughter without focal neurologic deficit Sensorium / Orientation: alert Motor Exam: strength 5/5 throughout Psych mental status grossly normal Skin Skin Narrative: Laceration and hematoma to the occipital portion of the scalp as documented above MDM MDM MDM Narrative Medical decision making narrative: Patient arrived to the ER hypertensive but has a past medical history of this. Patient is unsure how she fell but has a history of dementia and daughter states she heard the entire event on the monitor. At this time I have low concern for syncopal event or cardiac dysrhythmia as she has known A-fib and is rate controlled at this time. With concern that she may have an acute skull fracture or brain bleed or cervical spine injury such as compression fracture or spondylolisthesis I did elect to perform CTs of the head and neck. This revealed no signs of acute trauma. Therefore the patient had her wound closed as documented below and she is otherwise safe for discharge Patient had the scalp laceration cleaned with chlorhexidine. The area was anesthetized with a total of 8 mL of 2% lidocaine with epinephrine in local fashion. The wound was copiously irrigated with normal saline. Patient then had manual pressure applied to the wound edges to bring them together with close approximation and the wound was then closed with a total of 15 justyn. Patient tolerated the procedure well without complication History & Record Review Discussion w/independent historian: Patient and Family Radiography Diagnostic Testing: Clinical Impression(s) from Imaging Studies Brain CT 08/24/24 01:32 IMPRESSION: Small posterior scalp laceration. Otherwise stable CT head. Reading Location: [facility] Cervical Spine CT 08/24/24 01:32 IMPRESSION: No acute fracture or traumatic subluxation. Degenerative changes as described. One or more dose reduction techniques were used (e.g., Automated exposure control, adjustment of the mA and/or kV according to patient size, use of iterative reconstruction technique). Reading Location: [facility] Discharge Plan Triage Chief Complaint: Head Injury Other Complaint: Laceration ED Provider: Jose Eller Dx/Rx/DC Orders Clinical Impression: Laceration of occipital region of scalp, Current use of terminal worker anticoagulation, Essential (primary) hypertension, Longstanding persistent atrial fibrillation Instructions: ED Head Injury (Adult), ED Laceration Scalp Stitches or [place] Prescriptions: No Action calcium citrate 250 mg calcium tablet 500 mg PO BID ascorbic acid (vitamin C) 1,000 mg tablet 1,000 mg PO TID atorvastatin 40 mg tablet 40 mg PO QHS Qty: 90 3RF donepezil 10 mg tablet 10 mg PO DAILY Patient Comments: TAKE ONE TABLET BY MOUTH EVERY MORNING with food mirtazapine 15 mg tablet 15 mg PO QHS nitroglycerin 0.4 mg tablet, sublingual 0.4 mg SUBLINGUAL Q5M PRN (Reason: Chest Pain) Qty: 25 3RF multivitamin 1 EACH tablet 1 ea PO DAILY cholecalciferol (vitamin D3) 1,000 UNIT capsule 1,000 unit PO DAILY docusate sodium 100 MG capsule 100 mg PO QHS isosorbide dinitrate 30 mg tablet 30 mg PO DAILY PRN (Reason: HEART) metoprolol tartrate 25 mg tablet 25 mg PO BID Qty: 180 3RF ramipril 1.25 mg capsule 1.25 mg PO DAILY famotidine [Pepcid] 20 mg tablet 20 mg PO DAILY Qty: 90 1RF Xarelto 15 mg tablet See Rx Instructions .ROUTE .COMPLEX Qty: 30 11RF Dose Instruction: TAKE ONE TABLET BY MOUTH DAILY Rx Instructions: TAKE ONE TABLET BY MOUTH DAILY Primary Care Provider: Yosi Oliver Referrals: Yosi Oliver MD [Primary Care Provider] - Activity Restrictions/Additional Instructions: Please see your family doctor or return to the ER in 10 to 14 days for staple removal Print Language: [place] Disposition Disposition: Home, Self Care Discharge Date/Time: 08/24/24 03:27
[2024-08-24] MEDS: Lidocaine 2% /Epi 1:100 (20ml) 20 ML VIAL INFILT (03:21)
[2024-08-24 03:23] VITALS: BP 139/74; PULSE 90; RESP 18; TEMP 36.9; O2SAT 98
== END 2024-08-24 03:27 | disposition home or self-care (01) ==
PROVIDERS: Emergency Provider Emergency Medicine; PCP Family Medicine; Visit Provider Emergency Medicine
DX: S01.01XA Laceration without foreign body of scalp, initial encounter (principal); F03.90 Unspecified dementia, unspecified severity, without behavioral disturbance, psychotic disturbance, mood disturbance, and anxiety; I48.11 Longstanding persistent atrial fibrillation; X58.XXXA Exposure to other specified factors, initial encounter; E78.5 Hyperlipidemia, unspecified; I25.10 Atherosclerotic heart disease of native coronary artery without angina pectoris; I10 Essential (primary) hypertension; Z95.5 Presence of coronary angioplasty implant and graft; Z79.01 Long term (current) use of anticoagulants; Z79.899 Other long term (current) drug therapy
CPT/HCPCS: 12002; 70450; 72125; 99284

== ENCOUNTER → 2024-09-13 | Outpatient (CLI) | payer MEDICARE, OTHER, SELFPAY ==
--- NOTE | 2024-09-13 11:31 | RAD_ITS ---
EXAM: XR Abdomen, 1 View CLINICAL INDICATION: ABD PAIN TECHNIQUE: Frontal supine view of the abdomen/pelvis. COMPARISON: No relevant prior studies available. FINDINGS: GASTROINTESTINAL TRACT: Fecal retention in the colon consistent with constipation. No dilation. BONES/JOINTS: Unremarkable. No acute fracture. RAD/Abdomen Single View IMPRESSION: Fecal retention in the colon consistent with constipation. Reading Location: [facility]
== END | disposition home or self-care (01) ==
LOC: MTRAD 11:31
PROVIDERS: PCP Family Medicine; Visit Provider Family Medicine
DX: R10.9 Unspecified abdominal pain (principal)
CPT/HCPCS: 74018